=== PATIENT | female | born 1945 | race Caucasian/White ===

== ENCOUNTER 2018-04-07 08:39 | Outpatient (CLI) | payer MEDICARE, BC, SELFPAY ==
[2018-03-27 14:55] VITALS: BMI 29.2
[2018-04-07] VITALS (7 sets, daily range): BP systolic 121–145; BP diastolic 49–72; PULSE 69–74; RESP 16; TEMP 36.9–37.2; O2SAT 95–99
== END 2018-04-07 16:15 | disposition home or self-care (01) ==
LOC: MEDOUTP 08:40 → MS3 08:45
PROVIDERS: Referring Provider Internal Medicine Hematology & Oncology; Visit Provider Internal Medicine Hematology & Oncology
DX: Z51.89 Encounter for other specified aftercare (principal); D64.9 Anemia, unspecified; D70.9 Neutropenia, unspecified
CPT/HCPCS: 36430; 86644; 86850; 86900; 86920; 86922; J7040; P9040

== ENCOUNTER → 2018-04-30 13:54 | Outpatient (CLI) | payer MEDICARE, BC, SELFPAY ==
[2018-03-27 14:55] VITALS: BMI 29.2
[2018-04-30 14:19] LABS: Phosphorus 3.3 mg/dL (2.5-4.9)
== END ==
PROVIDERS: Referring Provider Internal Medicine Hematology & Oncology; Visit Provider Internal Medicine Hematology & Oncology
DX: C92.00 Acute myeloblastic leukemia, not having achieved remission (principal)
CPT/HCPCS: 84100

== ENCOUNTER → 2018-05-01 12:02 | Outpatient (CLI) | payer MEDICARE, BC, SELFPAY ==
[2018-03-27 14:55] VITALS: BMI 29.2
[2018-05-01 12:30] LABS: Phosphorus 3.2 mg/dL (2.5-4.9)
== END ==
PROVIDERS: Referring Provider Internal Medicine Hematology & Oncology; Visit Provider Internal Medicine Hematology & Oncology
DX: C92.00 Acute myeloblastic leukemia, not having achieved remission (principal)
CPT/HCPCS: 84100

== ENCOUNTER → 2018-05-07 08:28 | Outpatient (CLI) | payer MEDICARE, BC, SELFPAY ==
[2018-03-27 14:55] VITALS: BP 118/62; PULSE 74; RESP 17; TEMP 36.7; O2SAT 98; BMI 29.2
--- NOTE | 2018-03-27 15:15 | HP.PCM_ITS ---
History and Physical Date of Admission: 04/11/18 History and Physical Patient Name: Mary Jane White: 1945 From: [facility] DATE OF SURGERY: 04/11/2018 SCHEDULED PROCEDURE: right total hip replacement HISTORY OF PRESENT ILLNESS: This is a 72-year-old female with chief complaint of right hip pain it's been ongoing since August 2017 in getting worse. Pain is increased with stairs walking prolonged sitting and driving. He is described as intermittent dull and aching. The pain is located in the right groin. It does awaken her from sleep at night. Activity modifications including reduced ability to perform normal daily activities. Housework and grocery shopping are becoming increasingly difficult due to the progressive worsening of the right hip pain. Patient does perceive the affected leg is shorter than the other. Previous treatments have included shoe lift in the right shoe rest heat elevation [id number] ibuprofen and skin care specialist without any significant relief of her symptoms. She has not had any previous surgeries on this joint. She feels she failed adequate nonoperative measures and wishes to proceed with a right total hip replacement at this time. REVIEW OF SYSTEMS: ROS: Const: Denies anorexia, change in appetite, fever, difficulty sleeping, weight change. CV: Denies chest pain, heart murmur, irregular heartbeat and peripheral vascular disease. Resp: Denies asthma, cough, pneumonia, sleep apnea, shortness of breath, tuberculosis and wheezing. GI: Denies constipation, diarrhea, heartburn, nausea, rectal itching, bloody stools and vomiting. : . (F Genital Sx) Denies incontinence. Musculo: Denies pain, trouble walking and weakness. Skin: Reports history of shingles, but denies Raynaud's and tattoo. Neuro: Denies ambulatory dysfunction, dizziness, numbness/tingling and tremor. Psych: Denies anxiety, depression, insomnia, mental illness and stress. Tyler/Lymph: Denies anemia, bleeding/bruising tendency and past transfusion. Reviewed, no changes. PAST MEDICAL HISTORY: Advance Care Plan: No Advance Directives Effective Date: 03/16/2018 PMH: Medical Problems: High Blood Pressure - ? History Of Phlebitis, Gout, Arthritis Accidents: RT Shoulder - DISLOCATED & FX Surgical Hx: Hysterectomy - 1990 [facility] Tubal Ligation - [facility] Anesthesia Complications: None Assistive Devices: Glasses Reviewed and updated. 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 Personal Habits: Cigarette Use: Never Smoked Cigarettes.E-Cigarette Use: Never used.Alcohol: Denies use.Drug Use: Denies Use.Enjoy Exercising: Daily. Reviewed and updated. 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 Respiratory: Assessment of respiratory effort: NORMAL Other: Auscultation of lungs: clear to auscultation no wheezes, rhonchi or rales. Cardiovascular: Auscultation of heart: regular rate and rhythm, no murmurs, gallops or rubs. Exam of carotid arteries: NORMAL Other: Gastrointestinal: Exam of abdomen: soft, nontender, nondistended bowel sounds present. Lymphatic: Palpation of nodes in neck: NORMAL Other: Palpation of nodes in Axillae: NORMAL Other: Neurological: see below Psychiatric: Orientation to time, place and person: NORMAL Other: Mood and affect: NORMAL Other: PHYSICAL EXAMINATION: Exam: Const: Appears healthy. No signs of apparent distress present. Alert and oriented x 3. Musculo: Mild antalgic gait Hips: Insp/Palp: Mild trochanteric tenderness bilaterally Left hip: Flexion 95 degrees with obligatory external rotation, 5 degrees internal rotation, 15 degrees external rotation. 5/5 hip flexion Right hip: Flexion 90 degrees, 5 degrees internal rotation with reproduction of pain, 15 degrees external rotation. 5/5 hip flexion strength 3mm shorter on the right Skin: Skin is warm, dry and intact. Neuro: Sensation to light touch is intact in the lower extremities deep peroneal, lower extremities dorsal cutaneous, lower extremities saphenous, lower extremities sural and lower extremities tibial nerve distribution. Neurological and vascular function intact. IMAGING STUDIES: X-rays of right hip from [facility] as well as [facility] dated March 27, 2018 are consistent with joint space narrowing, subchondral sclerosis and osteophyte formation consistent with severe osteoarthritis IMPRESSION: Primary osteoarthritis right hip Hypertension History of phlebitis Gout PLAN: The surgeon did discuss and review all treatment options with the patient including surgical versus nonsurgical. At this time the patient does wish to proceed with the above-stated procedure. Potential risks benefits and complications of the procedure were discussed and reviewed with the patient including but not limited to , infection, nerve and blood vessel damage, persistent pain, numbness, tingling, paresthesias, blood clot, pulmonary embolism, in the requirement for possible further surgery. Patient expressed full understanding. Has no further questions for the doctor. Does agree to proceed with the above-stated procedure, and has signed the appropriate surgery consent form. Their plan is for discharge to home upon leaving the hospital
--- NOTE | 2018-03-27 15:17 | SDCEKG_ITS ---
Test Reason : Blood Pressure : / mmHG Vent. Rate : 068 BPM Atrial Rate : 068 BPM P-R Int : 166 ms QRS Dur : 094 ms QT Int : 394 ms P-R-T Axes : 053 033 058 degrees QTc Int : 418 ms Normal sinus rhythm Normal ECG Confirmed by LIS WALTERS, NANO ([id number]), science editor MIKA LI ([id number] on 03/28/2018 10:03:28 AM Referred By: Jermain Chang Confirmed By:NANO HAYS MD
--- NOTE | 2018-03-27 15:48 | RAD_ITS ---
STUDY: X-RAY CHEST REASON FOR EXAM: Female, 72 years old. Pre-op. TECHNIQUE: PA and lateral views of the chest. COMPARISON: None. FINDINGS: The lungs are clear and expanded. There is no demonstrated pleural abnormality. Normal size heart. Normal mediastinum and harley. Normal visualized pulmonary arteries. Normal visualized aortic arch and descending thoracic aorta. There is demineralization of the osseous structures. There is an anterior compression deformity of a mid thoracic vertebra that is likely chronic. Normal visualized ribs, clavicles, and shoulders. There is no demonstrated abnormality of the visualized soft tissue structures of the upper abdomen. RAD/Chest PA and Lateral IMPRESSION: No acute cardiopulmonary process. Electronically Signed: Maryana Moya MD at 20:01 EST Tel , Service support ,
[2018-03-27 16:18] LABS: Anion Gap 7 (5-15); BUN 21 mg/dL (7-18); BUN/Creat Ratio 19.3 RATIO (10-20); Calcium,Total 8.8 mg/dL (8.5-10.1); Chloride 95 mmol/L (98-107); Creatinine, Serum 1.09 mg/dL (0.55-1.02); EST Glomerular Filtration Rate 52 mL/min (>60); Est Glom Filt Rate - Afr Amer 63 mL/min (>60); Estimated Creatinine Clearance 33.51 ml/min; Glucose 97 mg/dL (74-106); Potassium 3.4 mmol/L (3.5-5.1); Sodium Level 132 mmol/L (136-145)
[2018-03-27 16:56] LABS: Absolute Lymphocyte Count 1.05 X10^3/ul (0.83-4.51); Absolute Neutrophil Count 0.7 X10^3/uL (2.0-7.7); Eosinophil# 0.01 X10^3/uL; Eosinophils% 0.6 % (0-5); Hematocrit 19.4 % (37-47); Hemoglobin 6.5 g/dl (12.0-15.0); Lymphocyte # 1.05 X10^3/ul (4.0); Lymphocyte % 58.3 % (19-41); Mean Corp Hgb Conc 33.5 g/gl (32-36); Mean Corpuscular Hgb 39.9 pg (27.0-32.0); Mean Platelet Vol. 9.1 fl (6.2-12.0); Monocyte# 0.06 X10^3/uL; Monocyte% 3.3 % (0-10); Neutrophil # 0.66 X10^3/uL (2.7-7.7); Neutrophil % 36.7 % (47-70); Platelet Count 191 K/mm3 (150-450); RBC Distribution Width CV 14.5 % (11.6-14.6); RBC Distribution Width SD 62.4 fl (35.1-43.9); Red Blood Count 1.63 M/mm3 (4.2-5.4); White Blood Count 1.8 K/mm3 (4.4-11.0)
[2018-03-27 16:59] LABS: Differential Indicated SCAN CRITERIA MET; POSITIVE COUNT NO; POSITIVE DIFFERENTIAL YES; POSITIVE MORPHOLOGY NO
[2018-03-27 17:01] LABS: Anisocytosis 1+; Microcytosis RARE
== END ==
PROVIDERS: Referring Provider Specialist; Visit Provider Specialist
DX: M16.11 Unilateral primary osteoarthritis, right hip (principal); Z53.9 Procedure and treatment not carried out, unspecified reason; I10 Essential (primary) hypertension; M10.9 Gout, unspecified; Z86.72 Personal history of thrombophlebitis
CPT/HCPCS: 71046; 80048; 85025; 87081; 93005

== ENCOUNTER → 2018-05-08 08:02 | Outpatient (CLI) | payer MEDICARE, BC, SELFPAY ==
[2018-03-27 14:55] VITALS: BMI 29.2
[2018-05-08] VITALS (8 sets, daily range): BP systolic 122–154; BP diastolic 68–77; PULSE 74–89; RESP 16–18; TEMP 35.9–36.8; O2SAT 97–100; BMI 29.9
== END ==
PROVIDERS: Referring Provider Internal Medicine Hematology & Oncology; Visit Provider Internal Medicine Hematology & Oncology
DX: C92.00 Acute myeloblastic leukemia, not having achieved remission (principal)
CPT/HCPCS: 36430; 86850; 86900; 86920; 86922; J7040; P9016; A4216

== ENCOUNTER → 2018-06-04 13:14 | Outpatient (CLI) | payer MEDICARE, BC, SELFPAY ==
[2018-05-08 08:11] VITALS: BMI 29.9
== END ==
PROVIDERS: Referring Provider Internal Medicine Hematology & Oncology; Visit Provider Internal Medicine Hematology & Oncology
DX: C92.00 Acute myeloblastic leukemia, not having achieved remission (principal)
CPT/HCPCS: 86850; 86900; 86920; 86922

== ENCOUNTER → 2018-06-05 08:14 | Outpatient (CLI) | payer MEDICARE, BC, SELFPAY ==
[2018-05-08 08:11] VITALS: BMI 29.9
[2018-06-05] VITALS (7 sets, daily range): BP systolic 114–138; BP diastolic 61–97; PULSE 73–92; RESP 16; TEMP 36.2–36.8; O2SAT 97–100; BMI 29.9
== END ==
PROVIDERS: Referring Provider Internal Medicine Hematology & Oncology; Visit Provider Internal Medicine Hematology & Oncology
DX: C92.00 Acute myeloblastic leukemia, not having achieved remission (principal)
CPT/HCPCS: 36430; 86850; 86900; 86920; 86922; J7040; P9016; A4216

== ENCOUNTER → 2018-06-29 07:55 | Outpatient (CLI) | payer MEDICARE, BC, SELFPAY ==
[2018-06-05 08:23] VITALS: BMI 29.9
[2018-06-29 08:14] VITALS: BP 146/65; PULSE 100; RESP 16; TEMP 36.6; O2SAT 99; BMI 30.2
[2018-06-29 08:57] VITALS: BP 141/78; PULSE 89; RESP 18; TEMP 36.8
[2018-06-29 12:12] VITALS: BP 150/85; PULSE 95; RESP 16; TEMP 36.8; O2SAT 99
[2018-06-29 12:17] VITALS: BP 139/74; PULSE 78; RESP 16; TEMP 36.6; O2SAT 98
[2018-06-29 13:17] VITALS: BP 134/72; PULSE 86; RESP 16; TEMP 36.5
== END ==
PROVIDERS: Referring Provider Internal Medicine Hematology & Oncology; Visit Provider Internal Medicine Hematology & Oncology
DX: C92.00 Acute myeloblastic leukemia, not having achieved remission (principal)
CPT/HCPCS: 36430; 86644; 86850; 86900; 86920; 86922; J7040; P9040; A4216

== ENCOUNTER → 2018-07-13 07:55 | Outpatient (CLI) | payer MEDICARE, BC, SELFPAY ==
[2018-06-29 08:14] VITALS: BMI 30.2
[2018-07-13] VITALS (9 sets, daily range): BP systolic 117–164; BP diastolic 60–87; PULSE 73–93; RESP 15–18; TEMP 36.1–36.7; O2SAT 93–100; BMI 30.2
== END ==
PROVIDERS: Referring Provider Internal Medicine Hematology & Oncology; Visit Provider Internal Medicine Hematology & Oncology
DX: C92.00 Acute myeloblastic leukemia, not having achieved remission (principal)
CPT/HCPCS: 36430; 86644; 86850; 86900; 86920; 86922; 86965; J7040; P9037; P9040; A4216

== ENCOUNTER → 2018-08-03 07:59 | Outpatient (CLI) | payer MEDICARE, BC, SELFPAY ==
[2018-07-13 08:13] VITALS: BMI 30.2
[2018-08-03] VITALS (7 sets, daily range): BP systolic 116–156; BP diastolic 63–80; PULSE 77–99; RESP 16; TEMP 36.2–36.5; O2SAT 96–100; BMI 30.2
== END ==
PROVIDERS: Referring Provider Internal Medicine Hematology & Oncology; Visit Provider Internal Medicine Hematology & Oncology
DX: C92.00 Acute myeloblastic leukemia, not having achieved remission (principal)
CPT/HCPCS: 36430; 86644; 86850; 86900; 86920; 86922; J7040; P9040; A4216

== ENCOUNTER → 2018-08-10 08:03 | Outpatient (CLI) | payer MEDICARE, BC, SELFPAY ==
[2018-08-03 08:08] VITALS: BMI 30.2
[2018-08-10 08:25] VITALS: BP 122/64; PULSE 87; RESP 16; TEMP 36.3; O2SAT 100; BMI 30.2
[2018-08-10 09:20] VITALS: BP 120/65; PULSE 77; RESP 16; TEMP 36.1; O2SAT 100
[2018-08-10 09:59] VITALS: BP 130/64; PULSE 75; RESP 16; TEMP 36.2; O2SAT 100
== END ==
PROVIDERS: Referring Provider Internal Medicine Hematology & Oncology; Visit Provider Internal Medicine Hematology & Oncology
DX: Z51.89 Encounter for other specified aftercare (principal); C92.40 Acute promyelocytic leukemia, not having achieved remission
CPT/HCPCS: 36430; 86900; 86965; J7040; P9037; A4216

== ENCOUNTER → 2018-08-14 07:50 | Outpatient (CLI) | payer MEDICARE, BC, SELFPAY ==
[2018-08-10 08:25] VITALS: BMI 30.2
[2018-08-14] VITALS (9 sets, daily range): BP systolic 106–136; BP diastolic 52–76; PULSE 66–90; RESP 16; TEMP 36.2–37.1; O2SAT 97–100; BMI 30.2
== END ==
PROVIDERS: Referring Provider Internal Medicine Hematology & Oncology; Visit Provider Internal Medicine Hematology & Oncology
DX: Z51.89 Encounter for other specified aftercare (principal); C92.00 Acute myeloblastic leukemia, not having achieved remission
CPT/HCPCS: 36430; 86850; 86900; 86920; 86922; J7040; P9040; A4216

== ENCOUNTER → 2018-08-21 08:54 | Outpatient (CLI) | payer MEDICARE, BC, SELFPAY ==
[2018-08-14 08:21] VITALS: BMI 30.2
[2018-08-21 09:07] VITALS: BP 158/75; PULSE 73; RESP 16; TEMP 35.9; O2SAT 99; BMI 30.2
[2018-08-21 09:56] VITALS: BP 131/65; PULSE 65; RESP 16; TEMP 35.9; O2SAT 99
[2018-08-21 10:27] VITALS: BP 139/69; PULSE 69; RESP 16; TEMP 36.1; O2SAT 99
== END ==
PROVIDERS: Referring Provider Internal Medicine Hematology & Oncology; Visit Provider Internal Medicine Hematology & Oncology
DX: C92.00 Acute myeloblastic leukemia, not having achieved remission (principal)
CPT/HCPCS: 36430; 86644; 86900; 86965; J7040; P9037; A4216

== ENCOUNTER → 2018-08-24 09:30 | Outpatient (CLI) | payer MEDICARE, BC, SELFPAY ==
[2018-08-21 09:07] VITALS: BMI 30.2
[2018-08-24 09:58] VITALS: BP 150/73; PULSE 77; RESP 18; TEMP 36.5; O2SAT 98; BMI 30.2
[2018-08-24 10:30] VITALS: BP 126/64; PULSE 73; TEMP 36.5; O2SAT 96
[2018-08-24 12:30] VITALS: BP 138/82; PULSE 75; RESP 16; TEMP 37.1; O2SAT 96
== END ==
PROVIDERS: Referring Provider Internal Medicine Hematology & Oncology; Visit Provider Internal Medicine Hematology & Oncology
DX: C92.00 Acute myeloblastic leukemia, not having achieved remission (principal)
CPT/HCPCS: 36430; 86850; 86900; 86920; 86922; J7040; P9040; A4216

== ENCOUNTER 2018-08-27 10:29 | Inpatient (IN) | payer MEDICARE, BC, SELFPAY ==
[2018-08-24 09:58] VITALS: BMI 30.2
[2018-08-27] VITALS (7 sets, daily range): BP systolic 149–190; BP diastolic 76–85; PULSE 74–90; RESP 14–18; TEMP 36.6–37.2; O2SAT 94–98; BMI 30.2; BMI 30.6
--- NOTE | 2018-08-27 10:50 | CT_ITS ---
STUDY: CT ABDOMEN AND PELVIS WITHOUT CONTRAST REASON FOR EXAM: Female, 72 years old. Right flank pain x1 week RADIATION DOSAGE (If Supplied By Facility): CTDIvol = ( 11.68 ) mGy, DLP = ( 560.34 ) mGycm TECHNIQUE: Transaxial images were obtained from the dome of the diaphragm to the symphysis pubis without oral contrast, and without intravenous contrast. Sagittal and coronal images were reconstructed. Individualized dose optimization techniques were used for this CT. COMPARISON: None. FINDINGS: Likely chronic elevation of the left hemidiaphragm noted with atelectasis in the left lung base. The visualized portions of the heart are within normal limits. Normal liver. Normal gallbladder and extrahepatic biliary system. Normal spleen. Normal pancreas. Normal bilateral adrenal glands. Normal right kidney. Normal left kidney. Normal visualized stomach. Normal small intestine. Retained stool noted in the colon. The appendix is visualized and appears normal. Next best seen on axial images 120 through 125. Normal abdominal aorta. Normal inferior vena cava. Normal retroperitoneum. Normal urinary bladder. There is absence of the uterus consistent with a prior hysterectomy. Normal abdominal wall. There are diffuse degenerative changes of the visualized lumbar spine, and pelvis. CT/Abdomen/Pelvis without Cont IMPRESSION: No obstructive uropathy. No CT evidence of an acute inflammatory process, normal appendix visualized Retained stool noted in the colon No free intraperitoneal fluid, air, or suspicious adenopathy Electronically Signed: Pineda Hurley MD at 11:58 EDT , Service support ,
[2018-08-27] MEDS: Ondansetron 4 MG/2 ML Vial IV (11:20)
[2018-08-27] MEDS: 0.9% Normal Saline 1,000 ML 125 ML IV ×2 (11:20→15:32)
[2018-08-27] MEDS: Morphine 4 MG/ML Syringe IV (11:20)
[2018-08-27 11:43] LABS: Hematocrit 26.4 % (37-47); Hemoglobin 9.3 g/dL (12.0-15.0); Mean Corp Hgb Conc 35.2 g/dL (32-36); Mean Corpuscular Hgb 29.9 pg (27.0-32.0); Mean Corpuscular Volume 84.9 fL (81-99); Mean Platelet Vol. 10.9 fl (6.2-12.0); NRBC Flagged by Analyzer 0 % (0-5); POSITIVE COUNT YES; POSITIVE DIFFERENTIAL YES; POSITIVE MORPHOLOGY YES; RBC Distribution Width CV 12.9 % (11.6-14.6); RBC Distribution Width SD 39.3 fl (35.1-43.9); Red Blood Count 3.11 M/mm3 (4.2-5.4); White Blood Count 2.3 K/mm3 (4.4-11.0)
[2018-08-27 11:48] LABS: Differential Indicated MANUAL DIFF
[2018-08-27 11:50] LABS: Platelet Count 22 K/mm3 (150-450)
--- NOTE | 2018-08-27 11:50 | ED.RN ---
PLATELET COUNT 22. DR COLEMAN
[2018-08-27 11:56] LABS: ALB/GLOB Ratio 0.6 RATIO (0.9-2.4); AST(SGOT) 8 U/L (15-37); Alanine Aminotransfer ALT/SGPT 17 U/L (13-56); Albumin, Serum 2.7 g/dL (3.2-5.0); Alkaline Phosphatase 76 U/L (45-117); Anion Gap 8 (5-15); BUN 18 mg/dL (7-18); BUN/Creat Ratio 20.4 RATIO (10-20); Calcium,Total 9.4 mg/dL (8.5-10.1); Chloride 88 mmol/L (98-107); Creatinine, Serum 0.88 mg/dL (0.55-1.02); EST Glomerular Filtration Rate 67 mL/min (>60); Est Glom Filt Rate - Afr Amer 81 mL/min (>60); Estimated Creatinine Clearance 62.07 ml/min; Globulin 4.2 g/dL (2.2-4.2); Glucose 122 mg/dL (74-106); Protein, Total 6.9 g/dL (6.4-8.2); Sodium Level 128 mmol/L (136-145)
[2018-08-27 12:06] LABS: Lactic Acid 1.4 mmol/L (0.4-2.0)
[2018-08-27 12:45] LABS: Mucous, Urine 0 SEEN /hpf (<or=2+); White Blood Cells 0 SEEN /hpf (0-5)
[2018-08-27 12:49] LABS: Color, Urine Straw (Yellow); Glucose, Dipstick Normal (Normal); Ketone-Dipstick Negative (Negative); Leukocyte Esterase-Dipstick Negative /ul (Negative); Nitrite-Dipstick Negative (Negative); Occult Blood-Urine 25 /ul (Negative); Protein-Dipstick Negative (Negative); Urine Bilirubin Dipstick Negative (Negative); Urine Clarity Clear (Clear); Urine Urobilinogen Normal (Normal)
[2018-08-27 12:56] LABS: Bacteria RARE /hpf (None Seen); Red Blood Cells-Urine 0-5 SEEN /hpf (0-5); Squamous Epithelial Cells - UA 0-5 SEEN /hpf (5-10)
--- NOTE | 2018-08-27 13:14 | ED.VISSUMM ---
- ER Visit Summary Date of Service: 08/27/18 Chief Complaint: [Right flank pain] History of Present Illness: The patient is a 72 F [presents to the emergency department with pain for over a week in her right back. Patient denies any trauma. She currently rates her pain as a 10 out of 10. Patient states pain is worse by moving. Patient was seen by her oncologist recently and prescribed a muscle relaxer as well as prednisone and tramadol which is not helping her pain. Patient states he has not been able to sleep and is been miserable for the last 3 days. She denies any pain radiating down the back of her leg. She denies weakness in extremities. Patient is currently being treated for acute leukemia. Patient does have a history of hypertension also. Denies any weakness in extremities or saddle anesthesia.] Physical Examination: [HEENT-PERRLA, EOMI. Cranial nerves II through XII grossly intact. TMs clear. Mucous membranes moist. No adenopathy. Cardiovascular-regular rate and rhythm without murmur or ectopy Lungs-clear to auscultation, chest wall stable without crepitus or subcu emphysema Abdomen-normoactive bowel sounds, soft, nontender, no rebound or rigidity, no peritoneal signs. Back exam-patient has tenderness over the right lumbar paraspinal musculature. No erythema or warmth noted. No masses palpated. She has negative straight leg raises. Deep tendon reflexes are plus 2 out of 4 bilaterally at the patella and Achilles. Patient has normal 5 extension. Patient has normal sensation to light touch. Extremities-intact ?4, normal range of motion, normal pulses, atraumatic] Test Results: [CBC with differential 2.3, hemoglobin 9.3, hematocrit 26, placed on 2. Chemistries sodium 128, potassium 4.0, chloride 88, CO2 32, glucose 122, BUN 18, creatinine 0.88. LFTs were normal. Urinalysis was unremarkable. Lactate was 1.4. CT flank showed nothing acute.] Emergency Department Course and Treatment: [He was medicated with 4 mg of morphine 4 mg of Zofran. Continues to complain of severe pain especially with movement. Case was discussed with patient's oncologist.] Treatment Plan: [Admit for further work-up and evaluation of her back pain and pain control.] Disposition: [Admit] Impression: [Intractable back pain] This note was generated with needmade dictation software. It may contain incorrect words, spelling, and punctuation that were not noted in review of the chart prior to signing ED Disposition - Plan for ED Patient: Referrals: Anjali Tyler MD [Primary Care Provider] -
--- NOTE | 2018-08-27 13:20 | NURSING ---
DR JANES MCCOLLUM
[2018-08-27 13:31] LABS: Lymphocyte 14 % (19-41); Monocyte 15 % (0-10); Neutrophil-Segmented 71 % (47-70); Total Cells Counted 100 (MANUAL DIFF)
[2018-08-27 13:32] LABS: Platelet Estimate MKD DEC (ADEQ); Red Cell Morphology NORM C+C NORMAL (NORM C&C)
[2018-08-27 13:33] LABS: Absolute Neutrophil Count 1.6 X10^3/uL (2.0-7.7)
--- NOTE | 2018-08-27 13:33 | NURSING ---
304 JANES ACUTE BACK PAIN, ON CHEMO FOR LEUKOEMIA
[2018-08-27 13:34] LABS: Absolute Lymphocyte Count 0.32 X10^3/uL (0.83-4.51); Lymphocyte # 0.32 X10^3/ul (4.0)
--- NOTE | 2018-08-27 13:48 | HP.PCM_ITS ---
Problem List (1) Acute back pain Status: Acute (2) Lower urinary tract symptoms (LUTS) Status: Acute (3) Acute myeloid leukemia Status: Chronic (4) Pancytopenia Status: Chronic History of Present Illness Date of Admission: 08/27/18 Chief Complaint: Lower back pain for 2 weeks The patient is a 72 year old F with history of acute leukemia on chemotherapy last one about 2 and half weeks ago, follows Dr. Solomon came to ED with right- sided lower back pain for 2 weeks. She has chronic stiffness of back for 3 to 4 years but it got worse and with pain after chemotherapy. Right lower back pain radiates along the gluteal region to the front of thigh and terminates before knee. She is having difficulty in doing activities of daily living including changing posture bending or walking. She was put on muscle relaxant, prednisone and tramadol Dr. Quiles but it is not helping. She denies fever, chills, recent sick contact, URI symptoms including cough, nasal congestion. She said she recently has difficulty in emptying bladder and worsening of urine incontinence after she was put on muscle relaxant. She denies dysuria, increased frequency or urgency. Denies any perineal saddle anesthesia, or other neurological symptoms of paresthesia, numbness or tingling in pain. [] Past Medical History Past Medical History (Chronic Problems): Chronic Problems Acute myeloid leukemia (Chronic) Pancytopenia (Chronic) Allergies No Known Allergies Allergy (Verified 08/27/18 10:30) Home Medications: Ambulatory Orders Medication Instructions Recorded Triamterene/Hydrochlorothiazid 1 cap PO DAILY 03/27/18 [Dyazide 37.5-25 Capsule] Acyclovir 400 mg PO BID 06/05/18 Azacitidine [Vidaza] 100 mg SC UD 06/05/18 Potassium Chloride [K-Dur] 20 meq PO BID 06/05/18 Ondansetron [Zofran] 8 mg PO Q8H PRN PRN 06/29/18 Carisoprodol [Soma] 350 mg PO 4X/DAY PRN PRN 08/24/18 traMADol [Ultram] 50 - 100 mg PO Q6H PRN PRN 08/24/18 Allopurinol [Zyloprim] 300 mg PO DAILY 08/27/18 Venetoclax [Venclexta] 400 mg PO DAILY 08/27/18 levoFLOXacin tablet [Levaquin 500 mg PO DAILY 08/27/18 tablet] predniSONE tablet See Taper PO DAILY 08/27/18 Smoking Status: Never smoker - *Family History Paternal History Items: No pertinent history Review of Systems Constitutional: Denies: Chills, Fever, Weight Change HEENT: Denies: Head Aches, Sinus Congestion, Sinus Drainage Cardiovascular: Denies: Chest Pain, Palpitations Respiratory: Denies: Cough, Shortness of breath at rest, Sputum production Gastrointestinal: Denies: Abdominal Pain, Nausea, Vomiting Genitourinary: Reports: Incontinence, Retention. Denies: Dysuria, Frequency, Urgency Musculoskeletal: Reports: Back Pain, Joint Pain, Joint stiffness. Denies: Joint Tenderness Skin: Denies: Rash, Wounds Neurological: Denies: Numbness, Tingling, Focal weakness Psychiatric: Denies: Anxiety, Depression, Homicidal Ideations, Suicidal Ideations Hematologic/ Lymphatic: Denies: Easy Bruising, Easy Bleeding VTE Information - Inpt Only VTE Present on Admission: No VTE Mechan Device Prophylaxis: SCD's VTE Pharm Prophylaxis ordered?: No Reason prophylaxis not ordered:: Medical Contraindication Patient Problems: Active and Suspected Problems Acute back pain (Acute) Lower urinary tract symptoms (LUTS) (Acute) - Physical Exam General: Alert, Oriented x3, Cooperative HEENT: Atraumatic, PERRLA, EOMI, Normocephalic Neck: Supple, No JVD, Negative Carotid Bruits Lungs: Clear to auscultation, Normal air movement, No rhonchi, No wheeze, No rales Cardiovascular: Regular rate, Regular Rhythm, Normal S1, Normal S2, No murmurs Abdomen: Bowel Sounds Present, Soft, Non Tender, Non-Distended Extremities: No edema, Capillary Refill Less than 3 Seconds Skin: No rashes, No breakdown Musculoskeletal: Arthritic Changes, Tenderness - Tenderness present in right lumbar paravertebral muscle. Lumbar spine movement is stiff. Neurological: Cranial nerves II-XII grossly intact, Deep Tendon Reflexes 2+/4 and Symmetrical, Neuro grossly intact, - - Gross sensation to touch is decreased on right lower extremity. Babinski sign negative. Muscle strength of lower extremity could not be examined because of pain and spasm Psych/Mental Status: Normal Affect, Appropriate Vital Signs Temp Pulse Resp BP Pulse Ox 99.0 F 82 14 149/76 H 97 08/27/18 10:30 08/27/18 12:48 08/27/18 12:48 08/27/18 12:48 08/27/18 10:30 Oxygen Delivery Method Room Air Weight: 150 lb Body Mass Index (BMI) 30.2 Laboratory Tests Past 24 Hrs 08/27/18 08/27/18 08/27/18 11:30 11:30 11:30 WBC 2.3 L RBC 3.11 L Hgb 9.3 L Hct 26.4 L MCV 84.9 MCH 29.9 MCHC 35.2 RDW Std Deviation 39.3 RDW Coeff of Delma 12.9 Plt Count 22 L* MPV 10.9 Neut % (Auto) Not Reportable Absolute Neuts (auto) 1.6 L Absolute Lymphs (auto) 0.32 L Absolute Nucleated RBC 0.00 Total Counted 100 Neutrophils % (Manual) 71 H Lymphocytes % (Manual) 14 L Monocytes % (Manual) 15 H Nucleated RBC % 0 Diff Path Review May foll Platelet Estimate MKD DEC RBC Morphology NORM C+C Sodium 128 L Potassium 4.0 Chloride 88 L Carbon Dioxide 32.0 Anion Gap 8 BUN 18 Creatinine 0.88 Estim Creat Clear Calc 62.07 Est GFR (MDRD) Af Amer 81 Est GFR (MDRD) Non-Af 67 BUN/Creatinine Ratio 20.4 H Glucose 122 H Lactic Acid 1.4 Calcium 9.4 Total Bilirubin 0.30 AST 8 L ALT 17 Alkaline Phosphatase 76 Total Protein 6.9 Albumin 2.7 L Globulin 4.2 Albumin/Globulin Ratio 0.6 L Urine Color Urine Clarity Urine pH Ur Specific [place] Urine Protein Urine Glucose (UA) Urine Ketones Urine Occult Blood Urine Nitrite Urine Bilirubin Urine Urobilinogen Ur Leukocyte Esterase Urine RBC Urine WBC Ur Squamous Epith Cells Urine Bacteria Urine Mucus 08/27/18 12:35 WBC RBC Hgb Hct MCV MCH MCHC RDW Std Deviation RDW Coeff of Delma Plt Count MPV Neut % (Auto) Absolute Neuts (auto) Absolute Lymphs (auto) Absolute Nucleated RBC Total Counted Neutrophils % (Manual) Lymphocytes % (Manual) Monocytes % (Manual) Nucleated RBC % Diff Path Review Platelet Estimate RBC Morphology Sodium Potassium Chloride Carbon Dioxide Anion Gap BUN Creatinine Estim Creat Clear Calc Est GFR (MDRD) Af Amer Est GFR (MDRD) Non-Af BUN/Creatinine Ratio Glucose Lactic Acid Calcium Total Bilirubin AST ALT Alkaline Phosphatase Total Protein Albumin Globulin Albumin/Globulin Ratio Urine Color Straw Urine Clarity Clear Urine pH 8.0 Ur Specific [place] 1.010 Urine Protein Negative Urine Glucose (UA) Normal Urine Ketones Negative Urine Occult Blood 25 H Urine Nitrite Negative Urine Bilirubin Negative Urine Urobilinogen Normal Ur Leukocyte Esterase Negative Urine RBC 0-5 SEEN Urine WBC 0 SEEN Ur Squamous Epith Cells 0-5 SEEN Urine Bacteria RARE Urine Mucus 0 SEEN Assessment/Plan All Active Problems Acute back pain (Acute) Lower urinary tract symptoms (LUTS) (Acute) The patient is a 72 year old F with history of acute leukemia on chemotherapy last one about 2 and half weeks ago, follows Dr. Solomon came to ED with right- sided lower back pain for 2 weeks. She has chronic stiffness of back for 3 to 4 years but it got worse and with pain after chemotherapy. Right lower back pain radiates along the gluteal region to the front of thigh and terminates before knee. 1. Acute lumbar back pain with decreased sensation in right lower extremity: Patient is being admitted on [facility] floor. MRI lumbar and thoracic spine ordered. PT and OT ordered. On pain control oxycodone and morphine as needed along with muscle relaxant. Patient was on prednisone, tramadol which is discontinued and is started on Decadron and oxycodone. 2. Acute myeloid leukemia: Being managed by Dr. Quiles. AML medications continued. Patient is on acyclovir, Venclexta, acyclovir and allopurinol which are being continued. Serum magnesium, phosphorus and CPK ordered. 3. Pancytopenia: She has pancytopenia with WBC count 2.3 thousand, H&H 9.3/26.4, platelet count 22,000. Last platelet count was 191,000 in March 2018. On AZACITIDINE for thrombocytopenia. Patient has history of severe anemia and has been getting PRBC transfusion from Dr. Quiles Advanced directive/goal of life: CODE STATUS: Out of all options given including full code, DNR CC arrest and DNR CC, patient opted for full code. She wants all resuscitation measures including CPR, intubation, ventilation, tube feed therapy and central line for vasopressor if needed. Total time spent in [id number] encounter in discussion of advanced directive 18 minutes. Laboratory Results 08/27/18 11:30: WBC 2.3 L, RBC 3.11 L, Hgb 9.3 L, Hct 26.4 L, MCV 84.9, MCH 29.9, MCHC 35.2, RDW Std Deviation 39.3, RDW Coeff of Delma 12.9, Plt Count 22 L*, MPV 10.9, Neut % (Auto) Not Reportable, Absolute Neuts (auto) 1.6 L, Absolute Lymphs (auto) 0.32 L, Absolute Nucleated RBC 0.00, Total Counted 100, Neutrophils % (Manual) 71 H, Lymphocytes % (Manual) 14 L, Monocytes % (Manual) 15 H, Nucleated RBC % 0, Diff Path Review June, Platelet Estimate MKD DEC, RBC Morphology NORM C+C 08/27/18 11:30: Sodium 128 L, Potassium 4.0, Chloride 88 L, Carbon Dioxide 32.0, Anion Gap 8, BUN 18, Creatinine 0.88, Estim Creat Clear Calc 62.07, Est GFR (MDRD) Af Amer 81, Est GFR (MDRD) Non-Af 67, BUN/Creatinine Ratio 20.4 H, Glucose 122 H, Calcium 9.4, Total Bilirubin 0.30, AST 8 L, ALT 17, Alkaline Phosphatase 76, Total Protein 6.9, Albumin 2.7 L, Globulin 4.2, Albumin/Globulin Ratio 0.6 L 08/27/18 11:30: Lactic Acid 1.4 08/27/18 11:30: Magnesium Pending, Total Creatine Kinase Pending 08/27/18 12:35: Urine Color Straw, Urine Clarity Clear, Urine pH 8.0, Ur Specific [place] 1.010, Urine Protein Negative, Urine Glucose (UA) Normal, Urine Ketones Negative, Urine Occult Blood 25 H, Urine Nitrite Negative, Urine Bilirubin Negative, Urine Urobilinogen Normal, Ur Leukocyte Esterase Negative, Urine RBC 0-5 SEEN, Urine WBC 0 SEEN, Ur Squamous Epith Cells 0-5 SEEN, Urine Bacteria RARE, Urine Mucus 0 SEEN Code Visit Inpatient E&M: 88022 Init Hosp L3 Procedures: 06852 Advncd Care Plan 30 Min
--- NOTE | 2018-08-27 14:26 | MRI_ITS ---
We are attempting to reach an attending provider to discuss findings. An addendum with communication details will be sent when the communication is complete. HISTORY: t. back pain, leukemia, chemobone marrow bx 08/15/18, bilat teg weakness EXAM/TECHNIQUE: MR Spine Lumbar W/O Contrast: 1.5 Kasandra. Multiplanar, multisequence. COMPARISON: CT abdomen and pelvis earlier same date. FINDINGS: # of images incl. paperwork: 126 Irregularity of the left greater than right L4-5 and bilateral L5-S1 facet joints with small effusions. Mild edema in the immediately adjacent fat and posterior paraspinal muscles. No abscess. At T12-L1, there are prominent degenerative signal changes in the endplates and moderate loss of disc space. No significant spinal canal or foraminal narrowing. Conus terminates at the level of the L1 inferior endplate with normal signal. L1-2 is unremarkable. At L2-3, diffuse disc bulge and mild bilateral facet degeneration causes only mild narrowing. At L3-4, there are prominent Schmorl's nodes within the right aspect of the endplates, with disc space loss and degenerative signal changes in the endplates. Incidental hemangioma in the L3 vertebral body. Osteophytes cause mild spinal canal and moderate bilateral foraminal narrowing with no evidence of nerve root impingement. At L4-5, mild degenerative endplate irregularity and moderate degenerative signal changes in the endplates with disc space loss. Disc osteophyte complex and prominent epidural fat cause mild spinal canal narrowing. Facet and vertebral body osteophytes extend into and moderately narrow the left foramen. Please see above regarding the facet joints. At L5-S1, mild grade 1-2 mm degenerative anterolisthesis with unroofing of the disc and prominent epidural fat cause mild spinal canal narrowing. Moderate right and moderate to severe left foraminal narrowing due to osteophytes and unroofing of the disc. Please see above regarding the facet joints. No acute prevertebral pathology. The partially visible liver has diffuse low T1-2 signal. No compression of the cauda equina. MRI/Spine Lumbar (Routine) IMPRESSION: Irregularity of the left greater than right L4-5 and bilateral L5-S1 facet joints with small effusions. Mild edema in the immediately adjacent fat and posterior paraspinal muscles. Concerning for septic arthritis of these facet joints. No apparent abscess. Small abscesses might not be detected without IV contrast. Noninfectious acute on chronic facet arthropathy possible but less likely given the adjacent edema. No cauda equina compression. No other acute finding. Prominent degenerative changes described above. at 2050 Reported and signed by: Abiodun Thrasher MD Electronically Signed: Abiodun Thrasher, at 20:48 EDT Tel , Service support ,
--- NOTE | 2018-08-27 14:26 | MRI_ITS ---
HISTORY: rt. back pain, leukemia, chemobone marrow bx 08/15/18, bilat teg weakness EXAM/TECHNIQUE: MR Spine Thoracic W/O Contrast: Multiplanar, multisequence per 1.5 Kasandra. COMPARISON: No prior thoracic spine imaging for comparison. FINDINGS: # of images incl. paperwork: 168 No acute signal changes in the vertebrae. No concerning osseous lesions. Incidental hemangioma T10 vertebral body. Mild T6 and T8 loss of vertebral body height, with chronic signal changes. Multilevel Schmorl's nodes. Endplate degenerative signal changes and irregularity most prominent at T11-12 and T12-L1. Sagittal alignment anatomic. Mild right scoliosis thoracic spine and more prominent left scoliosis lumbar spine partially visible. Degenerative changes causing multilevel only mild spinal canal and mild foraminal narrowing. Normal signal and contour of the thoracic spinal cord and conus. The conus terminates at the level of the L1 inferior endplate. No acute findings in the paraspinal soft tissues. MRI/Spine Thoracic (Routine) IMPRESSION: No acute findings. No compression or signal abnormality in the thoracic spinal cord. Chronic findings as above. at 2025 Reported and signed by: Abiodun Thrasher MD Electronically Signed: Abiodun Thrasher, at 20:23 EDT Tel , Service support ,
[2018-08-27 14:45] LABS: CPK Total, Creatine Kinase 27 U/L (26-192); Magnesium 1.8 mg/dL (1.6-2.6)
[2018-08-27] MEDS: cycloBENZAPRine HCl 10 MG Tablet PO ×2 (15:22→21:49)
[2018-08-27] MEDS: dexAMETHasone 4 MG/ML Vial IV ×2 (15:22→21:48)
[2018-08-27] MEDS: 0.9% NaCl Peripheral Flush Adult/Peds IV ×2 (15:28→20:29)
[2018-08-27] MEDS: Famotidine 20 MG Tablet PO (15:32)
[2018-08-27] MEDS: Acyclovir 200 MG Capsule 400 MG PO (15:33)
[2018-08-27] MEDS: Morphine 2 MG/ML Syringe IV ×2 (15:33→20:26)
--- NOTE | 2018-08-27 19:46 | NURSING ---
1830-pt off unit via for mri
[2018-08-27] MEDS: oxyCODONE 5 MG Tablet PO (21:48)
[2018-08-28] MEDS: Morphine 2 MG/ML Syringe IV ×5 (01:45→23:53)
[2018-08-28] MEDS: 0.9% NaCl Peripheral Flush Adult/Peds IV ×5 (01:46→16:49)
[2018-08-28 02:00] VITALS: BP 151/75; PULSE 77; RESP 18; TEMP 36.6; O2SAT 97
--- NOTE | 2018-08-28 03:09 | PCM.RX.CS ---
Consult Pharmacy has been consulted to manage selected antiobiotic: Vancomycin Type of Consult: New start Labs: Sodium 128 mmol/L (136-145) L 08/27/18 11:30 Potassium 4.0 mmol/L (3.5-5.1) 08/27/18 11:30 Chloride 88 mmol/L (98-107) L 08/27/18 11:30 Carbon Dioxide 32.0 mmol/L (21.0-32.0) 08/27/18 11:30 8 (5-15) 08/27/18 11:30 BUN 18 mg/dL (7-18) 08/27/18 11:30 0.88 mg/dL (0.55-1.02) 08/27/18 11:30 Est GFR (MDRD) Af Amer 81 mL/min (>60) 08/27/18 11:30 Est GFR (MDRD) Non-Af 67 mL/min (>60) 08/27/18 11:30 20.4 RATIO (10-20) H 08/27/18 11:30 Glucose 122 mg/dL (74-106) H 08/27/18 11:30 Weight used for dosin.8 kg Estimated Creatinine Clearance: 50.01 Goal Trough: 15-20 mcg/mL Pharmacy Plan for Drug Dosing: Pharmacy Service will continue to monitor and adjust dosing as required. Medications Vancomycin HCl 1,750 mg/ (Sodium Chloride) 535 mls @ 250 mls/hr IV X1 ONE Stop: 08/28/18 05:38 Vancomycin HCl 750 mg/ Sodium (Chloride) 265 mls @ 250 mls/hr IV Q12H JORDI Follow-Up Labs: Trough Vancomycin Labs to be done on [date and time ordered]: 08/29 @ 1500
[2018-08-28 05:35] LABS: Absolute Lymphocyte Count 0.38 X10^3/uL (0.83-4.51); Hematocrit 23.6 % (37-47); Lymphocyte # 0.38 X10^3/ul (4.0); Lymphocyte % 31.9 % (19-41); Mean Corp Hgb Conc 33.9 g/dL (32-36); Mean Corpuscular Hgb 28.8 pg (27.0-32.0); Mean Corpuscular Volume 84.9 fL (81-99); Mean Platelet Vol. 10.9 fl (6.2-12.0); Monocyte# 0.12 X10^3/uL; Monocyte% 10.1 % (0-10); NRBC Flagged by Analyzer 0 % (0-5); Neutrophil # 0.65 X10^3/uL (2.7-7.7); Neutrophil % 54.6 % (47-70); POSITIVE COUNT YES; POSITIVE DIFFERENTIAL YES; POSITIVE MORPHOLOGY YES; RBC Distribution Width CV 12.8 % (11.6-14.6); RBC Distribution Width SD 39.1 fl (35.1-43.9); Red Blood Count 2.78 M/mm3 (4.2-5.4)
[2018-08-28] MEDS: cycloBENZAPRine HCl 10 MG Tablet PO ×3 (06:09→22:03)
[2018-08-28] MEDS: oxyCODONE 5 MG Tablet PO ×4 (06:12→22:03)
[2018-08-28 06:13] LABS: Anion Gap 8 (5-15); BUN 18 mg/dL (7-18); BUN/Creat Ratio 26.1 RATIO (10-20); Calcium,Total 8.6 mg/dL (8.5-10.1); Chloride 100 mmol/L (98-107); Creatinine, Serum 0.69 mg/dL (0.55-1.02); EST Glomerular Filtration Rate 89 mL/min (>60); Est Glom Filt Rate - Afr Amer 107 mL/min (>60); Estimated Creatinine Clearance 55.23 ml/min; Glucose 126 mg/dL (74-106); Phosphorus 3.7 mg/dL (2.5-4.9); Potassium 4.2 mmol/L (3.5-5.1); Sodium Level 137 mmol/L (136-145); Thyroid Stim Hormone (TSH) 0.41 uIU/mL (0.358-3.74)
[2018-08-28 06:22] LABS: Differential Indicated SCAN CRITERIA MET
[2018-08-28 06:23] LABS: Platelet Count 20 K/mm3 (150-450); White Blood Count 1.2 K/mm3 (4.4-11.0)
[2018-08-28 06:24] LABS: Differential Comment SCANNED; Platelet Estimate MKD DEC (ADEQ)
[2018-08-28 07:41] VITALS: BP 145/71; PULSE 71; RESP 14; TEMP 36.4; O2SAT 96
--- NOTE | 2018-08-28 08:36 | CON.PCM_ITS ---
- Problem List (1) Acute myeloid leukemia Status: Chronic (2) Septic joint Status: Acute Subjective Chief Complaint: Back Pain History of Present Illness: HPI: The patient is a 72-year-old female with a past medical history significant only for hypertension. She developed left hip pain last summer. She had undergone evaluation for this and was in need of left hip replacement surgery. ? Preoperative testing she was unexpectedly found to have significant anemia. She was referred back to Dr. Tyler who ordered repeat lab work. A CBC without differential on 03/29/2018 revealed a white count of 2300. The hemoglobin was 6.8 g/dL with a hematocrit of 19.5%. MCV was 119 in the MCH was 42 pg. ? Patient underwent repeat lab work the next day including a CBC with a differential. At study demonstrated a white count of 2500. Hemoglobin was 6.5 g/dL. Platelet count 229,000. Differential showed an absolute lymphocyte count of 800 and an absolute neutrophil count 1400. ? Chemistries from the same day showed a serum creatinine 1.09 mg/dL. LFTs were normal. Serum calcium was normal at 8.6 kg/dL. Folic acid level of the serum was elevated at 91.2 ng per mL. Vitamin B-12 level was 1590 pg per mL. TSH was normal. Serum iron was 98 and the TIBC was 356. ? Current therapy: 1) Vidaza. 2) Venetoclax 400 mg daily. patient has been receiving periodic red blood cell and platelet transfusions. About a week and a half ago on 08/15 she woke up with lumbar back pain. The pain worsened over the next several days. It was severe enough that she was having trouble bearing weight on her right leg, i.e. the side of the degenerative hip. She has not been running a fever nor has she had shaking chills. she had been taking levofloxacin 500 mg once a day as a prophylaxis for severe neutropenia since her diagnosis several months ago. In the office last week plain films of the lumbar spine revealed degenerative changes. Patient was given a prescription for prednisone taper and muscle relaxer. This did not help her pain. She presented to the ER yesterday. CT scan of abdomen and pelvis was unremarkable for etiology of pain. Particularly there was no hematoma in the previous site of her bone marrow biopsy. Subsequent MRI of the lumbar spine raise concern for facet joint infection. She was started on broad-spectrum antibiotics earlier today. Morphine helps the pain. Otherwise she has severe pain with trying to move, i.e. turning her trunk or trying to go to a standing position from sitting. He remains afebrile. Past Medical History: Chronic Problems Acute myeloid leukemia (Chronic) Pancytopenia (Chronic) Past Medical/Surgical History: Past Medical History - Most Recent Inpatient Visit Past Medical History Start: 08/27/18 14:20 Text: Status: Complete Freq: ONCE Protocol: [place] 08/27/18 14:34 [facility] [place] 08/27/18 14:39 [facility] [place] [id number][place] BMI Required to complete PMH What is Patient's BMI 30.6 Past Medical History Unable History Recalled No Query Text:Pt Unable/Family Not Present Neurologic Medical History Hx Stroke/TIA No Hx Dementia/Alzheimer's No Hx Parkinson's Disease No Hx Seizures No Hx Multiple Sclerosis No Hx Migraines No Cardiac Medical History VTE Present on Admission No Hx of Deep Vein Thrombosis/VTE/PE Yes: dvt years ago Hx Hypertension Yes: STATES CONTROLLED WITH MED Hx Chest Pain/Angina No Hx Heart Attack No Hx Cardiac Surgery/Stents/Etc. No Hx Heart Failure No Hx Pacemaker/AICD No Hx Irregular Heartbeat and/or Afib No Hx Anticoagulant Therapy No Query Text:(Coumadin, Aspirin, Plavix, Xarelto, etc.) Hx Pain in Legs when Walking/Leg Cramps No Respiratory Medical History Hx COPD No Hx Emphysema No Hx Smoking No Smoking Status Never smoker Hx Tobacco Use in last 12 months No Hx of Pipe Smoking No Hx of Cigar Smoking No Hx Sleep Apnea No Do you snore loudly (louder than talking No or can be heard through closed doors)? Do you often feel tired/ fatigued/ Yes sleepy during daytime? Has anyone observed you stop breathing No during sleep? STOP Results Positive GI Medical History Hx Ulcer No Hx Hepatitis No Hx Cirrhosis No Hx GI Bleed No Hx Unplanned Weight Loss No Genitourinary Medical History Indwelling Catheter in Place on Arrival/ No Admission Hx Renal Disease No Hx Dialysis No Musculoskeletal History Hx Arthritis Yes Hx Rheumatoid Arthritis No Endocrine Medical History Hx Diabetes No Hx Thyroid Disease No Hematologic Medical History Hx of Blood Transfusion Yes Hx of Transfusion in last 3 Months Yes Date of Last Transfusion (if within last August 24, 2018 3 months) Ever experience any problems with No transfusion(s)? Hx of Preganancy in last 3 Months No Nurse Filling Out Transfusion & SGESSEL Questions: Date: 08/27/18 Time: 14:38 Psycho/Social Medical History Hx Depression No Hx Anxiety No Hx Behavior Disorder No Hx Alcohol Use No Hx Substance Use No Other Medical History Hx Blood Disorders No Hx Anemia Yes: RESOLVED Hx Cancer Yes: AML-last chemo 08-03-18- sees Dr Patterson (diagnosed April 2018) Hx Drug Resistant Organism No Wound/Pressure Injury Present on Arrival No: to be assessed per primary /Admission rn Query Text:If yes, chart assessment in Shift/Clinical Findings Central Line/PICC/VAD Present on Arrival No /Admission Antibiotics within last 7 days? Yes Name of Antibiotic (Include dose/# days levaquin taken if known) Last day ATB taken 08/26/18 Risk for Readmission Number of Risk Factors 4 At Risk for Readmission Patient is At Risk For Readmission Patient is eligible for Call Back Y Paternal Family History: No pertinent history - Social History Smoking Status: Never smoker Allergies/Adverse Reactions: Allergy/AdvReac Type Severity Reaction Status Date / Time No Known Allergies Allergy Verified 08/27/18 10:30 Vital Signs Height 1.5 m Weight: 68.8 kg Weight in Pounds 151.7 lbs Pulse Ox 96 Temperature 97.6 F Pulse Rate 71 Respiratory Rate 14 Blood Pressure 145/71 Blood Pressure Position Semi-Fowlers - Physical Exam General: Alert, Oriented x3 Cardiac:: Regular rhythm Lungs: Clear to auscultation Abdomen:: Non-tender Laboratory Data: Laboratory Tests 08/28/18 08/28/18 08/27/18 Range/Units 04:58 04:58 12:35 WBC 1.2 L* (4.4-11.0) K/mm3 RBC 2.78 L (4.2-5.4) M/mm3 Hgb 8.0 L (12.0-15.0) g/dL Hct 23.6 L (37-47) % MCV 84.9 (81-99) fL MCH 28.8 (27.0-32.0) pg MCHC 33.9 (32-36) g/dL RDW Std Deviation 39.1 (35.1-43.9) fl RDW Coeff of Delma 12.8 (11.6-14.6) % Plt Count 20 L* (150-450) K/mm3 MPV 10.9 (6.2-12.0) fl Immature Gran % (Auto) 3.400 H (0.0-0.9) % Neut % (Auto) 54.6 Lymph % (Auto) 31.9 (19-41) % [place] % (Auto) 10.1 H (0-10) % Eos % (Auto) 0.0 (0-5) % Baso % (Auto) 0.0 (0-1) % Absolute Neuts (auto) Not Reportable (2.0-7.7) X10^3/uL Absolute Lymphs (auto) 0.38 L (0.83-4.51) X10^3/uL Absolute Nucleated RBC 0.00 (0-5) 10^3/uL Total Counted (MANUAL DIFF) Neutrophils % (Manual) (47-70) % Lymphocytes % (Manual) (19-41) % Monocytes % (Manual) (0-10) % Nucleated RBC % 0 (0-5) % Differential Comment SCANNED Diff Path Review May foll Platelet Estimate MKD DEC (ADEQ) RBC Morphology (NORM C&C) NORMAL Sodium 137 (136-145) mmol/L Potassium 4.2 (3.5-5.1) mmol/L Chloride 100 (98-107) mmol/L Carbon Dioxide 29.0 (21.0-32.0) mmol/L Anion Gap 8 (5-15) BUN 18 (7-18) mg/dL Creatinine 0.69 (0.55-1.02) mg/dL Estim Creat Clear Calc 55.23 ml/min Est GFR (MDRD) Af Amer 107 (>60) mL/min Est GFR (MDRD) Non-Af 89 (>60) mL/min BUN/Creatinine Ratio 26.1 H (10-20) RATIO Glucose 126 H (74-106) mg/dL Lactic Acid (0.4-2.0) mmol/L Calcium 8.6 (8.5-10.1) mg/dL Phosphorus 3.7 (2.5-4.9) mg/dL Magnesium (1.6-2.6) mg/dL Total Bilirubin (0.20-1.00) mg/dL AST (15-37) U/L ALT (13-56) U/L Alkaline Phosphatase (45-117) U/L Total Creatine Kinase (26-192) U/L Total Protein (6.4-8.2) g/dL Albumin (3.2-5.0) g/dL Globulin (2.2-4.2) g/dL Albumin/Globulin Ratio (0.9-2.4) RATIO TSH 0.41 (0.358-3.74) uIU/mL Urine Color Straw (Yellow) Urine Clarity Clear (Clear) Urine pH 8.0 (5.0 - 8.0) Ur Specific [place] 1.010 (1.002-1.030) Urine Protein Negative (Negative) mg/dl Urine Glucose (UA) Normal (Normal) mg/dl Urine Ketones Negative (Negative) mg/dl Urine Occult Blood 25 H (Negative) /ul Urine Nitrite Negative (Negative) Urine Bilirubin Negative (Negative) mg/dL Urine Urobilinogen Normal (Normal) mg/dl Ur Leukocyte Esterase Negative (Negative) /ul Urine RBC 0-5 SEEN (0-5) /hpf Urine WBC 0 SEEN (0-5) /hpf Ur Squamous Epith Cells 0-5 SEEN (5-10) /hpf Urine Bacteria RARE (None Seen) /hpf Urine Mucus 0 SEEN (<or=2+) /hpf 08/27/18 08/27/18 08/27/18 Range/Units 11:30 11:30 11:30 WBC (4.4-11.0) K/mm3 RBC (4.2-5.4) M/mm3 Hgb (12.0-15.0) g/dL Hct (37-47) % MCV (81-99) fL MCH (27.0-32.0) pg MCHC (32-36) g/dL RDW Std Deviation (35.1-43.9) fl RDW Coeff of Delma (11.6-14.6) % Plt Count (150-450) K/mm3 MPV (6.2-12.0) fl Immature Gran % (Auto) (0.0-0.9) % Neut % (Auto) Lymph % (Auto) (19-41) % [place] % (Auto) (0-10) % Eos % (Auto) (0-5) % Baso % (Auto) (0-1) % Absolute Neuts (auto) (2.0-7.7) X10^3/uL Absolute Lymphs (auto) (0.83-4.51) X10^3/uL Absolute Nucleated RBC (0-5) 10^3/uL Total Counted (MANUAL DIFF) Neutrophils % (Manual) (47-70) % Lymphocytes % (Manual) (19-41) % Monocytes % (Manual) (0-10) % Nucleated RBC % (0-5) % Differential Comment Diff Path Review Platelet Estimate (ADEQ) RBC Morphology (NORM C&C) NORMAL Sodium 128 L (136-145) mmol/L Potassium 4.0 (3.5-5.1) mmol/L Chloride 88 L (98-107) mmol/L Carbon Dioxide 32.0 (21.0-32.0) mmol/L Anion Gap 8 (5-15) BUN 18 (7-18) mg/dL Creatinine 0.88 (0.55-1.02) mg/dL Estim Creat Clear Calc 62.07 ml/min Est GFR (MDRD) Af Amer 81 (>60) mL/min Est GFR (MDRD) Non-Af 67 (>60) mL/min BUN/Creatinine Ratio 20.4 H (10-20) RATIO Glucose 122 H (74-106) mg/dL Lactic Acid 1.4 (0.4-2.0) mmol/L Calcium 9.4 (8.5-10.1) mg/dL Phosphorus (2.5-4.9) mg/dL Magnesium 1.8 (1.6-2.6) mg/dL Total Bilirubin 0.30 (0.20-1.00) mg/dL AST 8 L (15-37) U/L ALT 17 (13-56) U/L Alkaline Phosphatase 76 (45-117) U/L Total Creatine Kinase 27 (26-192) U/L Total Protein 6.9 (6.4-8.2) g/dL Albumin 2.7 L (3.2-5.0) g/dL Globulin 4.2 (2.2-4.2) g/dL Albumin/Globulin Ratio 0.6 L (0.9-2.4) RATIO TSH (0.358-3.74) uIU/mL Urine Color (Yellow) Urine Clarity (Clear) Urine pH (5.0 - 8.0) Ur Specific [place] (1.002-1.030) Urine Protein (Negative) mg/dl Urine Glucose (UA) (Normal) mg/dl Urine Ketones (Negative) mg/dl Urine Occult Blood (Negative) /ul Urine Nitrite (Negative) Urine Bilirubin (Negative) mg/dL Urine Urobilinogen (Normal) mg/dl Ur Leukocyte Esterase (Negative) /ul Urine RBC (0-5) /hpf Urine WBC (0-5) /hpf Ur Squamous Epith Cells (5-10) /hpf Urine Bacteria (None Seen) /hpf Urine Mucus (<or=2+) /hpf 08/27/18 Range/Units 11:30 WBC 2.3 L (4.4-11.0) K/mm3 RBC 3.11 L (4.2-5.4) M/mm3 Hgb 9.3 L (12.0-15.0) g/dL Hct 26.4 L (37-47) % MCV 84.9 (81-99) fL MCH 29.9 (27.0-32.0) pg MCHC 35.2 (32-36) g/dL RDW Std Deviation 39.3 (35.1-43.9) fl RDW Coeff of Delma 12.9 (11.6-14.6) % Plt Count 22 L* (150-450) K/mm3 MPV 10.9 (6.2-12.0) fl Immature Gran % (Auto) (0.0-0.9) % Neut % (Auto) Not Reportable Lymph % (Auto) (19-41) % [place] % (Auto) (0-10) % Eos % (Auto) (0-5) % Baso % (Auto) (0-1) % Absolute Neuts (auto) 1.6 L (2.0-7.7) X10^3/uL Absolute Lymphs (auto) 0.32 L (0.83-4.51) X10^3/uL Absolute Nucleated RBC 0.00 (0-5) 10^3/uL Total Counted 100 (MANUAL DIFF) Neutrophils % (Manual) 71 H (47-70) % Lymphocytes % (Manual) 14 L (19-41) % Monocytes % (Manual) 15 H (0-10) % Nucleated RBC % 0 (0-5) % Differential Comment Diff Path Review May foll Platelet Estimate MKD DEC (ADEQ) RBC Morphology NORM C+C (NORM C&C) NORMAL Sodium (136-145) mmol/L Potassium (3.5-5.1) mmol/L Chloride (98-107) mmol/L Carbon Dioxide (21.0-32.0) mmol/L Anion Gap (5-15) BUN (7-18) mg/dL Creatinine (0.55-1.02) mg/dL Estim Creat Clear Calc ml/min Est GFR (MDRD) Af Amer (>60) mL/min Est GFR (MDRD) Non-Af (>60) mL/min BUN/Creatinine Ratio (10-20) RATIO Glucose (74-106) mg/dL Lactic Acid (0.4-2.0) mmol/L Calcium (8.5-10.1) mg/dL Phosphorus (2.5-4.9) mg/dL Magnesium (1.6-2.6) mg/dL Total Bilirubin (0.20-1.00) mg/dL AST (15-37) U/L ALT (13-56) U/L Alkaline Phosphatase (45-117) U/L Total Creatine Kinase (26-192) U/L Total Protein (6.4-8.2) g/dL Albumin (3.2-5.0) g/dL Globulin (2.2-4.2) g/dL Albumin/Globulin Ratio (0.9-2.4) RATIO TSH (0.358-3.74) uIU/mL Urine Color (Yellow) Urine Clarity (Clear) Urine pH (5.0 - 8.0) Ur Specific [place] (1.002-1.030) Urine Protein (Negative) mg/dl Urine Glucose (UA) (Normal) mg/dl Urine Ketones (Negative) mg/dl Urine Occult Blood (Negative) /ul Urine Nitrite (Negative) Urine Bilirubin (Negative) mg/dL Urine Urobilinogen (Normal) mg/dl Ur Leukocyte Esterase (Negative) /ul Urine RBC (0-5) /hpf Urine WBC (0-5) /hpf Ur Squamous Epith Cells (5-10) /hpf Urine Bacteria (None Seen) /hpf Urine Mucus (<or=2+) /hpf Diagnostic Data: Diagnostic Data Abdomen/Pelvis CT 08/27/18 10:50 IMPRESSION: No obstructive uropathy. No CT evidence of an acute inflammatory process, normal appendix visualized Retained stool noted in the colon No free intraperitoneal fluid, air, or suspicious adenopathy Electronically Signed: Pineda Hurley MD at 11:58 EDT , Service support , Lumbar Spine MRI 08/27/18 14:26 IMPRESSION: Irregularity of the left greater than right L4-5 and bilateral L5-S1 facet joints with small effusions. Mild edema in the immediately adjacent fat and posterior paraspinal muscles. Concerning for septic arthritis of these facet joints. No apparent abscess. Small abscesses might not be detected without IV contrast. Noninfectious acute on chronic facet arthropathy possible but less likely given the adjacent edema. No cauda equina compression. No other acute finding. Prominent degenerative changes described above. at 2049 Reported and signed by: Abiodun Thrasher MD Electronically Signed: Abiodun Thrasher, at 20:48 EDT Tel , Service support , ADDENDUM: 08/27/182116 IMPRESSION: Irregularity of the left greater than right L4-5 and bilateral L5-S1 facet joints with small effusions. Mild edema in the immediately adjacent fat and posterior paraspinal muscles. Concerning for septic arthritis of these facet joints. No apparent abscess. Small abscesses might not be detected without IV contrast. Noninfectious acute on chronic facet arthropathy possible but less likely given the adjacent edema. No cauda equina compression. No other acute finding. Prominent degenerative changes described above. at 2049 Reported and signed by: Abiodun Thrasher MD N.B. : The above information has been verbally conveyed by Abiodun Thrasher to Roseline Navarro, charge nurse, [employer], on 08/27/2018 21:10:57 (ET). Electronically Signed: Abiodun Thrasher, at 20:48 EDT Tel , Service support , Thoracic Spine MRI 08/27/18 14:26 IMPRESSION: No acute findings. No compression or signal abnormality in the thoracic spinal cord. Chronic findings as above. at 2025 Reported and signed by: Abiodun Thrasher MD Electronically Signed: Abiodun Thrasher, at 20:23 EDT Tel , Service support , Assessment and Plan 1) Lumbar facet joint infection. Assessment: -MRI and clinical course concerning for septic arthritis of lumbar facets joints. -Blood cultures not obtained. Plan: -Continue broad spectrum antibiotics. -ID consult. 2) AML. Assessment: -Most recent bone marrow biopsy showed ~50% reduction in myeloblasts. -Plan for allogeneic BMT with sister as donor. Plan: -Continue Venetoclax 400 mg PO daily. -All blood products should be irradiated. -Would transfuse RBCs for Hgb < 7.5 g/dL and plts if < 10-15,000. Medications: Prescriptions This Visit Medication Instructions Recorded Allopurinol [Zyloprim] 300 mg PO DAILY 08/27/18 Venetoclax [Venclexta] 400 mg PO DAILY 08/27/18 levoFLOXacin tablet [Levaquin 500 mg PO DAILY 08/27/18 tablet] predniSONE tablet See Taper PO DAILY 08/27/18 Medications Added to Medication List This Visit Category Date Time Status Allopurinol [Zyloprim] Med 08/28/18 10:00 Active 300 mg PO DAILY Piperacil/Tazobactam [Zosyn] 3.375 gm Med 08/28/18 06:00 Active 0.9% Normal Saline 50 ml IV Q8 Vancomycin IV 750 mg Med 08/28/18 15:30 Active 0.9% Normal Saline 250 ml IV Q12H Primary Care Provider: Anjali Tyler MD Referring Provider:
--- NOTE | 2018-08-28 09:48 | PN_ITS ---
Patient Problems: Active and Suspected Problems Acute back pain (Acute) Septic joint (Suspected) Subjective: Chief complaint: Follow-up after admission for suspected septic arthritis of the bilateral L4-L5, L5-S1 face joints, leukopenia, neutropenia and thrombocytopenia. Patient seen and examined. No acute events overnight. Patient complained of low back pain, 4 out of 10 in severity, goes up to 10 x 10 upon ambulation. Denies fever or chills. Denies chest pain or shortness of breath. Her vital signs are stable. - Physical Exam General: Alert, Oriented x3, Cooperative, No apparent distress HEENT: Atraumatic, PERRLA, EOMI, Normocephalic Oral: Moist Mucosa, No Gingival or Mucosal Lesions/ Ulcerations Neck: Supple, No JVD, Negative Carotid Bruits, Trachea Midline, Thyroid Normal Size and Texture Lungs: Clear to auscultation, Normal air movement, No rhonchi, No wheeze, No rales Cardiovascular: Regular rate, Regular Rhythm, Normal S1, Normal S2, PMI Normal Abdomen: Bowel Sounds Present, Soft, Non Tender, Non-Distended, No Hepato- splenomegaly Extremities: No clubbing, No cyanosis, No edema Skin: No rashes, No breakdown Lymphatic: No Cervical, Supraclavicular, or Inguinal Adenopathy Neurological: Cranial nerves II-XII grossly intact, Motor Exam 5/5 strength throughout Psych/Mental Status: Normal Affect, Appropriate, Alert and oriented to time, place, person, mood and affect Vital Signs Temp Pulse Resp BP Pulse Ox 97.6 F L 71 14 145/71 H 96 08/28/18 07:41 08/28/18 07:41 08/28/18 07:41 08/28/18 07:41 08/28/18 07:41 Oxygen Delivery Method Room Air Weight: 151 lb 10.848 oz Body Mass Index (BMI) 30.6 Intake and Output for Last 24 Hours 08/26/18 08/27/18 08/28/18 23:59 23:59 23:59 Intake Total 1446 / 1446 Balance 1446 / 1446 Laboratory Tests Past 24 Hrs 08/27/18 08/27/18 08/27/18 11:30 11:30 11:30 WBC 2.3 L RBC 3.11 L Hgb 9.3 L Hct 26.4 L MCV 84.9 MCH 29.9 MCHC 35.2 RDW Std Deviation 39.3 RDW Coeff of [place] 12.9 Plt Count 22 L* MPV 10.9 Immature Gran % (Auto) Neut % (Auto) Not Reportable Lymph % (Auto) [place] % (Auto) Eos % (Auto) Baso % (Auto) Absolute Neuts (auto) 1.6 L Absolute Lymphs (auto) 0.32 L Absolute Nucleated RBC 0.00 Total Counted 100 Neutrophils % (Manual) 71 H Lymphocytes % (Manual) 14 L Monocytes % (Manual) 15 H Nucleated RBC % 0 Differential Comment Diff Path Review May foll Platelet Estimate MKD DEC RBC Morphology NORM C+C Sodium 128 L Potassium 4.0 Chloride 88 L Carbon Dioxide 32.0 Anion Gap 8 BUN 18 Creatinine 0.88 Estim Creat Clear Calc 62.07 Est GFR (MDRD) Af Amer 81 Est GFR (MDRD) Non-Af 67 BUN/Creatinine Ratio 20.4 H Glucose 122 H Lactic Acid 1.4 Calcium 9.4 Phosphorus Magnesium Total Bilirubin 0.30 AST 8 L ALT 17 Alkaline Phosphatase 76 Total Creatine Kinase Total Protein 6.9 Albumin 2.7 L Globulin 4.2 Albumin/Globulin Ratio 0.6 L TSH Urine Color Urine Clarity Urine pH Ur Specific [place] Urine Protein Urine Glucose (UA) Urine Ketones Urine Occult Blood Urine Nitrite Urine Bilirubin Urine Urobilinogen Ur Leukocyte Esterase Urine RBC Urine WBC Ur Squamous Epith Cells Urine Bacteria Urine Mucus 08/27/18 08/27/18 08/28/18 11:30 12:35 04:58 WBC RBC Hgb Hct MCV MCH MCHC RDW Std Deviation RDW Coeff of [place] Plt Count MPV Immature Gran % (Auto) Neut % (Auto) Lymph % (Auto) [place] % (Auto) Eos % (Auto) Baso % (Auto) Absolute Neuts (auto) Absolute Lymphs (auto) Absolute Nucleated RBC Total Counted Neutrophils % (Manual) Lymphocytes % (Manual) Monocytes % (Manual) Nucleated RBC % Differential Comment Diff Path Review Platelet Estimate RBC Morphology Sodium 137 Potassium 4.2 Chloride 100 Carbon Dioxide 29.0 Anion Gap 8 BUN 18 Creatinine 0.69 Estim Creat Clear Calc 55.23 Est GFR (MDRD) Af Amer 107 Est GFR (MDRD) Non-Af 89 BUN/Creatinine Ratio 26.1 H Glucose 126 H Lactic Acid Calcium 8.6 Phosphorus 3.7 Magnesium 1.8 Total Bilirubin AST ALT Alkaline Phosphatase Total Creatine Kinase 27 Total Protein Albumin Globulin Albumin/Globulin Ratio TSH 0.41 Urine Color Straw Urine Clarity Clear Urine pH 8.0 Ur Specific [place] 1.010 Urine Protein Negative Urine Glucose (UA) Normal Urine Ketones Negative Urine Occult Blood 25 H Urine Nitrite Negative Urine Bilirubin Negative Urine Urobilinogen Normal Ur Leukocyte Esterase Negative Urine RBC 0-5 SEEN Urine WBC 0 SEEN Ur Squamous Epith Cells 0-5 SEEN Urine Bacteria RARE Urine Mucus 0 SEEN 08/28/18 04:58 WBC 1.2 L* RBC 2.78 L Hgb 8.0 L Hct 23.6 L MCV 84.9 MCH 28.8 MCHC 33.9 RDW Std Deviation 39.1 RDW Coeff of [place] 12.8 Plt Count 20 L* MPV 10.9 Immature Gran % (Auto) 3.400 H Neut % (Auto) 54.6 Lymph % (Auto) 31.9 [place] % (Auto) 10.1 H Eos % (Auto) 0.0 Baso % (Auto) 0.0 Absolute Neuts (auto) Not Reportable Absolute Lymphs (auto) 0.38 L Absolute Nucleated RBC 0.00 Total Counted Neutrophils % (Manual) Lymphocytes % (Manual) Monocytes % (Manual) Nucleated RBC % 0 Differential Comment SCANNED Diff Path Review May foll Platelet Estimate MKD DEC RBC Morphology Sodium Potassium Chloride Carbon Dioxide Anion Gap BUN Creatinine Estim Creat Clear Calc Est GFR (MDRD) Af Amer Est GFR (MDRD) Non-Af BUN/Creatinine Ratio Glucose Lactic Acid Calcium Phosphorus Magnesium Total Bilirubin AST ALT Alkaline Phosphatase Total Creatine Kinase Total Protein Albumin Globulin Albumin/Globulin Ratio TSH Urine Color Urine Clarity Urine pH Ur Specific [place] Urine Protein Urine Glucose (UA) Urine Ketones Urine Occult Blood Urine Nitrite Urine Bilirubin Urine Urobilinogen Ur Leukocyte Esterase Urine RBC Urine WBC Ur Squamous Epith Cells Urine Bacteria Urine Mucus Clinical Impression(s) from Imaging Studies Abdomen/Pelvis CT 08/27/18 10:50 IMPRESSION: No obstructive uropathy. No CT evidence of an acute inflammatory process, normal appendix visualized Retained stool noted in the colon No free intraperitoneal fluid, air, or suspicious adenopathy Electronically Signed: Pineda Hurley MD at 11:58 EDT , Service support , Lumbar Spine MRI 08/27/18 14:26 IMPRESSION: Irregularity of the left greater than right L4-5 and bilateral L5-S1 facet joints with small effusions. Mild edema in the immediately adjacent fat and posterior paraspinal muscles. Concerning for septic arthritis of these facet joints. No apparent abscess. Small abscesses might not be detected without IV contrast. Noninfectious acute on chronic facet arthropathy possible but less likely given the adjacent edema. No cauda equina compression. No other acute finding. Prominent degenerative changes described above. at 2050 Reported and signed by: Abiodun Thrasher MD Electronically Signed: Abiodun Thrasher, at 20:48 EDT Tel , Service support , ADDENDUM: 08/27/182116 IMPRESSION: Irregularity of the left greater than right L4-5 and bilateral L5-S1 facet joints with small effusions. Mild edema in the immediately adjacent fat and posterior paraspinal muscles. Concerning for septic arthritis of these facet joints. No apparent abscess. Small abscesses might not be detected without IV contrast. Noninfectious acute on chronic facet arthropathy possible but less likely given the adjacent edema. No cauda equina compression. No other acute finding. Prominent degenerative changes described above. at 2049 Reported and signed by: Abiodun Thrasher MD N.B. : The above information has been verbally conveyed by Abiodun Thrasher to Roseline Navarro, charge nurse, MACHINE [employer]OL [employer], on 08/27/2018 21:10:57 (ET). Electronically Signed: Abiodun Thrasher, at 20:48 EDT Tel , Service support , Thoracic Spine MRI 08/27/18 14:26 IMPRESSION: No acute findings. No compression or signal abnormality in the thoracic spinal cord. Chronic findings as above. at 2024 Reported and signed by: Abiodun Thrasher MD Electronically Signed: Abiodun Thrasher, at 20:23 EDT Tel , Service support , Medical Necessity - Tobacco Use Smoking Status: Never smoker Assessment/Plan All Active Problems Acute back pain (Acute) This is a 72 years old female patient presented to the emergency room because of low back pain, found to have findings suspicious for septic arthritis of the bi lateral L4-L5, L5-S1 facet joints and also found to have leukopenia, neutropenia and thrombocytopenia. #1 low back pain/suspected septic arthritis of the bilateral L4-L5, L5-S1 facet joints: MRI lumbar spine reviewed. She is on IV vancomycin and Zosyn empirically. She has been afebrile. Blood culture sent today. Her vital signs are stable. Infectious disease consulted, appreciate recommendations. Infectious disease recommended to consult orthopedic surgery which was done, awaiting recommendation. Plan to continue empiric IV vancomycin and Zosyn. 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 Today, her total WBC is 1200, absolute neutrophil count is very low, not reportable but it was 6 cm yesterday. Plan for neutropenic precautions, re peat CBC with differential tomorrow morning. Oncology on the case. #3 thrombocytopenia: Again, due to chemotherapy. Her platelet count today is 20,000, it was 22,000 yesterday. No active bleeding at this time. No indication for transfusion unless patient develops bleeding or platelet count less than 10,000. Plan to repeat CBC tomorrow morning. 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 Oncology consulted, plan as above. #5 hypertension: Blood pressure stable, continue Dyazide. #6 DVT prophylaxis: SCDs, no chemical prophylaxis because of severe thrombocytopenia. This note was generated with [employer] software. It may contain incorrect words, spelling, and punctuation that were not noted in checking the note before signing. Code Visit Inpatient E&M: 11619 Subs Hosp L2
[2018-08-28] MEDS: Acyclovir 200 MG Capsule 400 MG PO ×2 (09:52→22:05)
[2018-08-28] MEDS: Famotidine 20 MG Tablet PO ×2 (09:52→22:06)
[2018-08-28] MEDS: Allopurinol 300 MG Tablet PO (09:53)
--- NOTE | 2018-08-28 10:09 | CON.PCM_ITS ---
Problem List (1) Acute back pain Status: Acute Reason for Consult: septic arthritis Consulted by: Dr. Velarde History of Present Illness: The patient is a 72 year old F with AML, dx several months ago, follows with Dr. Quiles, who presented with 1-2 weeks of progressive lower back pain. Pain is aching with intermittent sharp stabbing pain with movements. Occasionally pain will shoot down RLE to her knee. No fever, no night sweats, no trauma/hardware to her back. Had xrays done as an outpt and given some steroids. Pain worsened, came to ED. MRI showed possible septic arthritis, so she was started on vanc/zosyn. Feeling about the same today, family at bedside. Full ROS Performed and neg except as noted above. - Medical History Past Medical History (Chronic Problems): Chronic Problems Acute myeloid leukemia (Chronic) Pancytopenia (Chronic) Allergies/Adverse Reactions: Allergies No Known Allergies Allergy (Verified 08/27/18 10:30) Home Medications: Ambulatory Orders Medication Instructions Recorded Triamterene/Hydrochlorothiazid 1 cap PO DAILY 03/27/18 [Dyazide 37.5-25 Capsule] Acyclovir 400 mg PO BID 06/05/18 Azacitidine [Vidaza] 100 mg SC UD 06/05/18 Potassium Chloride [K-Dur] 20 meq PO BID 06/05/18 Ondansetron [Zofran] 8 mg PO Q8H PRN PRN 06/29/18 Carisoprodol [Soma] 350 mg PO 4X/DAY PRN PRN 08/24/18 traMADol [Ultram] 50 - 100 mg PO Q6H PRN PRN 08/24/18 Allopurinol [Zyloprim] 300 mg PO DAILY 08/27/18 Venetoclax [Venclexta] 400 mg PO DAILY 08/27/18 levoFLOXacin tablet [Levaquin 500 mg PO DAILY 08/27/18 tablet] predniSONE tablet See Taper PO DAILY 08/27/18 - Social History SMOKING STATUS:: Never smoker Vital Signs Temp Pulse Resp BP Pulse Ox 97.6 F L 71 14 145/71 H 96 08/28/18 07:41 08/28/18 07:41 08/28/18 07:41 08/28/18 07:41 08/28/18 07:41 Oxygen Delivery Method Room Air Weight: 68.8 kg Body Mass Index (BMI) 30.6 Laboratory Tests Past 24 Hrs 08/27/18 08/27/18 08/27/18 11:30 11:30 11:30 WBC 2.3 L RBC 3.11 L Hgb 9.3 L Hct 26.4 L MCV 84.9 MCH 29.9 MCHC 35.2 RDW Std Deviation 39.3 RDW Coeff of [place] 12.9 Plt Count 22 L* MPV 10.9 Immature Gran % (Auto) Neut % (Auto) Not Reportable Lymph % (Auto) [place] % (Auto) Eos % (Auto) Baso % (Auto) Absolute Neuts (auto) 1.6 L Absolute Lymphs (auto) 0.32 L Absolute Nucleated RBC 0.00 Total Counted 100 Neutrophils % (Manual) 71 H Lymphocytes % (Manual) 14 L Monocytes % (Manual) 15 H Nucleated RBC % 0 Differential Comment Diff Path Review May foll Platelet Estimate MKD DEC RBC Morphology NORM C+C Sodium 128 L Potassium 4.0 Chloride 88 L Carbon Dioxide 32.0 Anion Gap 8 BUN 18 Creatinine 0.88 Estim Creat Clear Calc 62.07 Est GFR (MDRD) Af Amer 81 Est GFR (MDRD) Non-Af 67 BUN/Creatinine Ratio 20.4 H Glucose 122 H Lactic Acid 1.4 Calcium 9.4 Phosphorus Magnesium Total Bilirubin 0.30 AST 8 L ALT 17 Alkaline Phosphatase 76 Total Creatine Kinase Total Protein 6.9 Albumin 2.7 L Globulin 4.2 Albumin/Globulin Ratio 0.6 L TSH Urine Color Urine Clarity Urine pH Ur Specific [place] Urine Protein Urine Glucose (UA) Urine Ketones Urine Occult Blood Urine Nitrite Urine Bilirubin Urine Urobilinogen Ur Leukocyte Esterase Urine RBC Urine WBC Ur Squamous Epith Cells Urine Bacteria Urine Mucus 08/27/18 08/27/18 08/28/18 11:30 12:35 04:58 WBC RBC Hgb Hct MCV MCH MCHC RDW Std Deviation RDW Coeff of [place] Plt Count MPV Immature Gran % (Auto) Neut % (Auto) Lymph % (Auto) [place] % (Auto) Eos % (Auto) Baso % (Auto) Absolute Neuts (auto) Absolute Lymphs (auto) Absolute Nucleated RBC Total Counted Neutrophils % (Manual) Lymphocytes % (Manual) Monocytes % (Manual) Nucleated RBC % Differential Comment Diff Path Review Platelet Estimate RBC Morphology Sodium 137 Potassium 4.2 Chloride 100 Carbon Dioxide 29.0 Anion Gap 8 BUN 18 Creatinine 0.69 Estim Creat Clear Calc 55.23 Est GFR (MDRD) Af Amer 107 Est GFR (MDRD) Non-Af 89 BUN/Creatinine Ratio 26.1 H Glucose 126 H Lactic Acid Calcium 8.6 Phosphorus 3.7 Magnesium 1.8 Total Bilirubin AST ALT Alkaline Phosphatase Total Creatine Kinase 27 Total Protein Albumin Globulin Albumin/Globulin Ratio TSH 0.41 Urine Color Straw Urine Clarity Clear Urine pH 8.0 Ur Specific [place] 1.010 Urine Protein Negative Urine Glucose (UA) Normal Urine Ketones Negative Urine Occult Blood 25 H Urine Nitrite Negative Urine Bilirubin Negative Urine Urobilinogen Normal Ur Leukocyte Esterase Negative Urine RBC 0-5 SEEN Urine WBC 0 SEEN Ur Squamous Epith Cells 0-5 SEEN Urine Bacteria RARE Urine Mucus 0 SEEN 08/28/18 04:58 WBC 1.2 L* RBC 2.78 L Hgb 8.0 L Hct 23.6 L MCV 84.9 MCH 28.8 MCHC 33.9 RDW Std Deviation 39.1 RDW Coeff of [place] 12.8 Plt Count 20 L* MPV 10.9 Immature Gran % (Auto) 3.400 H Neut % (Auto) 54.6 Lymph % (Auto) 31.9 [place] % (Auto) 10.1 H Eos % (Auto) 0.0 Baso % (Auto) 0.0 Absolute Neuts (auto) Not Reportable Absolute Lymphs (auto) 0.38 L Absolute Nucleated RBC 0.00 Total Counted Neutrophils % (Manual) Lymphocytes % (Manual) Monocytes % (Manual) Nucleated RBC % 0 Differential Comment SCANNED Diff Path Review May foll Platelet Estimate MKD DEC RBC Morphology Sodium Potassium Chloride Carbon Dioxide Anion Gap BUN Creatinine Estim Creat Clear Calc Est GFR (MDRD) Af Amer Est GFR (MDRD) Non-Af BUN/Creatinine Ratio Glucose Lactic Acid Calcium Phosphorus Magnesium Total Bilirubin AST ALT Alkaline Phosphatase Total Creatine Kinase Total Protein Albumin Globulin Albumin/Globulin Ratio TSH Urine Color Urine Clarity Urine pH Ur Specific [place] Urine Protein Urine Glucose (UA) Urine Ketones Urine Occult Blood Urine Nitrite Urine Bilirubin Urine Urobilinogen Ur Leukocyte Esterase Urine RBC Urine WBC Ur Squamous Epith Cells Urine Bacteria Urine Mucus - Other Studies Radiology: [] reviewed Other Studies: [] Route of nutrition/ use of supplements: [] Nutritional Intake: [] IV Site: [] Newman Catheter: [] - Physical Exam General: Alert, Oriented x3, Cooperative, No apparent distress HEENT: Atraumatic, PERRLA, EOMI Neck: Supple, No Nodes Lungs: Clear to auscultation, Normal air movement Cardiovascular: Regular rate, Regular Rhythm Abdomen: Soft, Non Tender, Non-Distended Extremities: No edema Skin: No rashes IV Site: Peripheral, without redness Musculoskeletal: No Tenderness to Palpation of Joints or Extremities, - - minimal pain over lumbar spine Neurological: Cranial nerves II-XII grossly intact - Assessment/Plan Antibiotics: [] Assessment/Plan: [] Active and Suspected Problems Acute back pain (Acute) Lower urinary tract symptoms (LUTS) (Acute) Septic joint (Acute) Neutropenic pt with AML, presenting with back pain. Given lack of fever and minimal pain on exam, I have relatively low suspicion for septic arthritis; though she may not be able to mount much of an inflammatory response given her low ANC. Oncology is following. She is on broad empiric coverage with vanc/zosyn. Will order bcx x2. Will consult Dr. Chang to review spine MRI and see what could be causing this pain. She had been evaluated previously for R hip replacement which could be contributing. Will follow, thank you, d/w nursing.
--- NOTE | 2018-08-28 10:27 | NURSING ---
Addendum entered by Shital Ventura 08/28/18 12:46: Dr. English called this RN and requested that Dr. Ordoñez be consulted. This RN called office and spoke with ANDRIA Garcia. Notified her of consult. She states that doctor Smita does not come to hospital and will see pt outpt- IF pt had MRI and has completed therapy. This RN notified Dr English- who states pt could be transferred or could stay depending on hospitalists thoughts. Dr. Velarde notified and states that he would transfer if Dr. English thought this was necessary, but otherwise will keep pt and monitor as she is on atb's. Dr. English called and message left requesting his input. Addendum entered by Shital Ventura 08/28/18 10:52: Dr. English states that pt had pre-op appt with [facility] when cancer was found. He states that the pain she is experiencing might be coming from her hip. Dr English states he will let Dr. Chang know of consult himself. Addendum entered by Shital Ventura 08/28/18 10:42: This RN spoke with Dr. Rangel and was notified that he does not work on backs. This RN paged Dr. English (ordering doctor) to notify him of findings. Addendum entered by Shital Ventura 08/28/18 10:38: This RN spoke with Dr. Angulo- notified that does not do anything with the back and is not leather production artisan. Notified to call Dr. Rangel. This RN called pleating machine operator and paged Dr. Rangel. Original Note: Called Dr. Chang's office and notified that this RN needed to call his cell phone for consult. This RN given same. Dr. Chang advised that he is not leather production artisan. This RN apologized and called pleating machine operator to page leather production artisan jay jay ballesteros- Dr. Angulo.
[2018-08-28 11:48] LABS: Pathologist Review Reviewed
[2018-08-28 11:51] LABS: Pathologist Review Reviewed
--- NOTE | 2018-08-28 12:34 | CASEMGMT ---
RN CM SHIPPING CLERK PACKING CM to room to meet with patient for initial transition planning/care coordination assessment. RN SUSHILA introduced self and role at [facility]. Pt voices understanding and consents to assessment at this time. Pt resting in bed in no distress at this time. Daughter and friend in room visiting and pt agreeable to assessment with both of them present. Pt is A/O at this time and answers all questions appropriately. Care providers, pharmacy, and demographics verified/updated at this time. PCP: Anjali Tyler Specialists: Dr Quiles-oncology/hematology, Dr Rico in [place] [employer]--specializes in leukemia. Preferred Pharmacy: [facility] in [place] Insurance: [facility], [place] Prescription Benefit: [employer]. Living Will/HPOA: has a LW but does not have HCPOA. is interested in talking with SW to complete paperwork. PALLAVI Jackson, notified. LNOK: 2 daughters and 2 sons. Living Arrangements: Lives alone in one-story home w/a basement. was independent w/ADL's up until a few days ago when started having pain. has 2 sisters that live close that can help if needed. Transportation: Pt states drives self and states no transportation concerns at this time. States one of her family members will drive her home @ discharge. DME: has the following DME: cane, grab bars, hand held shower. Is interested in getting a shower chair and a walker. She was made aware shower chair is not covered by insurance but that this can be purchased at most drug stores. Pt states her sister has a walker that she doesn't use and she wants to talk to her about borrowing it from her instead of having it processed through insurance. Denies need for other DME at this time. Pt made aware to ask for CM if she decides she does want a walker through her insurance. Pt voices understanding. HHC/SNF: No history of either. PT/OT notes have been reviewed and pt made aware therapy is recommending additional therapy. Discussed options of HHC vs Out-pt therapy. Pt made aware [facility] guidelines are for pt to be homebound and pt states she is not homebound, stating that sometimes she likes to get out every day. Pt states is interested in Out-pt therapy but is not sure where she would want to go yet or when she'll want to start going d/t she is going to start getting daily injections @ oncology office. Pt states she would like a script for OP therapy so she can take it where/when she chooses. Pt wishes to return home and states has no concerns with going home at time of discharge, other than that she just wants her pain managed before going home. CM to follow for any further discharge planning/needs. Pt voices no further concerns/needs at this time. Advised pt to ask for CM if any further questions/concerns/needs arise. Voices understanding. Pt's goals @ discharge: Home w/Out-pt therapy and family support. Plan: Home w/Out-pt Therapy, family support, and discharge plans in place. Lizzie JAUREGUI RN CM
[2018-08-28] MEDS: VENETOCLAX 100 MG 400 MG PO (13:22)
[2018-08-28] MEDS: Triamterene 37.5MG/Hctz 25MG Capsule 1 CAP PO (13:25)
[2018-08-28] MEDS: Senna/Docusate Sodium 1 Tablet 2 TABLET PO (13:30)
[2018-08-28 13:40] VITALS: BP 155/90; PULSE 82; RESP 16; TEMP 37.1; O2SAT 100
--- NOTE | 2018-08-28 16:32 | CASEMGMT ---
Social Work Note SW received referral that pt would like information regarding HCPOA. SW will follow up with pt tomorrow regarding HCPOA. Blanche Lei COLLATOR, MATERIALS CLERK
[2018-08-28 19:51] VITALS: BP 146/73; PULSE 104; RESP 16; TEMP 37.6; O2SAT 100
[2018-08-29 02:42] VITALS: BP 130/56; PULSE 98; RESP 16; TEMP 37.3; O2SAT 97
[2018-08-29] MEDS: oxyCODONE 5 MG Tablet PO ×3 (02:50→15:28)
[2018-08-29 05:45] LABS: Hemoglobin 8.1 g/dL (12.0-15.0); Lymphocyte # 0.66 X10^3/ul (4.0); Lymphocyte % 29.5 % (19-41); Mean Corp Hgb Conc 33.8 g/dL (32-36); Mean Corpuscular Hgb 28.7 pg (27.0-32.0); Mean Corpuscular Volume 85.1 fL (81-99); Mean Platelet Vol. 10.2 fl (6.2-12.0); Monocyte# 0.57 X10^3/uL; Monocyte% 25.4 % (0-10); NRBC Flagged by Analyzer 0 % (0-5); Neutrophil % 44.7 % (47-70); POSITIVE COUNT YES; POSITIVE MORPHOLOGY YES; RBC Distribution Width CV 12.8 % (11.6-14.6); Red Blood Count 2.82 M/mm3 (4.2-5.4); White Blood Count 2.2 K/mm3 (4.4-11.0)
[2018-08-29] MEDS: cycloBENZAPRine HCl 10 MG Tablet PO ×2 (05:56→14:00)
[2018-08-29] MEDS: Morphine 2 MG/ML Syringe IV ×2 (05:56→17:30)
[2018-08-29 06:26] LABS: Differential Indicated SCAN CRITERIA MET
[2018-08-29 06:27] LABS: Platelet Count 17 K/mm3 (150-450)
[2018-08-29 06:46] LABS: Differential Comment SCANNED
[2018-08-29 06:47] LABS: Platelet Estimate MKD DEC (ADEQ)
[2018-08-29 08:02] VITALS: O2SAT 95
--- NOTE | 2018-08-29 08:08 | NURSING ---
per dr charles, discussion in room w/ dr adkins, family requesting pt be transferred to [facility] main campus
--- NOTE | 2018-08-29 08:49 | PCM.PROGNOTE ---
Patient Problems: Active and Suspected Problems Acute back pain (Acute) Septic joint (Suspected) Subjective: Chief complaint: Follow-up after admission for suspected septic arthritis of the bilateral L4-L5, L5-S1 face joints, leukopenia, neutropenia and thrombocytopenia. Patient seen and examined. No acute events overnight. She is still complaining of low back pain upon standing or ambulation. Pain is manageable at rest. Denies fever or chills. Her vital signs are stable. - Physical Exam General: Alert, Oriented x3, Cooperative, No apparent distress HEENT: Atraumatic, PERRLA, EOMI, Normocephalic Oral: Moist Mucosa, No Gingival or Mucosal Lesions/ Ulcerations Neck: Supple, No JVD, Negative Carotid Bruits, Trachea Midline, Thyroid Normal Size and Texture Lungs: Clear to auscultation, Normal air movement, No rhonchi, No wheeze, No rales, Diminished Cardiovascular: Regular rate, Regular Rhythm, Normal S1, Normal S2, PMI Normal Abdomen: Bowel Sounds Present, Soft, Non Tender, Non-Distended, No Hepato-splenomegaly Extremities: No clubbing, No cyanosis, No edema Skin: No rashes, No breakdown Lymphatic: No Cervical, Supraclavicular, or Inguinal Adenopathy Neurological: Cranial nerves II-XII grossly intact, Neuro grossly intact Psych/Mental Status: Normal Affect, Appropriate, Alert and oriented to time, place, person, mood and affect Vital Signs Temp Pulse Resp BP Pulse Ox 99.1 F 98 16 130/56 H 95 08/29/18 02:42 08/29/18 02:42 08/29/18 02:42 08/29/18 02:42 08/29/18 08:02 Oxygen Delivery Method Room Air Weight: 151 lb 10.848 oz Body Mass Index (BMI) 30.6 Intake and Output for Last 24 Hours 08/27/18 08/28/18 08/29/18 23:59 23:59 23:59 Intake Total 2317 / 2317 418 / 418 Balance 2317 / 2317 418 / 418 Laboratory Tests Past 24 Hrs 08/27/18 08/28/18 08/29/18 11:30 04:58 05:12 WBC 2.2 L RBC 2.82 L Hgb 8.1 L Hct 24.0 L MCV 85.1 MCH 28.7 MCHC 33.8 RDW Std Deviation 40.0 RDW Coeff of Delma 12.8 Plt Count 17 L* MPV 10.2 Immature Gran % (Auto) 0.400 Neut % (Auto) 44.7 L Lymph % (Auto) 29.5 [place] % (Auto) 25.4 H Eos % (Auto) 0.0 Baso % (Auto) 0.0 Absolute Neuts (auto) Not Reportable Absolute Nucleated RBC 0.00 Nucleated RBC % 0 Differential Comment SCANNED Diff Path Review Reviewed Reviewed June foll Platelet Estimate MKD DEC Medical Necessity - Tobacco Use Smoking Status: Never smoker Assessment/Plan All Active Problems Acute back pain (Acute) This is a 72 years old female patient presented to the emergency room because of low back pain, found to have findings suspicious for septic arthritis of the bilateral L4-L5, L5-S1 facet joints and also found to have leukopenia, neutropenia and thrombocytopenia. #1 low back pain/suspected septic arthritis of the bilateral L4-L5, L5-S1 facet joints: MRI lumbar spine reviewed. Remained on IV vancomycin and Zosyn empirically. She has been afebrile. Blood culture is pending. Her vital signs are stable. Infectious disease and oncology are on the case. According to Dr. barba, patient had a complaint of right hip pain several months ago and she is supposed to go for hip replacement but then she was diagnosed with this AML and this right hip pain was never followed. Plan: Continue same treatment, will do x-ray of the right hip. After discussion with infectious disease and oncology, decision was made to transfer patient to [facility] to be evaluated by spine surgery and also because her oncologist is also at the [facility]. 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 Today, her total WBC is 2200, absolute neutrophil count is very low, not reportable. Her total white blood cell count is getting better. #3 thrombocytopenia: Again, due to chemotherapy. Her platelet count today is 17,000, it was 29,000 yesterday. No active bleeding at this time. No indication for transfusion unless patient develops bleeding or platelet count less than 15,000. Plan to repeat CBC tomorrow morning. 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 Oncology consulted, plan as above. #5 hypertension: Blood pressure stable, continue Dyazide. #6 DVT prophylaxis: SCDs, no chemical prophylaxis because of severe thrombocytopenia. This note was generated with [employer] dictation software. It may contain incorrect words, spelling, and punctuation that were not noted in checking the note before signing. Code Visit Inpatient E&M: 17596 Subs Hosp L2
[2018-08-29 09:00] VITALS: BP 125/74; PULSE 109; RESP 18; TEMP 37.3; O2SAT 97
--- NOTE | 2018-08-29 09:03 | PCM.PROGNOTE ---
Patient Problems: Active and Suspected Problems Acute back pain (Acute) Septic joint (Suspected) Subjective: No improvement in pain--no pain while lying still, but movement causes severe pain. - Physical Exam Vital Signs Temp Pulse Resp BP Pulse Ox 99.1 F 98 16 130/56 H 95 08/29/18 02:42 08/29/18 02:42 08/29/18 02:42 08/29/18 02:42 08/29/18 08:02 Oxygen Delivery Method Room Air Weight: 68.8 kg Body Mass Index (BMI) 30.6 Intake and Output for Last 24 Hours 08/27/18 08/28/18 08/29/18 23:59 23:59 23:59 Intake Total 2316 / 2316 418 / 418 Balance 2316 418 / 418 Laboratory Tests Past 24 Hrs 08/27/18 08/28/18 08/29/18 11:30 04:58 05:12 WBC 2.2 L RBC 2.82 L Hgb 8.1 L Hct 24.0 L MCV 85.1 MCH 28.7 MCHC 33.8 RDW Std Deviation 40.0 RDW Coeff of Delma 12.8 Plt Count 17 L* MPV 10.2 Immature Gran % (Auto) 0.400 Neut % (Auto) 44.7 L Lymph % (Auto) 29.5 [place] % (Auto) 25.4 H Eos % (Auto) 0.0 Baso % (Auto) 0.0 Absolute Neuts (auto) Not Reportable Absolute Nucleated RBC 0.00 Nucleated RBC % 0 Differential Comment SCANNED Diff Path Review Reviewed Reviewed May foll Platelet Estimate MKD DEC Medical Necessity - Tobacco Use Smoking Status: Never smoker Assessment/Plan All Active Problems Acute back pain (Acute) 1) Lumbar facet joint infection. Assessment: -Working diagnosis. -Appreciated Dr. English's expert opinion. -Orthopedic consultation for this problem not available here. -Discussed transfer to [facility] with patient and daughter. Plan: -Continue broad spectrum antibiotics. -Plain films right hip. -Transfer when bed available. 2) AML. Assessment: -Most recent bone marrow biopsy showed ~50% reduction in myeloblasts. -Plan for allogeneic BMT with sister as donor. Plan: -Continue Venetoclax 400 mg PO daily. -All blood products should be irradiated. -Would transfuse RBCs for Hgb < 7.5 g/dL and plts if < 10-15,000.
[2018-08-29] MEDS: Acetaminophen 325 MG Tablet 650 MG PO (09:18)
[2018-08-29] MEDS: VENETOCLAX 100 MG 400 MG PO (09:21)
[2018-08-29] MEDS: Famotidine 20 MG Tablet PO (09:21)
[2018-08-29] MEDS: Acyclovir 200 MG Capsule 400 MG PO (09:21)
[2018-08-29] MEDS: Allopurinol 300 MG Tablet PO (09:22)
[2018-08-29] MEDS: Triamterene 37.5MG/Hctz 25MG Capsule 1 CAP PO (09:22)
[2018-08-29 09:45] LABS: Pathologist Review Reviewed
--- NOTE | 2018-08-29 11:57 | PCM.PN.ID ---
Patient Problems: Active and Suspected Problems Acute back pain (Acute) Septic joint (Suspected) Subjective: Back pain slightly improved today, no fever, no n/v/d, no mouth sores. - Physical Exam General: Alert, Cooperative, No apparent distress Lungs: Clear to auscultation, Normal air movement Cardiovascular: Regular rate, Regular Rhythm Abdomen: Soft, Non Tender, Non-Distended Skin: No rashes Vital Signs Temp Pulse Resp BP Pulse Ox 99.1 F 109 H 18 125/74 H 97 08/29/18 09:00 08/29/18 09:00 08/29/18 09:00 08/29/18 09:00 08/29/18 09:00 Oxygen Delivery Method Room Air Weight: 68.8 kg Body Mass Index (BMI) 30.6 Intake and Output for Last 24 Hours 08/27/18 08/28/18 08/29/18 23:59 23:59 23:59 Intake Total 2317 / 2317 418 / 418 Balance 2317 / 2317 418 / 418 Laboratory Tests Past 24 Hrs 08/29/18 05:12 WBC 2.2 L RBC 2.82 L Hgb 8.1 L Hct 24.0 L MCV 85.1 MCH 28.7 MCHC 33.8 RDW Std Deviation 40.0 RDW Coeff of Delma 12.8 Plt Count 17 L* MPV 10.2 Immature Gran % (Auto) 0.400 Neut % (Auto) 44.7 L Lymph % (Auto) 29.5 [place] % (Auto) 25.4 H Eos % (Auto) 0.0 Baso % (Auto) 0.0 Absolute Neuts (auto) Not Reportable Absolute Nucleated RBC 0.00 Nucleated RBC % 0 Differential Comment SCANNED Diff Path Review Reviewed Platelet Estimate MKD DEC Medical Necessity - Tobacco Use Smoking Status: Never smoker Route of nutrition/ use of supplements: [] Nutritional Intake: [] IV Site: [] Newman Catheter: [] - Assessment/Plan Antibiotics: [] Assessment/Plan: [] Active and Suspected Problems Acute back pain (Acute) Lower urinary tract symptoms (LUTS) (Acute) Septic joint (Acute) Neutropenic pt with AML, presenting with back pain. Given lack of fever and minimal pain on exam, I have relatively low suspicion for septic arthritis; though she may not be able to mount much of an inflammatory response given her low ANC. Oncology is following. She is on broad empiric coverage with vanc/zosyn. Bcx x2 drawn 08/28 but abx were started 08/27. Pain slightly improved. No spine surgery available here, plan is for transfer to [facility]. Will follow, d/w Dr. Velarde
--- NOTE | 2018-08-29 13:55 | RAD_ITS ---
STUDY: X-RAY - PELVIS AND RIGHT HIP REASON FOR EXAM: Female, 72 years old. Pain, decreased range of motion TECHNIQUE: 3 views of the pelvis and hip. COMPARISON: None. FINDINGS: There is a non-specific bowel gas pattern. Normal visualized soft tissue structures. There is narrowing with cortical sclerosis and osteophyte formation of the sacroiliac joint consistent with degenerative osteoarthritic changes. Normal bilateral superior and inferior pubic rami. Normal pubic symphysis. Normal bilateral ischial tuberosities. There are osteoarthritic changes of the femoral head with marginal osteophyte formation. Normal acetabulum. There is severe articular joint space narrowing of the hip. Subchondral sclerotic changes noted on the superior-lateral acetabulum and femoral head suggesting changes of AVN. Age consistent mild to moderate arthritic changes noted in the left hip. 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 Age consistent left hip and SI joint arthrosis No demonstrated fracture Electronically Signed: Pineda Hurley MD at 14:18 EDT , Service support ,
[2018-08-29 14:00] VITALS: BP 120/62; PULSE 97; RESP 18; TEMP 36.9; O2SAT 100
[2018-08-29 15:48] VITALS: PULSE 90
--- NOTE | 2018-08-29 15:55 | NURSING ---
report called to sonali juan @ [facility] [id number] bed 20
[2018-08-29] MEDS: Psyllium 1 PACKET PO (15:56)
[2018-08-29 16:25] LABS: Vancomycin, Trough Level 13.1 ug/mL (5.0-15.0)
--- NOTE | 2018-08-29 16:36 | DS.PCM_ITS ---
Discharge Date and Diagnosis Date of Admission: 08/27/18 Date of Discharge: 08/29/18 - Primary Discharge Diagnosis Active and Suspected Problems #1 suspected septic arthritis of the bilateral L4-L5, L5-S1 facet joints. #2 leukopenia/neutropenia. #3 severe thrombocytopenia. #4 acute myeloid leukemia. - Secondary Discharge Diagnosis Chronic Problems Hypertension (Chronic) Acute myeloid leukemia (Chronic) Pancytopenia (Chronic) Hospital Course and Treatment Imaging Results: 08/29/18 13:55 HIP, UNI W/ Pelvis 2-3 Views [RAD] Urgent Clinical Impression(s) from Imaging Studies Abdomen/Pelvis CT 08/27/18 10:50 IMPRESSION: No obstructive uropathy. No CT evidence of an acute inflammatory process, normal appendix visualized Retained stool noted in the colon No free intraperitoneal fluid, air, or suspicious adenopathy Electronically Signed: Pineda Hurley MD at 11:58 EDT , Service support , Lumbar Spine MRI 08/27/18 14:26 IMPRESSION: Irregularity of the left greater than right L4-5 and bilateral L5-S1 facet joints with small effusions. Mild edema in the immediately adjacent fat and posterior paraspinal muscles. Concerning for septic arthritis of these facet joints. No apparent abscess. Small abscesses might not be detected without IV contrast. Noninfectious acute on chronic facet arthropathy possible but less likely given the adjacent edema. No cauda equina compression. No other acute finding. Prominent degenerative changes described above. at 2050 Reported and signed by: Abiodun Thrasher MD Electronically Signed: Abiodun Thrasher, at 20:48 EDT Tel , Service support , ADDENDUM: 08/27/182116 IMPRESSION: Irregularity of the left greater than right L4-5 and bilateral L5-S1 facet joints with small effusions. Mild edema in the immediately adjacent fat and posterior paraspinal muscles. Concerning for septic arthritis of these facet joints. No apparent abscess. Small abscesses might not be detected without IV contrast. Noninfectious acute on chronic facet arthropathy possible but less likely given the adjacent edema. No cauda equina compression. No other acute finding. Prominent degenerative changes described above. at 0 Reported and signed by: Abiodun Thrasher MD N.B. : The above information has been verbally conveyed by Abiodun Thrasher to Roseline Navarro, charge nurse, [employer], on 08/27/2018 21:10:57 (ET). Electronically Signed: Abiodun Thrasher, at 20:48 EDT Tel , Service support , Thoracic Spine MRI 08/27/18 14:26 IMPRESSION: No acute findings. No compression or signal abnormality in the thoracic spinal cord. Chronic findings as above. 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 Age consistent left hip and SI joint arthrosis No demonstrated fracture Electronically Signed: Pineda Hurley MD at 14:18 EDT , Service support , Dr. Quiles, oncology. Dr. English, infectious disease. Operations: None Procedures: None Summary of Care Provided: The patient is a 72 year old F admitted because of low back pain and she was found to have findings suspicious for septic arthritis of the bilateral L4-L5, 5 S1 facet joints on MRI lumbar spine and also found to have leukopenia, neutropenia and severe thrombocytopenia. The patient was recently diagnosed with AML few months ago after she had bone marrow biopsy from the iliac crest and she was started on Vidaza and venetoclax and she has been following with Dr. Quiles as outpatient. She came to the emergency room because of back pain that has been progressive over the last several weeks. MRI lumbar spine done and revealed irregularity of the left greater than the right L4-L5 and bilateral L5- S1 facet jointS with small effusions and mild edema concerning for septic arthritis. There was no abscess identified. Also, she had a thoracic spine MRI that showed no acute findings. Patient was started on IV vancomycin and Zosyn. She was found to have leukopenia, neutropenia and severe thrombocytopenia which was attributed to her chemotherapy agents. Patient remained afebrile throughout admission. She has been afebrile throughout admission. Her vital signs are stable. Blood culture showed no growth in 48 hours. Infectious disease consulted and stated that suspicious of septic arthritis of the lumbar spine is low at this time. Infectious disease recommended evaluation by orthopedic surgery. Multiple orthopedic surgeons were contacted and they mentioned that the are not specialized and back problems. After discussion with oncology and infectious disease, we decided to transfer the patient to [facility] to be evaluated by spine surgery and also because her main oncologist is at the [facility]. Patient transferred to [facility] for evaluation by spine surgery. - Physical Exam General: Alert, Oriented x3, Cooperative, No apparent distress HEENT: Atraumatic, PERRLA, EOMI, Normocephalic Oral: Moist Mucosa, No Gingival or Mucosal Lesions/ Ulcerations Neck: Supple, No JVD, Negative Carotid Bruits, Trachea Midline, Thyroid Normal Size and Texture Lungs: Clear to auscultation, Normal air movement, No rhonchi, No wheeze, No rales, Diminished Cardiovascular: Regular rate, Regular Rhythm, Normal S1, Normal S2 Abdomen: Bowel Sounds Present, Soft, Non Tender, Non-Distended, No Hepato- splenomegaly Extremities: No clubbing, No cyanosis, No edema Skin: No rashes, No breakdown Lymphatic: No Cervical, Supraclavicular, or Inguinal Adenopathy Neurological: Cranial nerves II-XII grossly intact, Neuro grossly intact Psych/Mental Status: Normal Affect, Appropriate Vital Signs Temp Pulse Resp BP Pulse Ox 98.4 F 90 18 120/62 100 08/29/18 14:00 08/29/18 15:48 08/29/18 14:00 08/29/18 14:00 08/29/18 14:00 Oxygen Delivery Method Room Air Weight: 151 lb 10.848 oz Body Mass Index (BMI) 30.6 Intake and Output for Last 24 Hours 08/27/18 08/28/18 08/29/18 23:59 23:59 23:59 Intake Total 7 / 2316 1232 / 1232 Output Total 600 / 600 Balance 2316 632 / 632 Laboratory Tests Past 24 Hrs 08/29/18 08/29/18 05:12 15:05 WBC 2.2 L RBC 2.82 L Hgb 8.1 L Hct 24.0 L MCV 85.1 MCH 28.7 MCHC 33.8 RDW Std Deviation 40.0 RDW Coeff of Delma 12.8 Plt Count 17 L* MPV 10.2 Immature Gran % (Auto) 0.400 Neut % (Auto) 44.7 L Lymph % (Auto) 29.5 [place] % (Auto) 25.4 H Eos % (Auto) 0.0 Baso % (Auto) 0.0 Absolute Neuts (auto) Not Reportable Absolute Nucleated RBC 0.00 Nucleated RBC % 0 Differential Comment SCANNED Diff Path Review Reviewed Platelet Estimate MKD DEC Vancomycin Trough 13.1 Home Medications: Medications to take at Discharge Triamterene/Hydrochlorothiazid [Dyazide 37.5-25 Capsule] 1 cap PO DAILY 03/27/18 Acyclovir 400 mg PO BID 06/05/18 Azacitidine [Vidaza] 100 mg SC UD 06/05/18 Potassium Chloride [K-Dur] 20 meq PO BID 06/05/18 Ondansetron [Zofran] 8 mg PO Q8H PRN PRN 06/29/18 Carisoprodol [Soma] 350 mg PO 4X/DAY PRN PRN 08/24/18 traMADol [Ultram] 50 - 100 mg PO Q6H PRN PRN 08/24/18 Allopurinol [Zyloprim] 300 mg PO DAILY 08/27/18 Venetoclax [Venclexta] 400 mg PO DAILY 08/27/18 levoFLOXacin tablet [Levaquin tablet] 500 mg PO DAILY 08/27/18 predniSONE tablet See Taper PO DAILY 08/27/18 Primary Care Physician: Anjali Tyler MD [Primary Care Provider] - Disposition: Acute care Hospital Minutes spent on discharge:: 33 Patient Condition:: Stable Medical Necessity - Tobacco Use Smoking Status: Never smoker Meaningful Use Info Meaningful Use Diagnoses (Choose all that apply): None applicable Code Visit Inpatient E&M: 28246 Disch Hosp
[2018-08-29] MEDS: 0.9% NaCl Peripheral Flush Adult/Peds IV ×2 (17:01→17:30)
--- NOTE | 2018-08-30 16:01 | CASEMGMT ---
MARKO CONTI DC PHONE CALL DC DATE: 08/29/18 DC Disposition: Home Diagnosis on Discharge: HTN, back pain LACE/STRATA: 10/09 Attempted call. Message left on home phone, had name identifier. Call back information given if questions re: prescriptions, instructions or f/u. A.Pau BSN RN ACM
== END 2018-08-29 18:30 | disposition short-term general hospital (02) | DRG 552 ==
LOC: ED 11:07 → MS3 13:29
PROVIDERS: Family Medicine; Admitting Provider Internal Medicine; Emergency Provider Emergency Medicine; Visit Provider Hospitalist
DX: M46.56 Other infective spondylopathies, lumbar region (principal); C92.00 Acute myeloblastic leukemia, not having achieved remission; M46.57 Other infective spondylopathies, lumbosacral region; D69.59 Other secondary thrombocytopenia; T45.1X5A Adverse effect of antineoplastic and immunosuppressive drugs, initial encounter; D70.1 Agranulocytosis secondary to cancer chemotherapy; I10 Essential (primary) hypertension
CPT/HCPCS: 36415; 72146; 72148; 73502; 74176; 80048; 80053; 80202; 81001; 82550; 83605; 83735; 84100; 84443; 85025; 87040; 97116; 97162; 97530; 97802; 99285; J7030; J7040; J7050; A4216; J2405

== ENCOUNTER → 2018-09-19 08:02 | Outpatient (CLI) | payer MEDICARE, BC, SELFPAY ==
[2018-08-27 14:30] VITALS: BMI 30.6
[2018-09-19 08:27] VITALS: BP 119/66; PULSE 105; RESP 16; TEMP 36.6; O2SAT 96; BMI 31.1
[2018-09-19 08:57] VITALS: BP 108/59; PULSE 97; RESP 16; TEMP 36.6; O2SAT 96
[2018-09-19 10:06] VITALS: BP 118/67; PULSE 89; RESP 16; TEMP 36.4; O2SAT 95
== END ==
PROVIDERS: Referring Provider Internal Medicine Hematology & Oncology; Visit Provider Internal Medicine Hematology & Oncology
DX: Z51.89 Encounter for other specified aftercare (principal); C92.00 Acute myeloblastic leukemia, not having achieved remission; D69.6 Thrombocytopenia, unspecified
CPT/HCPCS: 36430; 86644; 86900; 86901; 86965; J7040; P9037; A4216

== ENCOUNTER 2018-09-22 08:40 | Outpatient (CLI) | payer MEDICARE, BC, SELFPAY ==
[2018-09-19 08:27] VITALS: BMI 31.1
[2018-09-22] VITALS (8 sets, daily range): BP systolic 127–148; BP diastolic 63–78; PULSE 102–111; RESP 16–18; TEMP 37–37.7; O2SAT 96–99; BMI 30.1
--- NOTE | 2018-09-22 09:48 | NURSING ---
Addendum entered by Damir Lugo 09/22/18 14:10: Patient's daughter at bedside and is aware of same. Coban dressing applied to IV site right arm per daughter's request. Original Note: Patient voiced complaints of non-radiating, centralized chest pain that became more epigastric discomfort after receiving 2ml of blood transfusion. Patient denied shortness of breath or pain in her arms/jaw. No distress noted. Vitals stable. Physician for Dr. Etta chan.
[2018-09-22] MEDS: 0.9% NaCl Peripheral Flush Adult/Peds IV (10:01)
--- NOTE | 2018-09-22 20:55 | NURSING ---
PATIENT LUNGS CLEAR, EDUCATED ABOUT SIGNS OF REACTION. DENIES ANY SOB OR PAIN. PATIENT BEING DISCHARGED AT THIS TIME.
== END 2018-09-22 20:50 | disposition home or self-care (01) ==
LOC: MEDOUTP 08:41 → PCU 08:42
PROVIDERS: Referring Provider Internal Medicine Hematology & Oncology; Visit Provider Internal Medicine Hematology & Oncology
DX: Z51.89 Encounter for other specified aftercare (principal); C92.00 Acute myeloblastic leukemia, not having achieved remission
CPT/HCPCS: 36430; 86850; 86900; 86901; 86920; 86922; J7040; P9016; P9040; A4216

== ENCOUNTER 2018-09-22 10:29 | Emergency (ER) | payer MEDICARE, BC, SELFPAY ==
[2018-09-19 08:27] VITALS: BMI 31.1
[2018-09-22 10:31] VITALS: BP 161/88; PULSE 108; RESP 20; TEMP 37.3; O2SAT 97; BMI 30.1
[2018-09-22 10:38] VITALS: TEMP 37.3
--- NOTE | 2018-09-22 10:57 | ED.VIS.GEN ---
History of Present Illness Chief Complaint: Chest Pain Informant: Patient Onset: Today Context: Sudden Onset Narrative: Patient presents to the ED with sudden onset of chest pain prior to arrival. She has a history of AML and was receiving a blood transfusion in the PCU. After receiving approximately 2 mL's of blood, she began to experience chest heaviness. She states it lasted for 15 minutes. Blood was discontinued after receiving the 2 mL of blood and she states that her chest pain did resolve spontaneously. She denies any associated fever, chills, shortness of breath, nausea, or vomiting. She has received numerous blood transfusions in the past and is never had an incident similar to this. Past Medical History - Allergies and Home Meds Allergies/Adverse Reactions: Allergies vancomycin Allergy (Verified 09/22/18 10:31) Rash Primary Care Physician: Anjali Tyler MD [Primary Care Provider] - Jean Paul Quiles DO [STAFF PHYSICIAN] - Smoking Status: Never smoker - Family History Paternal Family History: Reports: No pertinent history Review of Systems General: Denies: Chills, Fever, Sweats Eyes: Denies: Visual changes - bilaterally, Diplopia ENT: Denies: Rhinorrhea, Sore throat Cardiovascular: Reports: Chest pain. Denies: Palpitations Respiratory: Denies: Dyspnea, Cough, Dyspnea on exertion Gastrointestinal: Denies: Abdominal pain, Nausea, Vomiting, Diarrhea, Melena, Hematochezia Genitourinary: Denies: Dysuria, Hematuria, Frequency Musculoskeletal: Denies: Back pain, Extremity Pain Skin: Denies: Rash, Wounds Neurological: Denies: Headache, Weakness, Numbness Physical Exam Vital Signs/Narrative: Vital Signs Temp Pulse Resp BP Pulse Ox 09/22/18 10:38 99.1 F 09/22/18 10:31 99.1 F 108 H 20 H 161/88 H 97 Inital Vital Signs reviewed: Yes General: Well nourished, Well developed, No Acute Distress Head: Normocephalic, Atraumatic Eyes: Perrl, EOMI ENT: Moist mucous membranes, No rhinorrhea Neck: Supple, Nontender Cardiovascular: Regular rhythm, No murmurs, Tachycardia Respiratory: No distress, CTA bilaterally, Chest nontender Abdomen: Soft, Nontender, Nondistended, Normal bowel sounds Back: Nontender, Normal Inspection Extremities: Nontender, No edema Skin: Normal color, No rash Neurological: Alert, Oriented x3, Cranial nerves II-XII grossly intact, Normal Strength, Normal Sensation Psychological: Normal affect, Normal Mood Diagnostic/Tx/Re-eval - EKG Initial EKG Interpretation: Sinus Tachycardia, - - Medical Decision Making Presents to the ED with chest pain after receiving 2 mL of packed red blood cell infusion. Pain lasted for 15 minutes and resolved prior to presentation in the ER. She is mildly tachycardic which is seen on EKG. CBC indicates low white blood cell count and platelets which is not new for the patient. Her hemoglobin is 8. BMP and troponin are unremarkable. Chest x-ray shows no acute abnormality. Given patient's tachycardia and history of AML, CT of the chest was obtained which shows no evidence of pulmonary embolism. It did note a 5 mm right lower lung nodule, which the patient is aware of. I did discuss the patient's case with on-call oncologist, Dr. Shea, who agrees that it is very unlikely that patient's symptoms were due to transfusion reaction. He does feel patient is able to receive her transfusion as scheduled today given that her work-up here is negative. Patient and her daughter were agreeable to this plan. Patient was discharged in stable condition and will receive her scheduled infusion of packed red blood cells in the PCU. Impression: Chest pain of unclear etiology. History of AML. Pulmonary nodule. Condition: Stable to PCU for scheduled transfusion ED Disposition - Plan for ED Patient: Disposition: Home or Assisted Living Diagnosis: Chest pain Instructions: CHEST PAIN, Uncertain Cause Referrals: Anjali Tyler MD [Primary Care Provider] - Jean Paul Quiles DO [STAFF PHYSICIAN] -
--- NOTE | 2018-09-22 11:00 | RAD_ITS ---
STUDY: X-RAY CHEST REASON FOR EXAM: Female, 72 years old. Chest pain TECHNIQUE: AP COMPARISON: 03/27/2018 FINDINGS: Mild bibasilar atelectasis but no airspace consolidation. The lungs are underexpanded. EKG leads project over the chest. There is no demonstrated pleural abnormality. Normal size heart. Normal mediastinum and harley. Normal visualized pulmonary arteries. Normal visualized aortic arch and descending thoracic aorta. Normal visualized thoracic spine. Normal visualized ribs, clavicles, and shoulders. There is no demonstrated abnormality of the visualized soft tissue structures of the upper abdomen. RAD/Chest 1 View (Portable) IMPRESSION: Mild bibasilar atelectasis. No airspace consolidation. Electronically Signed: Maxx Arevalo MD (Brooks) at 11:24 EDT , Service support ,
[2018-09-22 11:08] VITALS: O2SAT 100
[2018-09-22 11:10] LABS: Absolute Lymphocyte Count 0.44 X10^3/uL (0.83-4.51); Hematocrit 23.3 % (37-47); Lymphocyte # 0.44 X10^3/ul (4.0); Lymphocyte % 60.3 % (19-41); Mean Corp Hgb Conc 34.3 g/dL (32-36); Mean Corpuscular Hgb 30.8 pg (27.0-32.0); Mean Corpuscular Volume 89.6 fL (81-99); Mean Platelet Vol. 10.5 fl (6.2-12.0); Monocyte# 0.28 X10^3/uL; Monocyte% 38.4 % (0-10); NRBC Flagged by Analyzer 0 % (0-5); Neutrophil # 0.01 X10^3/uL (2.7-7.7); Neutrophil % 1.3 % (47-70); POSITIVE COUNT YES; POSITIVE DIFFERENTIAL YES; POSITIVE MORPHOLOGY YES; Platelet Count 18 K/mm3 (150-450); RBC Distribution Width SD 42.9 fl (35.1-43.9)
[2018-09-22 11:15] LABS: Differential Indicated SCAN CRITERIA MET; White Blood Count 0.7 K/mm3 (4.4-11.0)
--- NOTE | 2018-09-22 11:15 | ED.RN ---
LAB CALLS WITH CRITICAL RESULT, WBC 0.7, PLATELET COUNT 18.0, SHON ARSHAD MADE AWARE.
[2018-09-22 11:34] LABS: Anion Gap 7 (5-15); BUN 21 mg/dL (7-18); BUN/Creat Ratio 24.4 RATIO (10-20); Calcium,Total 8.8 mg/dL (8.5-10.1); Chloride 94 mmol/L (98-107); Creatinine, Serum 0.86 mg/dL (0.55-1.02); EST Glomerular Filtration Rate 69 mL/min (>60); Est Glom Filt Rate - Afr Amer 83 mL/min (>60); Estimated Creatinine Clearance 63.09 ml/min; Glucose 126 mg/dL (74-106); Potassium 3.9 mmol/L (3.5-5.1); Sodium Level 131 mmol/L (136-145)
[2018-09-22 11:48] LABS: Differential Comment SCANNED; Platelet Estimate MKD DEC (ADEQ)
--- NOTE | 2018-09-22 11:53 | CT_ITS ---
STUDY: CTA CHEST REASON FOR EXAM: Female, 72 years old. Chest pain while getting blood transfusion today RADIATION DOSAGE (If Supplied By Facility): CTDIvol = ( 8.35 ) mGy, DLP = ( 293.75 ) mGycm TECHNIQUE: The examination was performed with the intravenous administration of 75mL IV Isovue 370. Post-processing of the angiographic images was performed, with multiplanar reformation and 3D reconstruction. Individualized dose optimization techniques were used for this CT. COMPARISON: None. FINDINGS: Normal enhancement of the main pulmonary artery and right and left pulmonary arteries. Normal enhancement of the bilateral peripheral pulmonary arteries. There is no demonstrated pulmonary embolism. Normal thoracic aorta and visualized great vessels. There is no demonstrated aortic dissection. Normal heart and pericardium. Normal mediastinum. Normal hilar regions. Normal visualized trachea and bronchi. The lungs are well expanded. There are bandlike parenchymal changes most consistent with atelectasis of the bilateral lungs. There is a well-defined 5 mm nodule which is not calcified in the right lower lobe on image 72. Normal pleura. Normal chest wall structures. There are degenerative changes of thoracic spine. Normal visualized upper abdomen. CT/CTA Chest W/WO Contrast IMPRESSION: No central or segmental pulmonary embolus. 5 mm right lower lobe pulmonary nodule. Follow-up per Fleischner Society recommendations. Electronically Signed: Maxx Arevalo MD (Brooks) at 13:04 EDT , Service support ,
[2018-09-22 11:58] VITALS: BP 143/77; PULSE 106; RESP 20; TEMP 37.2; O2SAT 97
[2018-09-22 12:34] VITALS: BP 139/72; PULSE 104; RESP 18; O2SAT 98
[2018-09-22 14:14] VITALS: BP 137/77; PULSE 106; RESP 18; O2SAT 99
[2018-09-24 12:25] LABS: Pathologist Review Reviewed
== END 2018-09-22 14:25 | disposition home or self-care (01) ==
PROVIDERS: Emergency Provider Physician Assistant; Referring Provider Internal Medicine Hematology & Oncology
DX: R07.9 Chest pain, unspecified (principal); Z51.81 Encounter for therapeutic drug level monitoring; C92.00 Acute myeloblastic leukemia, not having achieved remission; R00.0 Tachycardia, unspecified; R91.1 Solitary pulmonary nodule; Z79.899 Other long term (current) drug therapy
CPT/HCPCS: 36430; 71045; 71275; 80048; 84484; 85025; 86850; 86900; 86901; 86920; 86922; 93005; 99285; J7040; P9016; P9040; Q9967; A4216

== ENCOUNTER → 2018-09-25 08:25 | Outpatient (CLI) | payer MEDICARE, BC, SELFPAY ==
[2018-09-22 10:31] VITALS: BMI 30.1
[2018-09-25 09:15] VITALS: BP 123/75; PULSE 106; RESP 16; TEMP 36.6; BMI 30.1
[2018-09-25 09:46] VITALS: BP 126/65; PULSE 100; RESP 16; TEMP 36.7; O2SAT 98
[2018-09-25 10:19] VITALS: BP 130/66; PULSE 99; TEMP 36.3
== END ==
PROVIDERS: Referring Provider Internal Medicine Hematology & Oncology; Visit Provider Internal Medicine Hematology & Oncology
DX: C92.00 Acute myeloblastic leukemia, not having achieved remission (principal)
CPT/HCPCS: 36430; 86900; 86901; 86965; J7040; P9037

== ENCOUNTER → 2018-10-02 08:54 | Outpatient (CLI) | payer MEDICARE, BC, SELFPAY ==
[2018-09-25 09:15] VITALS: BMI 30.1
[2018-10-02 09:17] VITALS: BP 146/74; PULSE 116; RESP 16; TEMP 36.6; O2SAT 100; BMI 29.7
[2018-10-02 09:54] VITALS: BP 113/63; PULSE 102; RESP 16; TEMP 36.5; O2SAT 99
[2018-10-02 10:21] VITALS: BP 114/57; PULSE 98; RESP 16; TEMP 36.6
== END ==
PROVIDERS: Referring Provider Internal Medicine Hematology & Oncology; Visit Provider Internal Medicine Hematology & Oncology
DX: C92.00 Acute myeloblastic leukemia, not having achieved remission (principal)
CPT/HCPCS: 36430; 86900; 86901; 86965; J7040; P9037; A4216

== ENCOUNTER 2018-10-04 08:43 | Outpatient (RCR) | payer MEDICARE, BC, SELFPAY ==
[2018-10-02 09:17] VITALS: BMI 29.7
[2018-10-04 08:57] VITALS: BP 134/70; PULSE 110; RESP 20; TEMP 36.6; BMI 30.2
--- NOTE | 2018-10-04 16:50 | PCM.WC.HP ---
(1) Swelling of right upper extremity Status: Chronic Current Visit: Yes Code(s): M79.89 - Other specified soft tissue disorders History of Present Illness Date of Service: 10/05/18 Chief Complaint: Right upper extremity swelling and bruising History of Wound: Ms. Hodge is a 72-year-old who presented here due to right upper extremity swelling and bruising/blisters. Said to have been after venipuncture/reaction to vancomycin. She has received care by her daughter who is an RN and who has applied Bactroban. Blistering did improve. Still has a lot of bruising noted and swelling. Denies any significant pain. Also denies chills, fever otherwise feeling of unwell. Past Medical History Past Medical History: Chronic Problems Swelling of right upper extremity (Chronic) Hypertension (Chronic) Acute myeloid leukemia (Chronic) Pancytopenia (Chronic) Allergies/Adverse Reactions: Allergies vancomycin Allergy (Verified 10/04/18 09:12) Rash Home Medications: Ambulatory Orders Medication Instructions Recorded Triamterene/Hydrochlorothiazid 1 cap PO DAILY 03/27/18 [Dyazide 37.5-25 Capsule] Acyclovir 400 mg PO BID 06/05/18 Potassium Chloride [K-Dur] 20 meq PO BID 06/05/18 Ondansetron [Zofran] 8 mg PO Q8H PRN PRN 06/29/18 traMADol [Ultram] 50 - 100 mg PO Q6H PRN PRN 08/24/18 Allopurinol [Zyloprim] 300 mg PO DAILY 08/27/18 Venetoclax [Venclexta] 400 mg PO DAILY 08/27/18 levoFLOXacin tablet [Levaquin 500 mg PO DAILY 08/27/18 tablet] proMETHazine tablet [Phenergan 25 mg PO Q6H PRN PRN 09/22/18 tablet] - Family History Paternal No pertinent history Smoking Status: Never smoker Review of Systems Constitutional: Denies: Anorexia, Chills, Fever Eyes: Denies: Blurred vision, Redness HEENT: Denies: Difficulty Swallowing Cardiovascular: Denies: Chest Pain, Chest Pressure Respiratory: Denies: Cough, Hemoptysis Gastrointestinal: Denies: Abdominal Pain, Hematemesis Skin: Denies: Jaundice - Physical Exam Vital Signs Temp Pulse Resp BP 98 F 110 H 20 H 134/70 H 10/04/18 08:57 08/29/19 08:57 10/04/18 08:57 10/04/18 08:57 General: Alert, Oriented x3, Cooperative, No apparent distress HEENT: Atraumatic, Normocephalic Oral: Moist Mucosa Neck: Supple Lungs: Normal air movement Cardiovascular: Regular rate, Regular Rhythm, Normal S1, Normal S2 Abdomen: Soft, Non Tender Extremities: No cyanosis, Edema Wound Measurements and Assessment WC - Nurse 1 - General Ulcer Measurement Start: 10/04/18 08:56 Freq: Status: Active Protocol: Activity Type Activity Date Activity User E-Sign Co-Sign Detail Recorded Client Recorded Date Recorded By Document 10/04/18 09:11 DL [id number] 10/04/18 09:12 DL 10/04/18 09:11 Wound Center Nurse 1 [Ulcer Assessment] R Arm -Current Size (cm) - Length 0 -Current Size (cm) - Width 0 -Current Size (cm) - Depth 0 -Total Square Cm 0 -Photo Taken No -Exudate Amt None Present -Granulation Amt None Present (0 %) -Granulation Quality N/A -Color (Adelina-wound Skin Appearance) Ecchymosis -Temperature (Adelina-wound Skin No Abnormality Appearance) (Pt Warm) -Tenderness on Palpation (Adelina-wound No Skin Appearance) WC - Nurse 2 - General Ulcer CM Notes Start: 10/04/18 08:56 Freq: Status: Active Protocol: Activity Type Activity Date Activity User E-Sign Co-Sign Detail Recorded Client Recorded Date Recorded By Document 10/04/18 09:31 MW [id number] 10/04/18 09:38 MW 10/04/18 09:31 Wound Center Nurse 2 [Procedure/Treatment] -Time 09:32 -Correct Patient Yes -Correct Side, Site, Position Yes -Correct Procedure Yes -Procedure Performed No -Post Debridement Size (cm) - Length 0 -Post Debridement Size (cm) - Width 0 -Post Debridement Size (cm) - Depth 0 -Total Square Cm 0 -Wound/Ulcer Outcome Healed- Epithelialized [See Physician Procedure note for Specifics] Pain Scale: 0-10 Numeric [Pain] -Is Patient Pain Free? Yes Musculoskeletal: No Muscle Wasting Neurological: Cranial nerves II-XII grossly intact Psych/Mental Status: Normal Affect Debridement Note Post-Debridement Measurements/Treatment WC - Nurse 2 - General Ulcer CM Notes Start: 10/04/18 08:56 Freq: Status: Active Protocol: Activity Type Activity Date Activity User E-Sign Co-Sign Detail Recorded Client Recorded Date Recorded By Document 10/04/18 09:31 MW [id number] 10/04/18 09:38 MW 10/04/18 09:31 Wound Center Nurse 2 R Arm -Time 09:32 -Correct Patient Yes -Correct Side, Site, Position Yes -Correct Procedure Yes -Procedure Performed No -Post Debridement Size (cm) - Length 0 -Post Debridement Size (cm) - Width 0 -Post Debridement Size (cm) - Depth 0 -Total Square Cm 0 -Wound/Ulcer Outcome Healed- Epithelialized Pain Scale: 0-10 Numeric Is Patient Pain Free? Yes No debridement was completed today Assessment/Plan Active Problems Swelling of right upper extremity (Chronic) Assessment: Swelling and bruising of right upper extremity status post thrombophlebitis/vancomycin reaction. Plan: She appears to have made significant improvement. Pictures reviewed. Did have blistering and ulcers. These have all resolved. Bruising/erythema still present. Also has right upper extremity swelling. Apply Aquaphor daily to twice daily to bruised areas. Has been using Tubigrip for edema management however, this is said to cause some discomfort. Harinder wraps recommended. Elevate upper extremity. No indication for return to the wound center as there is no open wound/ulcer. May continue follow-up with primary care physician/oncology. All the questions were answered and they were advised to call with any further questions or concerns. Discharge from the wound center. This note was generated with [employer] dictation software. It may contain incorrect words, spelling, and punctuation that were not noted in checking the note before signing.
== END 2018-10-06 23:59 ==
LOC: WC 08:43
PROVIDERS: Visit Provider Internal Medicine
DX: S40.021A Contusion of right upper arm, initial encounter (principal); X58.XXXA Exposure to other specified factors, initial encounter; I10 Essential (primary) hypertension; C92.00 Acute myeloblastic leukemia, not having achieved remission; Z79.899 Other long term (current) drug therapy; M79.89 Other specified soft tissue disorders
CPT/HCPCS: 99213; G0463

== ENCOUNTER → 2018-10-05 07:57 | Outpatient (CLI) | payer MEDICARE, BC, SELFPAY ==
[2018-10-04 08:57] VITALS: BMI 30.2
[2018-10-05] VITALS (9 sets, daily range): BP systolic 85–132; BP diastolic 51–63; PULSE 76–111; RESP 16–18; TEMP 36.4–37.1; O2SAT 94–98; BMI 30.1
== END ==
PROVIDERS: Referring Provider Internal Medicine Hematology & Oncology; Visit Provider Internal Medicine Hematology & Oncology
DX: C92.00 Acute myeloblastic leukemia, not having achieved remission (principal); S40.021A Contusion of right upper arm, initial encounter; X58.XXXA Exposure to other specified factors, initial encounter; M79.89 Other specified soft tissue disorders; I10 Essential (primary) hypertension; Z79.899 Other long term (current) drug therapy
CPT/HCPCS: 36430; 86644; 86850; 86900; 86901; 86920; 86922; 86965; 99213; J7040; P9037; P9040; A4216; G0463

== ENCOUNTER → 2018-10-30 07:47 | Outpatient (CLI) | payer MEDICARE, BC, SELFPAY ==
[2018-10-05 08:36] VITALS: BMI 30.1
[2018-10-30] VITALS (7 sets, daily range): BP systolic 107–131; BP diastolic 51–74; PULSE 81–94; RESP 16; TEMP 36.3–36.7; O2SAT 100; BMI 30.1
== END ==
PROVIDERS: Referring Provider Internal Medicine Hematology & Oncology; Visit Provider Internal Medicine Hematology & Oncology
DX: C92.00 Acute myeloblastic leukemia, not having achieved remission (principal)
CPT/HCPCS: 36430; 86850; 86900; 86901; 86920; 86922; J7040; P9040; A4216

== ENCOUNTER → 2018-12-11 07:54 | Outpatient (CLI) | payer MEDICARE, BC, SELFPAY ==
[2018-10-30 08:16] VITALS: BMI 30.1
[2018-12-11] VITALS (7 sets, daily range): BP systolic 124–149; BP diastolic 59–78; PULSE 73–98; RESP 16–18; TEMP 36–36.3; O2SAT 98–100; BMI 30.2
== END ==
PROVIDERS: Referring Provider Internal Medicine Hematology & Oncology; Visit Provider Internal Medicine Hematology & Oncology
DX: C92.00 Acute myeloblastic leukemia, not having achieved remission (principal)
CPT/HCPCS: 36430; 86850; 86900; 86901; 86920; 86922; J7040; P9040; A4216

== ENCOUNTER → 2019-01-23 08:54 | Outpatient (CLI) | payer MEDICARE, BC, SELFPAY ==
[2018-12-11 08:03] VITALS: BMI 30.2
[2019-01-23 09:13] VITALS: BP 135/65; PULSE 87; RESP 16; TEMP 36.1; O2SAT 100; BMI 30.2
[2019-01-23 09:59] VITALS: BP 118/64; PULSE 86; RESP 16; TEMP 36.2; O2SAT 98
[2019-01-23 10:59] VITALS: BP 122/67; PULSE 77; RESP 18; TEMP 35.9; O2SAT 99
[2019-01-23 11:42] VITALS: BP 136/71; PULSE 77; RESP 16; TEMP 36.2
[2019-01-23 12:16] VITALS: BP 136/71; PULSE 78; RESP 16; TEMP 36.2
[2019-01-23 13:41] VITALS: BP 139/64; PULSE 86; RESP 16; TEMP 36.4; O2SAT 100
== END ==
PROVIDERS: Referring Provider Internal Medicine Hematology & Oncology; Visit Provider Internal Medicine Hematology & Oncology
DX: C92.00 Acute myeloblastic leukemia, not having achieved remission (principal)
CPT/HCPCS: 36430; 86850; 86900; 86901; 86920; 86922; J7040; P9016; A4216

== ENCOUNTER → 2019-03-05 07:56 | Outpatient (CLI) | payer MEDICARE, BC, SELFPAY ==
[2019-01-23 09:13] VITALS: BMI 30.2
[2019-03-05] VITALS (7 sets, daily range): BP systolic 115–156; BP diastolic 60–77; PULSE 69–92; RESP 14–18; TEMP 36.7–37.1; O2SAT 98–100; BMI 31.1
== END ==
LOC: MEDOUTP 07:56
PROVIDERS: Referring Provider Internal Medicine Hematology & Oncology; Visit Provider Internal Medicine Hematology & Oncology
DX: C92.00 Acute myeloblastic leukemia, not having achieved remission (principal)
CPT/HCPCS: 36430; 86850; 86900; 86901; 86920; 86922; J7040; P9016; A4216

== ENCOUNTER → 2019-04-30 07:52 | Outpatient (CLI) | payer MEDICARE, BC, SELFPAY ==
[2019-03-05 08:05] VITALS: BMI 31.1
[2019-04-30] VITALS (7 sets, daily range): BP systolic 118–149; BP diastolic 62–68; PULSE 79–111; RESP 16–18; TEMP 35.8–36.9; O2SAT 96–99; BMI 31.1
[2019-04-30] MEDS: 0.9% NaCl Peripheral Flush Adult/Peds IV ×4 (08:03→13:18)
[2019-04-30] MEDS: Hydrocortisone Sod Succinate 100 MG/2 ML Vial IV (08:33)
== END ==
PROVIDERS: Referring Provider Internal Medicine Hematology & Oncology; Visit Provider Internal Medicine Hematology & Oncology
DX: C92.00 Acute myeloblastic leukemia, not having achieved remission (principal)
CPT/HCPCS: 36430; 86850; 86900; 86901; 86920; 86922; J7040; P9040; A4216

== ENCOUNTER → 2019-11-26 13:31 | Outpatient (CLI) | payer MEDICARE, BC, SELFPAY ==
[2019-04-30 08:17] VITALS: BMI 31.1
--- NOTE | 2019-11-26 13:40 | CT_ITS ---
STUDY: CT RIGHTLOWER EXTREMITY WITHOUT CONTRAST REASON FOR EXAM: Female, 74 years old. right hip replacement dec 17 RADIATION DOSAGE (If Supplied By Facility): CTDIvol = ( 13.96 ) mGy, DLP = ( 848.46 ) mGycm TECHNIQUE: Thin section transaxial imaging of the pelvis and knees was obtained, with sagittal and coronal reconstructed images. Individualized dose optimization techniques were used for this CT. COMPARISON: None. Hip findings: The visualized intra-abdominal and intrapelvic structures are grossly unremarkable. The uterus is absent. There is severe narrowing and osteophytic changes of the right hip joint. Minimal lateral subluxation of the right femoral head in relation to the acetabulum. Normal left hip joint. No no fractures are present. No aggressive process. Patchy demineralization is seen throughout the osseous structures. Moderate to severe degenerative changes are seen in the lower lumbar spine. Normal superior and inferior pubic rami. There is narrowing of the pubic symphysis with spurring. Normal ischial tuberosity. Normal visualized iliac wing, sacroiliac joint, and sacral ala. No visualized soft tissue mass or fluid collection. Benign buttock granulomas noted. Grossly unremarkable muscles. Knee findings: There is mild narrowing in the medial compartments of both knees. No visualized fracture or osteonecrosis of the knees. Normal tibiofibular articulations bilaterally. Normal alignment bilaterally. No large joint effusion is seen. Normal proximal tibiofibular articulation. Grossly intact artery sets and patellar tendons bilaterally. The soft tissues are unremarkable. CT/Extremity Lower without Contra IMPRESSION: Severe DJD of the right hip Electronically Signed: Anuj Sood MD at 22:13 EDT , Service support ,
== END ==
PROVIDERS: PCP Nurse Practitioner Family; Referring Provider Specialist; Visit Provider Specialist
DX: M16.11 Unilateral primary osteoarthritis, right hip (principal)
CPT/HCPCS: 73700

== ENCOUNTER 2019-12-18 10:02 | Inpatient (IN) | payer MEDICARE, BC, SELFPAY ==
[2019-04-30 08:17] VITALS: BMI 31.1
--- NOTE | 2019-11-30 19:34 | PCM.HP.BLA ---
History and Physical History and Physical Patient Name: Mary Jane Hodge : 1945 From: KRYSTIN HARDY NP DATE OF SURGERY: 12/18/2019 SCHEDULED PROCEDURE: Robotic-assisted anterior right total hip arthroplasty HISTORY OF PRESENT ILLNESS: Preoperative history and physical exam was performed on November 26, 2019. This is a 74-year-old female who has been having ongoing right hip pain for over 2 years. She describes the pain as intermittent, aching and stabbing. The pain is made worse with sitting and walking. The patient reports inability to perform activities of daily living including housework and shopping. She reports an inability to get in and out of the car easily and walk for any distance. The patient feels unsafe going up and down stairs as a result of the right hip pain. The patient does ambulate with the use of a walker. The patient has a medical history pertinent for gout, osteoarthritis, leukemia and hypertension. She has a history of phlebitis and a DVT. The patient was placed on Eliquis and Lovenox due to the DVT and experienced GI bleeding with both medications. She was then placed on aspirin for the DVT. 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 The patient underwent a bone marrow transplant for the leukemia in May 2019. She was initially on immunosuppressive medications which she discontinued 2 weeks ago. The patient does have a history of pneumonia. She currently denies chest pain, fevers, chills, shortness of breath, difficulty breathing or recent infections. Surgical clearance will be obtained from her primary care provider. Previous conservative measures attempted consist of rest, heat, elevation and physical therapy with mild relief. The patient has been taking oxycodone and tramadol for pain control. After failing conservative measures and discussing treatment options with Dr. Jermain Chang the patient does wish to proceed with a robotic-assisted anterior right total hip arthroplasty. REVIEW OF SYSTEMS: ROS: Const: Denies anorexia, change in appetite, fever, difficulty sleeping, weight change. CV: Denies chest pain, heart murmur, irregular heartbeat and peripheral vascular disease. Resp: Denies asthma, cough, pneumonia, sleep apnea, shortness of breath, tuberculosis and wheezing. GI: Denies constipation, diarrhea, heartburn, nausea, rectal itching, bloody stools and vomiting. : Denies incontinence. Musculo: Denies pain, trouble walking and weakness. Skin: Reports history of shingles, but denies Raynaud's and tattoo. Neuro: Denies ambulatory dysfunction, dizziness, numbness/tingling and tremor. Psych: Denies anxiety, depression, insomnia, mental illness and stress. Tyler/Lymph: Denies anemia, bleeding/bruising tendency and past transfusion. Reviewed and updated. PAST MEDICAL HISTORY: Advance Care Plan: Other Directive, POA Effective Date: 10/17/2019 Other Directive, LIVING WILL Effective Date: 10/17/2019 PMH: Medical Problems: History Of Phlebitis, Gout, Arthritis, Leukemia High Blood Pressure - CONTROLLED DVT - IN THE PAST YEAR GI Bleeding - WHILE SHE WAS ON A BLOOD THINNER Pneumonia - THE PAST YEAR Graft vs. Host Disease - As a result of the bone marrow transplant. Accidents: RT Shoulder - DISLOCATED & FX Surgical Hx: Hysterectomy - 1990 [facility] Tubal Ligation - 1975 [facility] Bone Marrow Transplant - (05/2019) [facility] Toe - @[facility], Anesthesia Complications: None Assistive Devices: Glasses, Walker Reviewed and updated. SOCIAL HISTORY: SH: Marital: .Occupation: Retired.Work Status: Retired.Hand Dominance: Right-handed. Personal Habits: Cigarette Use: Never Smoked Cigarettes.E-Cigarette Use: Never used.Alcohol: Denies use.Drug Use: Denies Use.Enjoy Exercising: Daily. Reviewed and updated. VITALS: Ht: 60 Wt: 149lb 0oz Wt k.586 BMI: 29.1 BP: 137/63 Pulse: 94 T: 97.1 T: 36.2C Pain Level: 4 ALLERGIES: Zosyn Cefepime Benadryl Adhesives Vancomycin MEDICATIONS: Cipro 500 mg 1 by mouth twice a day, Voriconazole 200 mg 1po q 12 hrs, Acyclovir 400 mg 2po qday, Magnesium Lactate 84 MG (7Meq) 1po bid, Aspir-81 81 mg 1po qday, Januvia 100 mg 1po qday, Olanzapine 5 mg 1po qhs, Tramadol HCL 50 mg 1-2 by mouth every 6 hours as needed pain, Oxycodone HCL 5 mg 1-2 by mouth every 6 hours, Centrum Silver 50+Women 50+Women 1po qday, Probiotic 250 mg 2po qday, Clotrimazole 1po tid after meals, Vitamin D3 50 mcg (1999 Ut) once A day PRE-OP EXAM: General appearance:NORMAL Other: Eyes: Conjunctivae and lids: NORMAL Pupils: ERR Ears, Nose, Mouth, and Throat: NORMAL Other: Inspection of lips, teeth and gums: NORMAL Other: Respiratory: Assessment of respiratory effort: NORMAL Other: Auscultation of lungs: clear to auscultation no wheezes, rhonchi or rales. Cardiovascular: Auscultation of heart: regular rate and rhythm, no murmurs, gallops or rubs. Gastrointestinal: Exam of abdomen: soft, nontender, nondistended bowel sounds present. Neurological: see below Psychiatric: Orientation to time, place and person: NORMAL Other: Mood and affect: NORMAL Other: PHYSICAL EXAMINATION: The patient ambulates with a mild antalgic gait. She does ambulate with a walker secondary to pain and weakness. Crepitus with motion of the right hip. Flexion to 70. Internal rotation to neutral with reproduction of pain. 10 of external rotation. 4/5 hip flexion strength. Sensation intact to saphenous, sural, deep and superficial peroneal and tibial nerve distributions. IMAGING STUDIES: 3 views of right hip including weightbearing AP pelvis and AP hip and crossfire lateral obtained on October 17, 2019 reviewed reveals joint space narrowing, subchondral sclerosis and osteophyte formation consistent with severe osteoarthritis and avascular necrosis. She does have flattening of the femoral head. There is erosion of the acetabular weightbearing surface creating a dysplastic acetabular shape. IMPRESSION: 1. Osteoarthritis, right hip 2. Hypertension 3. History of gout 4. History of phlebitis and DVT 5. Leukemia 6. 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 History of GI bleeding with the use of Eliquis and Lovenox PLAN: Dr. Jermain Chang did discuss and review with the patient all treatment options including surgical versus nonsurgical. The patient does wish to proceed with the above-stated procedure. Potential risk, benefits and complications of the procedure were discussed in detail including but not limited to , infection, nerve and blood vessel damage, persistent pain, numbness, tingling, paresthesia, blood clot, pulmonary embolism and requirement for possible further surgery. The patient expressed full understanding and has no further questions for the doctor. The patient does agree to proceed with the above-stated procedure and has signed the surgery consent form. Discussed with the patient the risks associated with the COVID-19 virus including the risk of exposure while at the hospital. The patient was reassured local hospitals have low infection rates and taken all necessary precautions to limit patient exposure to COVID-19. Limiting the patient's time in the hospital may decrease their exposure to COVID-19. The patient was notified that we will need to comply with any screening or testing the hospital wishes to perform and that surgery may be delayed for any positive test results. This dictation was created using voice recognition software. Phonetic and/or grammatical errors may exist. ___ I have re-examined the patient. There are no clinical changes since date of exam. ___ See progress notes for changes. ___ Dictated on admission Date: Time: Signature:
--- NOTE | 2019-12-11 12:39 | EKG12_ITS ---
Test Reason : PRE OP Blood Pressure : / mmHG Vent. 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
[2019-12-18] VITALS (12 sets, daily range): BP systolic 111–137; BP diastolic 47–76; PULSE 80–105; RESP 14–17; TEMP 35.8–36.7; O2SAT 95–100; BMI 30.9
[2019-12-18] MEDS: Lactated Ringers 1,000 ML 125 ML IV ×2 (07:00→16:40)
[2019-12-18] MEDS: Acetaminophen 500 MG Tablet 1000 MG PO ×2 (09:36→22:21)
[2019-12-18] MEDS: Gabapentin 600 MG Tablet PO (09:36)
[2019-12-18] MEDS: Lactated Ringers 1,000 ML 100 ML IV (09:38)
--- NOTE | 2019-12-18 10:45 | CASEMGMT ---
Social Work Note PALLAVI spoke with Charge Nurse. Pt is having surgery today, pt's daughter is requesting either RU or TCU for pt at discharge. Pt is able to discharge to TCU. PALLAVI placed a call to [facility] in TCU, TCU will have a bed available for pt tomorrow. PALLAVI will follow up with pt once pt is done with surgery. Plan: Likely TCU. PALLAVI will discuss with pt. Blanche Lei PROJECT MANAGEMENT, CHEF
--- NOTE | 2019-12-18 11:00 | HIP_PTH ---
PATIENT: ADRIANA KUMAR LOC: [facility] U#:[id number] AGE/SX: 74/F ROOM: MS319 RE12/19/[address]: Dr. Levy Pang MD : 1945 BED: 1 DIS: 12/20/2019 SPEC #: [id number] RECD: 12/18/19 14:28 STATUS: UYE CAROLIN #: [id number] EMA: 12/18/19 11:[address]: Jermain Chang DEPT: SURGICAL PATHOLOGY RECD BY: Zuly Amos ENTERED: 12/19/19 08:43 SP TYPE: TOTAL HIP OTHR DR: DO Dr. Levy Emerson MD Whitney Hofstetter, DIRECTOR EXTERNAL COMMUNICATIONS-Valeria Tissues: A - Hip, NOS B - Synovial tissue of joint, NOS Procedures: Decalcification bone/plaque Special Stain Group I Surgery Specimen Level IV AFB Stain (control) GMS Stain (control) HEADER OPERATION: ERAS, robotic assisted anterior total hip arthroplasty PRE-OP DIAGNOSIS: Osteoarthritis right hip TISSUE SUBMITTED: A - Right femoral head, B - Right hip intra-articular synovium MICROSCOPIC DIAGNOSIS A. Bone and soft tissue right hip, resection: Severe degenerative joint disease. B. Right hip intra-articular synovium. Benign synovial hyperplasia, histiocytic reaction to bone fragments and granulation. Bone with rare microgranulomas. Negative for microorganisms. See comment. AM:jaiden 12/23/19 COMMENT B. AFB and GMS stains with matched controls are negative for microorganisms. MICROSCOPIC DESCRIPTION Slides are reviewed. GROSS DESCRIPTION A - Received is one container labeled with the patient's name and designated femoral head right. The specimen consists of a deformed femoral head measuring 4.5 x 5 x 2.5 cm. The articular surface displays prominent osteophyte formation, eburnation and bone erosion. Lifts And Cranes Inspector sections are submitted in one cassette after decalcification. B - Received in fixative is one container labeled with the patient's name and designated right hip intra-articular synovium. The specimen consists of two pieces of soft tissue that in aggregate measure 6 x 4 x 2 cm. Sections do not reveal any mass lesion. A focal area of bone is also noted. Lifts And Cranes Inspector sections are submitted in two cassettes. Cassette 2 also contains the area of bone after decalcification. SJ:jaiden 12/19/19 TC:5 CPT: 31961 x2, 24393 x2, 90108 x2
[2019-12-18] MEDS: dexAMETHasone 10 MG/ML Vial IV (11:51)
[2019-12-18 12:00] LABS: Bedside Glucose 100 mg/dL (70-110)
--- NOTE | 2019-12-18 12:40 | RAD_ITS ---
STUDY: X-RAY - PELVIS AND RIGHT HIP REASON FOR EXAM: Female, 74 years old. Anterior hip in OR TECHNIQUE: 1 views of the pelvis and hip. COMPARISON: None. FINDINGS: Intraoperative imaging provided for right hip replacement. RAD/Hip 1 view with Pelvis IMPRESSION: Intraoperative imaging provided for right hip replacement. Electronically Signed: Andrea Michaels, at 15:26 EST , Service support ,
[2019-12-18] MEDS: Lactated Ringers 1,000 ML 999 ML IV (13:01)
--- NOTE | 2019-12-18 13:02 | PCM.OPRPT ---
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 We did lengthen the leg by roughly 1 cm. Soft tissues were excessively tight. Based on the current stability of the hip we did leave her a couple millimeter short based on radiograph and Amrik guidance. We felt based on her age this would be less detrimental than extensive soft tissue releases. high reach operator: Cristopher Brito Type of Anesthesia:: Spinal Anesthesiologist: Apolinar Aguirre Special Medications: 600 mg clindamycin, 1 g TXA at incision, 1 g TXA closure, 10 mg Decadron, joint cocktail (5 mg Duramorph, 30 mL of 0.5% Ropivicaine, 1000 units of epinephrine, 30 mg of Toradol) Specimen's removed: Bony cuts. Femoral head and robust synovial lining were sent for pathology. Estimated Blood Loss (mL): 200 Fluids Replaced: 1000 mL crystalloid Description of Procedure: Components used: 1. Accolade 2 Aba femoral stem size 3 132? 2. [place] trident 2 acetabular shell size 52 mm with 2 screws placed orthogonally 3. Aba X3 polyethylene alpha code E 4. Aba Biolox delta 36 mm, +7.5 mm femoral head Brief history operative indications: 74 yo f who failed conservative measures for their hip osteoarthritis. X-rays were consistent with osteoarthritis including joint space narrowing, osteophyte formation, dysplastic acetabulum and shortened femoral head with leg length discrepancy and subchondral cysts. Total hip replacement was discussed with the patient with risks and benefits including but not limited to blood loss, DVTs, PEs, neurovascular damage, dislocation, general risks of anesthesia including loss of life. Patient demonstrated an understanding medical clearance is obtained the patient was consented for surgery. Procedure: On the date of procedure the patient's r hip was marked in the preoperative area. Patient was then taken back to the operating room where anesthesia assumed control of the C-spine and airway and administered anesthetic. Patient was transferred to the operating table and placed in the supine position. The hips were placed at the break of the bed and a sacral bump was placed. A checkpoint was placed on the tibial tubercle. The r lower extremity was then prepped out in a sterile fashion using chlorhexidine while the surgeon scrubbed. The PA was vital in the positioning of the patient. Upon reentering the room the r lower extremity was draped in the standard orthopedic fashion and the incision was marked. A timeout was called and everyone agreed upon the side, the site, the procedure be performed, antibody given, and patient's identity. 3 pins were placed in the right iliac crest with a small skin incision and blunt dissection down to the bone. After the skins were placed in a ray was placed for targeting. At this time left hip operative incision was made through skin, subcutaneous tissue, and fat down to fascia. The fascia was then incised and the TFL was retracted laterally. A retractor was placed on the lateral border of the femoral neck. Attention was directed to the inferior portion of the approach and all crossing vessels were identified and appropriately coagulated. A retractor was then placed on the medial portion of the femoral neck. The anterior capsule was then cleared of all soft tissue and then H shaped capsulotomy was made. The retractors were then placed inside the capsule. The checkpoint was placed. The checkpoints were registered. The femoral neck was identified and a cleanup cut was made. At this time a power corkscrew was used to remove the femoral head. Attention was then turned toward the acetabulum where the soft tissues were appropriately retracted and debrided. The acetabulum was registered. The robot was brought into the field sterilely and the acetabulum was reamed to 52 mm. A 52 mm cup was then selected and impacted into place. Acetabular liner was impacted into place and locking mechanism was verified. The position of the acetabular cup was then verified under live fluoroscopy. Attention was then turned to the femur. Soft tissue releases on the medial and lateral femoral neck were appropriately done, the leg was externally rotated and lateralized. A [place] retractor was placed medially and proximally to the greater trochanter this allowed appropriate visualization and exposure of the femoral canal. Rongeour was then used to remove excess lateral bone. A canal finder and entry broach were used to open the proximal canal. Once we verified we were down the femoral canal we subsequently broached up to a size 3 femur. The appropriate neck was placed in the previously selected head was trialed with a 7.5 mm neck. Traction was pulled and the hip was reduced with internal rotation. Once it was appropriately reduced and stability was checked. There was minimal shuck, equal leg lengths and appropriate stability with hyperextension and external rotation as well as with 90? flexion and internal rotation. With the longer femoral neck we were able to lengthen the patient roughly 11 mm based on preoperative CT scan and Amrik findings. This did leave her a couple millimeters short. However based on the tension of the soft tissues we felt excessive soft tissue releases will be more morbid than placing the patient with a slightly shorter limb. Fluoroscopy was then also used to verify the position of the components and leg lengths using the contralateral side for comparison. The trial components were then dislocated the proximal femur was again exposed and the components were removed from the wound. The final components were verified and opened. The wound was copiously irrigated out with normal saline. The acetabulum was checked for any residual debris. The final components were placed and impacted. Traction and internal rotation were again used to reduce the hip. After adequate reduction the hip remained stable with appropriate leg lengths. The final components were once again checked with live fluoroscopy and were found to be satisfactory. The wound was then copiously irrigated with normal saline once more, and hemostasis was obtained. Closure was then done using #1 Vicryl runner to close the fascia. A 2-0 vicryl interuppted sutures were used to close the subcutaneous skin. A 3-0 Monocryl and Steri-Strips were used for final skin closure. the pins were removed and pin sites closed. A sterile dressing was placed. Patient was awakened by anesthesia and transferred to the [facility]. Patient was then transferred to the PACU for recovery. Postoperative plan: Patient will get 24 hours postop antibiotics. Patient will get in-house physical therapy and will be weight-bear as tolerated. Patient will follow up in office in 2 weeks for a wound check and x-rays. During the course of the procedure the physician wood handler (PE) played a vital role. Their intimate knowledge of my steps in the procedure aided in safe and expedient completion of the procedure. The PE played a vital rolls in positioning particularly in obtaining the appropriate positioning of the sacral bump. The PE was also vital in the retraction of soft tissues during the exposure and especially the femoral work as this is a vital part of the procedure to prevent complications and fractures. The PE was also vital and protecting soft tissues during times of bony cuts and reaming. He also played a vital role in closure with my direct supervision. The PE was also important during reduction and dislocation of the joint and trials intraoperatively. - Complications No intraoperative complications - Admit VTE Documentation VTE Present on Admission: No VTE Mechan Device Prophylaxis: SCD's, Thigh High SOHAIL Hose VTE Pharm Prophylaxis ordered?: Yes
--- NOTE | 2019-12-18 14:10 | RAD_ITS ---
STUDY: X-RAY - PELVIS AND RIGHT HIP REASON FOR EXAM: Female, 74 years old. POST OP RIGHT KHANG TECHNIQUE: 2 views of the pelvis and hip. COMPARISON: Comparison is made with prior study dated 08/29/2018. FINDINGS: The patient is status post right total hip replacement. There is good alignment. Postoperative soft tissue changes. RAD/Hip Min 2 Views (Portable) IMPRESSION: Status post right total hip replacement. There is good alignment. Postoperative soft tissue changes. Electronically Signed: Andrea Michaels, at 15:27 EST , Service support ,
[2019-12-18 14:11] LABS: Bedside Glucose 221 mg/dL (70-110)
[2019-12-18] MEDS: Insulin Lispro 100 UNIT/ML INSULN.PEN SC (14:23)
[2019-12-18] MEDS: Ketorolac 15 MG/ML Vial IV (16:24)
[2019-12-18] MEDS: 0.9% NaCl Peripheral Flush Adult/Peds IV (16:24)
--- NOTE | 2019-12-18 16:58 | PCM.PN.HOSP ---
Subjective: Feeling well post op right total hip replacement. Vitals/I&O's: Vital Signs Temp Pulse Resp BP Pulse Ox 36.0 C L 84 14 127/66 H 100 12/18/19 16:05 12/18/19 16:05 12/18/19 16:05 12/18/19 16:05 12/18/19 16:05 Oxygen Flow Rate (L/min) 6 Oxygen Delivery Method Room Air Weight: 69.6 kg Body Mass Index (BMI) 30.9 Finger Stick Blood Glucose 221 Intake and Output for Last 24 Hours 12/16/19 12/17/19 12/18/19 23:59 23:59 23:59 Intake Total 3430 / 3430 Balance 3430 / 3430 General: Alert, No apparent distress, - - slightly groggy. afebrile. Neck: No Nodes, Thyroid Normal Size and Texture Lungs: Clear to auscultation, Normal air movement, No rhonchi, No wheeze Cardiovascular: Regular rate, Regular Rhythm, Normal S1, Normal S2 Abdomen: Bowel Sounds Present, Soft, Non Tender, Non-Distended, No Hepato-splenomegaly Extremities: No edema, No Calf Tenderness Psych/Mental Status: Normal Affect, Agitated Laboratory Results 12/18/19 09:21: POC Glucose 100 12/18/19 14:00: POC Glucose 221 H Current Medications Acetaminophen (Acetaminophen 500 Mg Tablet) 1,000 mg PO Q8 [facility] Acyclovir (Acyclovir 200 Mg Capsule) 400 mg PO BID [facility] Aspirin (Aspirin 81 Mg Tab.Chew) 81 mg PO BIDCM [facility] Cholecalciferol (Cholecalciferol (Vit D3) 1,000 Unit (25mcg)) 2,000 unit PO DAILY [facility] Enteral Nutritional Formula (Ensure Surgery 237 Ml Liquid) 237 ml PO TIDCM [facility] Last Admin: 12/18/19 16:26 Dose: Not Given Documented by: Famotidine (Famotidine 20 Mg Tablet) 20 mg PO DAILY [facility] Last Admin: 12/18/19 16:27 Dose: Not Given Documented by: Lactated Ringer's () 1,000 mls @ 125 mls/hr IV .Q8H [facility] Last Admin: 12/18/19 16:40 Dose: 125 mls/hr Documented by: Clindamycin Phosphate 600 mg/ (Dextrose) 54 mls @ 100 mls/hr IV Q6H [facility] Stop: 12/19/19 05:33 Sodium Chloride () 250 mls @ 15 mls/hr IV .[id number] PRN PRN Reason: Additional IVPB Infusion Insulin Human Lispro (Insulin Lispro 100 Unit/Ml Insuln.Pen) 1 - 6 unit SC Q4H PRN PRN; Protocol PRN Reason: BG>/= 180, SEE PROTOCOL Stop: 12/18/19 18:00 Last Admin: 12/18/19 14:23 Dose: 2 u Documented by: Ketorolac Tromethamine (Ketorolac 15 Mg/Ml Vial) 15 mg IV Q6H PRN PRN PRN Reason: Pain Score 1-5 Stop: 12/20/19 07:32 Last Admin: 12/18/19 16:24 Dose: 15 mg Documented by: Linagliptin (Linagliptin 5 Mg Tablet) 5 mg PO DAILY [facility] Meloxicam (Meloxicam 7.5 Mg Tablet) 7.5 mg PO BID [facility] Morphine Sulfate (Morphine 2 Mg/Ml Syringe) 2 - 4 mg IV Q2H PRN PRN PRN Reason: Pain Score 4-10 Ondansetron HCl (Ondansetron 8 Mg Tablet) 8 mg PO Q8H PRN PRN PRN Reason: NAUSEA Ondansetron HCl (Ondansetron 4 Mg/2 Ml Vial) 4 mg IV Q8H PRN PRN PRN Reason: NAUSEA Oxycodone HCl (Oxycodone 5 Mg Tablet) 5 - 10 mg PO Q4H PRN PRN PRN Reason: Pain Score 4-10 Promethazine HCl (Promethazine 25 Mg Tablet) 25 mg PO Q6H PRN PRN PRN Reason: NAUSEA Promethazine HCl (Promethazine 25 Mg/Ml Syringe) 12.5 mg IM Q6H PRN PRN; Protocol PRN Reason: NAUSEA/VOMITING Senna/Docusate Sodium (Senna/Docusate Sodium 1 Tablet) 2 tablet PO BID [facility] Last Admin: 12/18/19 16:27 Dose: Not Given Documented by: Sodium Chloride (0.9% Nacl Peripheral Flush Adult/Peds) 5 - 15 ml IV UD PRN PRN Reason: SALINE FLUSH Last Admin: 12/18/19 16:24 Dose: 10 ml Documented by: STROKE Vital Signs/Narrative: Vital Signs Temp Pulse Resp BP Pulse Ox 12/18/19 16:05 36.0 C L 84 14 127/66 H 100 12/18/19 15:27 36.4 C L 83 17 112/52 L 100 12/18/19 15:00 84 16 117/55 L 100 12/18/19 14:45 82 16 117/47 L 100 12/18/19 14:30 85 17 131/51 H 100 12/18/19 14:15 84 16 117/50 L 100 12/18/19 14:00 87 16 111/48 L 100 12/18/19 13:47 36.3 C L 86 16 121/53 H 100 Medical Necessity - Tobacco Use Smoking Status: Never smoker Tobacco Use: Non-smoker Assessment/Plan All Active Problems Acute back pain (Acute) 1. status post right total hip replacement: mgmt per ortho 2. DM2: uncontrolled post op. on Linagliptin and SSI here. Anticipate return to sitagliptin (Januvia) on discharge without other agents. 3. HTN: controlled. ok to continue to hold triamterene/HCTZ for now. Anticipate resumption upon discharge. 4. VTE prophylaxis: per primary service: ASA 81 BID. Thank you for the consult. The hospitalist service will continue to follow along during admission. Inpatient E&M: 91798 Subs Hosp L2
[2019-12-18] MEDS: Aspirin 81 MG TAB.CHEW PO (17:28)
[2019-12-18] MEDS: Ensure Surgery 237 ML LIQUID PO (17:28)
[2019-12-18] MEDS: Senna/Docusate Sodium 1 Tablet 2 TABLET PO (22:21)
[2019-12-18] MEDS: Acyclovir 200 MG Capsule 400 MG PO (22:21)
[2019-12-19] VITALS (13 sets, daily range): BP systolic 97–127; BP diastolic 50–78; PULSE 79–105; RESP 16–18; TEMP 36.6–37.2; O2SAT 94–100
[2019-12-19] MEDS: Lactated Ringers 1,000 ML 125 ML IV (01:48)
[2019-12-19] MEDS: Ketorolac 15 MG/ML Vial IV (03:23)
[2019-12-19] MEDS: 0.9% NaCl Peripheral Flush Adult/Peds IV ×2 (04:58→21:20)
[2019-12-19] MEDS: Acetaminophen 500 MG Tablet 1000 MG PO ×3 (05:00→21:20)
[2019-12-19 06:01] LABS: Hematocrit 20.5 % (37-47); Hemoglobin 6.9 g/dL (12.0-15.0); Mean Corp Hgb Conc 33.7 g/dL (32-36); Mean Corpuscular Hgb 35.9 pg (27.0-32.0); Mean Corpuscular Volume 106.8 fL (81-99); Mean Platelet Vol. 8.9 fl (6.2-12.0); Platelet Count 159 K/mm3 (150-450); RBC Distribution Width CV 12.9 % (11.6-14.6); RBC Distribution Width SD 49.3 fl (35.1-43.9); Red Blood Count 1.92 M/mm3 (4.2-5.4); White Blood Count 8.7 K/mm3 (4.4-11.0)
[2019-12-19 06:36] LABS: Anion Gap 5 (5-15); BUN 28 mg/dL (7-18); BUN/Creat Ratio 26.2 RATIO (10-20); Calcium,Total 8.4 mg/dL (8.5-10.1); Chloride 94 mmol/L (98-107); Creatinine, Serum 1.07 mg/dL (0.55-1.02); EST Glomerular Filtration Rate 53 mL/min (>60); Est Glom Filt Rate - Afr Amer 65 mL/min (>60); Estimated Creatinine Clearance 50.68 ml/min; Glucose 107 mg/dL (74-106); Potassium 3.4 mmol/L (3.5-5.1); Sodium Level 131 mmol/L (136-145)
[2019-12-19] MEDS: Acyclovir 200 MG Capsule 400 MG PO ×2 (08:16→21:20)
[2019-12-19] MEDS: Famotidine 20 MG Tablet PO (08:17)
[2019-12-19] MEDS: LINAGLIPTIN 5 MG TABLET PO (08:17)
[2019-12-19] MEDS: Aspirin 81 MG TAB.CHEW PO ×2 (08:17→17:10)
[2019-12-19] MEDS: Senna/Docusate Sodium 1 Tablet 2 TABLET PO ×2 (08:17→21:20)
[2019-12-19] MEDS: Ensure Surgery 237 ML LIQUID PO ×3 (08:22→17:10)
--- NOTE | 2019-12-19 10:08 | CASEMGMT ---
Social Work Note SW received message from Merle in TCU stating pt will need new COVID test. Charge Nurse updated. SW in to speak with pt to complete assessment. SW introduced self and role at [facility]. Pt is alert and orientated, answers questions appropriately. Living Arrangements: Pt states that she lives alone in a one story home with two steps to enter. ADLs: Pt states she was previously independent with ADLs, states no longer drives. DME: Pt states she has a walker PCP: Maegan Benavides [facility]: [facility] [place] Substance Abuse Hx: Pt denied Mental Health Hx: Pt denied HHC: Pt states she's had HHC before in the past, states it was through [facility]. SNF: Pt denied SW informed pt that pt's family had called and requested pt go to [facility] TCU at discharge. Pt confirms she knew about this and is agreeable to going to [facility] TCU. SW informed pt that TCU is able to accept pt and pt can admit to TCU when medically cleared. Pt states understanding. Pt denied additional needs or concerns at this time. PALLAVI spoke with physician. Pt is getting blood today, will likely be ready for discharge to TCU tomorrow. PALLAVI placed a call to Merle in TCU and updated her that pt may discharge to TCU tomorrow. Merle states understanding. Plan: TCU when medically cleared Blanche Lei RN PALLIATIVE CARE, [employer] QTP TESTER
--- NOTE | 2019-12-19 11:09 | PCM.PN.ORT ---
Subjective: The patient was sitting in bedside chair upon examination. Patient denies any chest pain, shortness of breath, dizziness, lightheadedness, nausea or vomiting, or calf pain. Pain is controlled on medications. No adverse overnight events. Patient has a drop in hemoglobin and is currently 6.9. Patient has previous history of AML. She currently states she is having no dizziness or lightheadedness or feelings of passing out. There has been some readings of low blood pressure over the past several readings. Case was discussed with the hospitalist and at this time we will plan for transfusion. Plan is for patient to go to the transitional care unit when medically stable. She has not been able to do any physical therapy at this time.. Objective: Several readings of low blood pressure and afebrile. She is currently asymptomatic clinically but has a drop in hemoglobin to 6.9 Patient is able to plantarflex and dorsiflex actively. Sensation is intact to light touch to saphenous, sural, superficial and deep peroneal, and tibial distribution. Dressing is clean dry and intact. Negative Homans bilaterally, negative signs and symptoms of DVT. - Physical Exam Vitals/I&O's: Vital Signs Temp Pulse Resp BP Pulse Ox 97.8 F 97 16 116/54 L 95 12/19/19 08:10 12/19/19 08:10 12/19/19 08:10 12/19/19 10:30 12/19/19 08:10 Oxygen Flow Rate (L/min) 6 Oxygen Delivery Method Room Air Weight: 69.6 kg Body Mass Index (BMI) 30.9 Finger Stick Blood Glucose 221 Intake and Output for Last 24 Hours 12/17/19 12/18/19 12/19/19 23:59 23:59 23:59 Intake Total 4821.75 / 4821.75 1685.25 / 1685.25 Output Total 0 / 0 750 / 750 Balance 4821.75 / 4821.75 935.25 / 935.25 General: Alert, Oriented x3, Cooperative, No apparent distress Laboratory Results 12/18/19 09:21: POC Glucose 100 12/18/19 14:00: POC Glucose 221 H 12/19/19 05:25: WBC 8.7, RBC 1.92 L, Hgb 6.9 L, Hct 20.5 L, MCV 106.8 H, MCH 35.9 H, MCHC 33.7, RDW Std Deviation 49.3 H, RDW Coeff of Delma 12.9, Plt Count 159, MPV 8.9 12/19/19 05:25: Sodium 131 L, Potassium 3.4 L, Chloride 94 L, Carbon Dioxide 32.0, Anion Gap 5, BUN 28 H, Creatinine 1.07 H, Estim Creat Clear Calc 50.68, Est GFR (MDRD) Af Amer 65, Est GFR (MDRD) Non-Af 53 L, BUN/Creatinine Ratio 26.2 H, Glucose 107 H, Calcium 8.4 L 12/19/19 10:40: Blood Type Pending, Antibody Screen Pending, Crossmatch See Detail 12/19/19 10:40: Crossmatch See Detail Current Medications Acetaminophen (Acetaminophen 500 Mg Tablet) 1,000 mg PO Q8 [facility] Last Admin: 12/19/19 05:00 Dose: 1,000 mg Documented by: Acyclovir (Acyclovir 200 Mg Capsule) 400 mg PO BID [facility] Last Admin: 12/19/19 08:16 Dose: 400 mg Documented by: Aspirin (Aspirin 81 Mg Tab.Chew) 81 mg PO BIDCM [facility] Last Admin: 12/19/19 08:17 Dose: 81 mg Documented by: Cholecalciferol (Cholecalciferol (Vit D3) 1,000 Unit (25mcg)) 2,000 unit PO DAILY [facility] Last Admin: 12/19/19 08:17 Dose: 2,000 unit Documented by: Enteral Nutritional Formula (Ensure Surgery 237 Ml Liquid) 237 ml PO TIDCM [facility] Last Admin: 12/19/19 08:22 Dose: 237 ml Documented by: Famotidine (Famotidine 20 Mg Tablet) 20 mg PO DAILY [facility] Last Admin: 12/19/19 08:17 Dose: 20 mg Documented by: Sodium Chloride () 250 mls @ 15 mls/hr IV .[id number] PRN PRN Reason: Additional IVPB Infusion Linagliptin (Linagliptin 5 Mg Tablet) 5 mg PO DAILY [facility] Last Admin: 12/19/19 08:17 Dose: 5 mg Documented by: Morphine Sulfate (Morphine 2 Mg/Ml Syringe) 2 - 4 mg IV Q2H PRN PRN PRN Reason: Pain Score 4-10 Ondansetron HCl (Ondansetron 8 Mg Tablet) 8 mg PO Q8H PRN PRN PRN Reason: NAUSEA Ondansetron HCl (Ondansetron 4 Mg/2 Ml Vial) 4 mg IV Q8H PRN PRN PRN Reason: NAUSEA Oxycodone HCl (Oxycodone 5 Mg Tablet) 5 - 10 mg PO Q4H PRN PRN PRN Reason: Pain Score 4-10 Promethazine HCl (Promethazine 25 Mg Tablet) 25 mg PO Q6H PRN PRN PRN Reason: NAUSEA Promethazine HCl (Promethazine 25 Mg/Ml Syringe) 12.5 mg IM Q6H PRN PRN; Protocol PRN Reason: NAUSEA/VOMITING Senna/Docusate Sodium (Senna/Docusate Sodium 1 Tablet) 2 tablet PO BID [facility] Last Admin: 12/19/19 08:17 Dose: 2 tablet Documented by: Sodium Chloride (0.9% Nacl Peripheral Flush Adult/Peds) 5 - 15 ml IV UD PRN PRN Reason: SALINE FLUSH Last Admin: 12/19/19 04:58 Dose: 10 ml Documented by: Medical Necessity - Tobacco Use Smoking Status: Never smoker Tobacco Use: Non-smoker Assessment/Plan All Active Problems Acute back pain (Acute) 1. S/P right direct anterior total hip arthroplasty POD #1 2. Continue Pain Medications: Tylenol and oxycodone 3. DVT Prophylaxis: Take 81 mg aspirin twice daily for 4 weeks postoperatively for DVT prophylaxis 4. PT/OT: Patient is weightbearing as tolerated. At this time I will hold therapy as patient has significant drop in hemoglobin and lower blood pressure. 5. Acute on chronic anemia with blood loss secondary to surgery without any intraoperative complications. H & H: 6.9.5, patient does have several readings of low blood pressure. She denies dizziness or lightheadedness. Case was discussed with the hospitalist and plan will be for transfusion. 6. Continue postoperative medical management per medicine: Blood work will be ordered by medicine and we will continue to follow. Plan will be for possible discharge to the transitional care unit tomorrow if medically stable. 7. Encouraged Incentive Spirometry 8. Disposition: Plan is for discharge when medically ready to the transitional care unit at [facility].
[2019-12-19] MEDS: oxyCODONE 5 MG Tablet PO ×3 (12:29→21:26)
--- NOTE | 2019-12-19 12:41 | PN_ITS ---
<Sameer Hernandez - Last Filed: 12/19/19 12:41> Reason for Visit: anemia. Subjective: No complaints. Doing well. No omer bleeding. Vitals/I&O's: Vital Signs Temp Pulse Resp BP Pulse Ox 97.8 F 97 16 116/54 L 95 12/19/19 08:10 12/19/19 08:10 12/19/19 08:10 12/19/19 10:30 12/19/19 08:10 Oxygen Flow Rate (L/min) 6 Oxygen Delivery Method Room Air Weight: 153 lb 7.068 oz Body Mass Index (BMI) 30.9 Finger Stick Blood Glucose 221 Intake and Output for Last 24 Hours 12/17/19 12/18/19 12/19/19 23:59 23:59 23:59 Intake Total 4821.75 / 4821.75 1685.25 / 1685.25 Output Total 0 / 0 750 / 750 Balance 4821.75 / 4821.75 935.25 / 935.25 General: Alert, Oriented x3, Cooperative HEENT: Atraumatic, PERRLA, EOMI, Normocephalic Neck: Supple, No JVD, Negative Carotid Bruits Lungs: Clear to auscultation, Normal air movement Cardiovascular: Regular rate, No murmurs Abdomen: Bowel Sounds Present, Soft, Non Tender Extremities: No edema, Capillary Refill Less than 3 Seconds Skin: No rashes, No breakdown, - - generalized pallor Musculoskeletal: No Tenderness to Palpation of Joints or Extremities Neurological: Cranial nerves II-XII grossly intact Psych/Mental Status: Normal Affect, Appropriate, Alert and oriented to time, place, person, mood and affect Laboratory Results 12/18/19 14:00: POC Glucose 221 H 12/19/19 05:25: WBC 8.7, RBC 1.92 L, Hgb 6.9 L, Hct 20.5 L, MCV 106.8 H, MCH 35.9 H, MCHC 33.7, RDW Std Deviation 49.3 H, RDW Coeff of Delma 12.9, Plt Count 159, MPV 8.9 12/19/19 05:25: Sodium 131 L, Potassium 3.4 L, Chloride 94 L, Carbon Dioxide 32.0, Anion Gap 5, BUN 28 H, Creatinine 1.07 H, Estim Creat Clear Calc 50.68, E st GFR (MDRD) Af Amer 65, Est GFR (MDRD) Non-Af 53 L, BUN/Creatinine Ratio 26.2 H, Glucose 107 H, Calcium 8.4 L 12/19/19 10:40: Blood Type A POSITIVE, Antibody Screen NEGATIVE, Crossmatch See Detail 12/19/19 10:40: Crossmatch See Detail 12/19/19 11:25: COVID-19 ([facility]) Pending Current Medications Acetaminophen (Acetaminophen 500 Mg Tablet) 1,000 mg PO Q8 [facility] Last Admin: 12/19/19 05:00 Dose: 1,000 mg Documented by: Acyclovir (Acyclovir 200 Mg Capsule) 400 mg PO BID [facility] Last Admin: 12/19/19 08:16 Dose: 400 mg Documented by: Aspirin (Aspirin 81 Mg Tab.Chew) 81 mg PO BIDCM [facility] Last Admin: 12/19/19 08:17 Dose: 81 mg Documented by: Cholecalciferol (Cholecalciferol (Vit D3) 1,000 Unit (25mcg)) 2,000 unit PO DAILY [facility] Last Admin: 12/19/19 08:17 Dose: 2,000 unit Documented by: Enteral Nutritional Formula (Ensure Surgery 237 Ml Liquid) 237 ml PO TIDCM [facility] Last Admin: 12/19/19 12:23 Dose: 237 ml Documented by: Famotidine (Famotidine 20 Mg Tablet) 20 mg PO DAILY [facility] Last Admin: 12/19/19 08:17 Dose: 20 mg Documented by: Hydrocortisone Sodium Succinate (Hydrocortisone Sod Succinate 100 Mg/2 Ml Vial) 25 mg IV X1 ONE Stop: 12/19/19 12:31 Sodium Chloride () 250 mls @ 15 mls/hr IV .[id number] PRN PRN Reason: Additional IVPB Infusion Linagliptin (Linagliptin 5 Mg Tablet) 5 mg PO DAILY [facility] Last Admin: 12/19/19 08:17 Dose: 5 mg Documented by: Morphine Sulfate (Morphine 2 Mg/Ml Syringe) 2 - 4 mg IV Q2H PRN PRN PRN Reason: Pain Score 4-10 Ondansetron HCl (Ondansetron 8 Mg Tablet) 8 mg PO Q8H PRN PRN PRN Reason: NAUSEA Ondansetron HCl (Ondansetron 4 Mg/2 Ml Vial) 4 mg IV Q8H PRN PRN PRN Reason: NAUSEA Oxycodone HCl (Oxycodone 5 Mg Tablet) 5 - 10 mg PO Q4H PRN PRN PRN Reason: Pain Score 4-10 Last Admin: 12/19/19 12:29 Dose: 5 mg Documented by: Promethazine HCl (Promethazine 25 Mg Tablet) 25 mg PO Q6H PRN PRN PRN Reason: NAUSEA Promethazine HCl (Promethazine 25 Mg/Ml Syringe) 12.5 mg IM Q6H PRN PRN; Protocol PRN Reason: NAUSEA/VOMITING Senna/Docusate Sodium (Senna/Docusate Sodium 1 Tablet) 2 tablet PO BID [facility] Last Admin: 12/19/19 08:17 Dose: 2 tablet Documented by: Sodium Chloride (0.9% Nacl Peripheral Flush Adult/Peds) 5 - 15 ml IV UD PRN PRN Reason: SALINE FLUSH Last Admin: 12/19/19 04:58 Dose: 10 ml Documented by: STROKE Vital Signs/Narrative: Vital Signs BP 12/19/19 10:30 116/54 L Medical Necessity - Tobacco Use Smoking Status: Never smoker Tobacco Use: Non-smoker Assessment/Plan All Active Problems Acute back pain (Acute) 1. s/p right total hip - POD #1. doing well minimal pain. PTOT when appropriate. 2. acute on chronic anemia 2/2 hx leukemia - previously received frequent transfusions with Dr. Quiles, however has not needed a transfusion since she had a stem cell treatment at [facility] in May 2019. Will transfuse 2 units prbc recheck in AM. Plt normal. 3. hyponatremia (chronic), hypokalemia (replete) 4. DMt2 - resume home meds at [place]. continue SSI. 5. HTN - stable DVT ppx: asa 81 mg bid This patient was seen by Sameer Hernandez PA-C under the supervision of Dr. Pang. <Levy Pang F - Last Filed: 12/19/19 18:13> Vitals/I&O's: Vital Signs Temp Pulse Resp BP Pulse Ox 98.4 F 96 16 127/58 H 98 12/19/19 17:55 12/19/19 17:55 12/19/19 17:55 12/19/19 17:55 12/19/19 17:55 Oxygen Flow Rate (L/min) 6 Oxygen Delivery Method Room Air Weight: 153 lb 7.068 oz Body Mass Index (BMI) 30.9 Finger Stick Blood Glucose 221 Intake and Output for Last 24 Hours 12/17/19 12/18/19 12/19/19 23:59 23:59 23:59 Intake Total 4821.75 / 4821.75 3285.25 / 3285.25 Output Total 0 / 0 1550 / 1550 Balance 4821.75 / 4821.75 1735.25 / 1735.25 Laboratory Results 12/19/19 05:25: WBC 8.7, RBC 1.92 L, Hgb 6.9 L, Hct 20.5 L, MCV 106.8 H, MCH 35.9 H, MCHC 33.7, RDW Std Deviation 49.3 H, RDW Coeff of Delma 12.9, Plt Count 159, MPV 8.9 12/19/19 05:25: Sodium 131 L, Potassium 3.4 L, Chloride 94 L, Carbon Dioxide 32.0, Anion Gap 5, BUN 28 H, Creatinine 1.07 H, Estim Creat Clear Calc 50.68, Est GFR (MDRD) Af Amer 65, Est GFR (MDRD) Non-Af 53 L, BUN/Creatinine Ratio 26.2 H, Glucose 107 H, Calcium 8.4 L 12/19/19 10:40: Blood Type A POSITIVE, Antibody Screen NEGATIVE, Crossmatch See Detail 12/19/19 10:40: Crossmatch See Detail 12/19/19 11:25: COVID-19 ([facility]) Not Detected 12/19/19 16:46: POC Glucose 128 H Current Medications Acetaminophen (Acetaminophen 500 Mg Tablet) 1,000 mg PO Q8 [facility] Last Admin: 12/19/19 13:49 Dose: 1,000 mg Documented by: Acyclovir (Acyclovir 200 Mg Capsule) 400 mg PO BID [facility] Last Admin: 12/19/19 08:16 Dose: 400 mg Documented by: Aspirin (Aspirin 81 Mg Tab.Chew) 81 mg PO BIDCM [facility] Last Admin: 12/19/19 17:10 Dose: 81 mg Documented by: Cholecalciferol (Cholecalciferol (Vit D3) 1,000 Unit (25mcg)) 2,000 unit PO DAILY [facility] Last Admin: 12/19/19 08:17 Dose: 2,000 unit Documented by: Dextrose (Dextrose 50%-Water 25 Gm/50 Ml Disp.Syrin) 0 gm IV X1 PRN; Protocol PRN Reason: Hypoglycemia Enteral Nutritional Formula (Ensure Surgery 237 Ml Liquid) 237 ml PO TIDCM [facility] Last Admin: 12/19/19 17:10 Dose: 237 ml Documented by: Famotidine (Famotidine 20 Mg Tablet) 20 mg PO DAILY [facility] Last Admin: 12/19/19 08:17 Dose: 20 mg Documented by: Glucagon (Glucagon 1 Mg/Ml Syringe) 1 mg IM .X1 PRN PRN Reason: Hypoglycemia Sodium Chloride () 250 mls @ 15 mls/hr IV .[id number] PRN PRN Reason: Additional IVPB Infusion Insulin Human Lispro (Insulin Lispro 100 Unit/Ml Insuln.Pen) 0 unit SC ACHS [facility]; Protocol Last Admin: 12/19/19 17:03 Dose: Not Given Documented by: Linagliptin (Linagliptin 5 Mg Tablet) 5 mg PO DAILY [facility] Last Admin: 12/19/19 08:17 Dose: 5 mg Documented by: Morphine Sulfate (Morphine 2 Mg/Ml Syringe) 2 - 4 mg IV Q2H PRN PRN PRN Reason: Pain Score 4-10 Ondansetron HCl (Ondansetron 8 Mg Tablet) 8 mg PO Q8H PRN PRN PRN Reason: NAUSEA Ondansetron HCl (Ondansetron 4 Mg/2 Ml Vial) 4 mg IV Q8H PRN PRN PRN Reason: NAUSEA Oxycodone HCl (Oxycodone 5 Mg Tablet) 5 - 10 mg PO Q4H PRN PRN PRN Reason: Pain Score 4-10 Last Admin: 12/19/19 13:52 Dose: 5 mg Documented by: Promethazine HCl (Promethazine 25 Mg Tablet) 25 mg PO Q6H PRN PRN PRN Reason: NAUSEA Promethazine HCl (Promethazine 25 Mg/Ml Syringe) 12.5 mg IM Q6H PRN PRN; Protocol PRN Reason: NAUSEA/VOMITING Senna/Docusate Sodium (Senna/Docusate Sodium 1 Tablet) 2 tablet PO BID [facility] Last Admin: 12/19/19 08:17 Dose: 2 tablet Documented by: Sodium Chloride (0.9% Nacl Peripheral Flush Adult/Peds) 5 - 15 ml IV UD PRN PRN Reason: SALINE FLUSH Last Admin: 12/19/19 04:58 Dose: 10 ml Documented by: STROKE Vital Signs/Narrative: Vital Signs Temp Pulse Resp BP Pulse Ox 12/19/19 17:55 98.4 F 96 16 127/58 H 98 12/19/19 17:40 98.9 F 105 H 16 118/55 L 99 12/19/19 16:24 98.3 F 96 16 103/54 L 100 12/19/19 15:24 98.6 F 97 16 114/58 L 100 12/19/19 14:24 98.2 F 98 16 102/50 L 94 Addendum: Dr. Pang I personally examined the patient and reviewed the chart. I agree with the above. 74-year-old female with a history of leukemia status post right total hip replacement. Pain management per orthopedic surgery, she does feel better today. She is anemic today which is likely both a combination of her leukemia and acute blood loss secondary to surgery, she denies any lightheadedness or dizziness secondary to her anemia. She is being transfused 2 units of PRBCs and will plan recheck in the morning. She does state that she has had transfusions in the past because of this issue. Right now she is stable and can likely continue with DVT prophylaxis per primary service at this time. Inpatient E&M: 89722 Subs Hosp L2
[2019-12-19] MEDS: Hydrocortisone Sod Succinate 100 MG/2 ML Vial 25 MG IV (13:49)
[2019-12-19 16:51] LABS: Bedside Glucose 128 mg/dL (70-110)
--- NOTE | 2019-12-19 19:44 | NURSING ---
late entry from 1100: pt normally sees Dr Lopez as her collar turner/oncologist MD through [facility], office number is [phone]. updated on pt status and PRBC transfusion. verified pre-meds normally administered with PRBC transfusions and that blood products are to be leukoreduced and irradiated, they do not need to be CMV-negative. discussed that if more hematology issues come up, Dr Quiles is familiar with patient and is agreeable to consulation if necessary. Dr Pang and PAVITHRA Buckley aware of all above.
[2019-12-19 21:35] LABS: Bedside Glucose 127 mg/dL (70-110)
[2019-12-20 03:31] VITALS: BP 123/69; PULSE 98; RESP 17; TEMP 36.5; O2SAT 96
[2019-12-20] MEDS: oxyCODONE 5 MG Tablet PO ×3 (03:34→14:03)
[2019-12-20] MEDS: Acetaminophen 500 MG Tablet 1000 MG PO ×2 (06:32→13:58)
--- NOTE | 2019-12-20 06:49 | PN.ORTHO_ITS ---
Subjective: The patient was sitting in bed upon examination. Patient denies any chest pain, shortness of breath, dizziness, lightheadedness, nausea or vomiting, or calf pain. Pain is controlled on medications. No adverse overnight events. Patient did receive 2 units of packed red blood cells yesterday due to drop in hemoglobin to 6.9. Patient is doing very well today and her blood pressure has been more stabilized. She states the pain is been well managed with her right hip. Plan is for patient to go to transitional care unit. I would like physic al therapy to also work with her today prior to discharge. Objective: Vital signs stable and afebrile. Blood pressure stabilized Patient is able to plantarflex and dorsiflex actively. Sensation is intact to light touch to saphenous, sural, superficial and deep peroneal, and tibial distribution. Main dressing is clean dry and intact. Pin site dressing has been stable with only 2 small drops of drainage Negative Homans bilaterally, negative signs and symptoms of DVT. - Physical Exam Vitals/I&O's: Vital Signs Temp Pulse Resp BP Pulse Ox 97.7 F L 98 17 123/69 H 96 12/20/19 03:31 12/20/19 03:31 12/20/19 03:31 12/20/19 03:31 12/20/19 03:31 Oxygen Flow Rate (L/min) 6 Oxygen Delivery Method Room Air Weight: 69.6 kg Body Mass Index (BMI) 30.9 Finger Stick Blood Glucose 221 Intake and Output for Last 24 Hours 12/18/19 12/19/19 12/20/19 23:59 23:59 23:59 Intake Total 4821.75 / 4821.75 3685.25 / 4085.25 900 / 900 Output Total 0 / 0 1550 / 1550 1100 / 1100 Balance 4821.75 / 4821.75 2135.25 / 2535.25 -200 / -200 General: Alert, Oriented x3, Cooperative, No apparent distress Laboratory Results 12/19/19 10:40: Blood Type A POSITIVE, Antibody Screen NEGATIVE, Crossmatch See Detail 12/19/19 10:40: Crossmatch See Detail 12/19/19 11:25: COVID-19 ([facility]) Not Detected 12/19/19 16:46: POC Glucose 128 H 12/19/19 21:22: POC Glucose 127 H Current Medications Acetaminophen (Acetaminophen 500 Mg Tablet) 1,000 mg PO Q8 [facility] Last Admin: 12/20/19 06:32 Dose: 1,000 mg Documented by: Acyclovir (Acyclovir 200 Mg Capsule) 400 mg PO BID [facility] Last Admin: 12/19/19 21:20 Dose: 400 mg Documented by: Aspirin (Aspirin 81 Mg Tab.Chew) 81 mg PO BIDCM [facility] Last Admin: 12/19/19 17:10 Dose: 81 mg Documented by: Cholecalciferol (Cholecalciferol (Vit D3) 1,000 Unit (25mcg)) 2,000 unit PO DAILY [facility] Last Admin: 12/19/19 08:17 Dose: 2,000 unit Documented by: Dextrose (Dextrose 50%-Water 25 Gm/50 Ml Disp.Syrin) 0 gm IV X1 PRN; Protocol PRN Reason: Hypoglycemia Enteral Nutritional Formula (Ensure Surgery 237 Ml Liquid) 237 ml PO TIDCM [facility] Last Admin: 12/19/19 17:10 Dose: 237 ml Documented by: Famotidine (Famotidine 20 Mg Tablet) 20 mg PO DAILY [facility] Last Admin: 12/19/19 08:17 Dose: 20 mg Documented by: Glucagon (Glucagon 1 Mg/Ml Syringe) 1 mg IM .X1 PRN PRN Reason: Hypoglycemia Sodium Chloride () 250 mls @ 15 mls/hr IV .[id number] PRN PRN Reason: Additional IVPB Infusion Insulin Human Lispro (Insulin Lispro 100 Unit/Ml Insuln.Pen) 0 unit SC ACHS [facility]; Protocol Last Admin: 12/20/19 06:35 Dose: Not Given Documented by: Linagliptin (Linagliptin 5 Mg Tablet) 5 mg PO DAILY [facility] Last Admin: 12/19/19 08:17 Dose: 5 mg Documented by: Morphine Sulfate (Morphine 2 Mg/Ml Syringe) 2 - 4 mg IV Q2H PRN PRN PRN Reason: Pain Score 4-10 Ondansetron HCl (Ondansetron 8 Mg Tablet) 8 mg PO Q8H PRN PRN PRN Reason: NAUSEA Ondansetron HCl (Ondansetron 4 Mg/2 Ml Vial) 4 mg IV Q8H PRN PRN PRN Reason: NAUSEA Oxycodone HCl (Oxycodone 5 Mg Tablet) 5 - 10 mg PO Q4H PRN PRN PRN Reason: Pain Score 4-10 Last Admin: 12/20/19 03:34 Dose: 10 mg Documented by: Promethazine HCl (Promethazine 25 Mg Tablet) 25 mg PO Q6H PRN PRN PRN Reason: NAUSEA Promethazine HCl (Promethazine 25 Mg/Ml Syringe) 12.5 mg IM Q6H PRN PRN; Protocol PRN Reason: NAUSEA/VOMITING Senna/Docusate Sodium (Senna/Docusate Sodium 1 Tablet) 2 tablet PO BID [facility] Last Admin: 12/19/19 21:20 Dose: 2 tablet Documented by: Sodium Chloride (0.9% Nacl Peripheral Flush Adult/Peds) 5 - 15 ml IV UD PRN PRN Reason: SALINE FLUSH Last Admin: 12/19/19 21:20 Dose: 10 ml Documented by: Medical Necessity - Tobacco Use Smoking Status: Never smoker Tobacco Use: Non-smoker Assessment/Plan All Active Problems Acute back pain (Acute) 1. S/P right direct anterior total hip arthroplasty POD #2 2. Continue Pain Medications: Tylenol and oxycodone 3. DVT Prophylaxis: Take 81 mg aspirin twice daily for 4 weeks postoperatively for DVT prophylaxis 4. PT/OT: Patient is weightbearing as tolerated. I would like physical therapy to work with patient today prior to discharge 5. Acute on chronic anemia with blood loss secondary to surgery without any intraoperative complications. Lab work has not been obtained yet but yesterday H & H: 6.10/26.5, patient did receive 2 units packed red blood cells. Patient does follow derrick man/oncologist through the [facility]. Patient is also seen Dr. Quiles and is agreeable to consultation if necessary. 6. Continue postoperative medical management per medicine: Patient is doing well today and we are currently waiting on lab work 7. Encouraged Incentive Spirometry 8. Disposition: Plan is for discharge to transitional care unit today dependent upon lab work. I would like physical therapy to work with patient today prior to discharge. Prescriptions will be attached to chart. Patient will follow-up per postop instructions. I have reviewed the [place] Automated Rx Reporting System (OARRS) report for this patient for refill pattern and other prescriber involvement as part of the appropriate surveillance for the provision of acute and chronic controlled medications. The report was requested and reviewed on the date of this entry and was considered in the prescribing process.
[2019-12-20 06:51] LABS: Bedside Glucose 92 mg/dL (70-110)
--- NOTE | 2019-12-20 06:55 | PCM.DC.THR ---
Discharge Diet: No Restrictions Discharge Activity: May Not Drive - while taking narcotic pain medications. May shower in (days): 1 - Dressings must be intact to skin. Turn dressings away from water Ice area for (Minutes): 20 - Every 1-2 hours while awake Weight Bearing Status: Weight bearing as tolerated - With walker Elevate: Operative Extremity Additional Activity Instructions:: Wear elastic stockings for 2 weeks. DO NOT use alcohol with narcotic pain medication. DO NOT make important decisions while taking narcotic medication. If you have problems with taking your medication (rash, itching, nausea, etc.) call the office at once. Call your doctor if your incision/area has: Increased Pain/ Swelling, Increased Redness, Foul Smelling Discharge Call your doctor if you observe: Fever of 101 or Higher Remove Dressing in (days):: 4 - Okay to remove dressing on December 24, 2019 Additional Instructions: Follow orthopedic postop instructions. Allergies/Adverse Reactions: Allergies adhesive tape Allergy (Verified 12/18/19 09:41) Rash cefixime Allergy (Verified 12/18/19 09:41) Rash piperacillin [From Zosyn] Allergy (Verified 12/18/19 09:41) Rash tazobactam [From Zosyn] Allergy (Verified 12/18/19 09:41) Rash vancomycin Allergy (Verified 12/18/19 09:41) Rash diphenhydramine [From Benadryl] Adverse Reaction (Verified 12/18/19 09:41) hyper Medications to take at Discharge Acyclovir 400 mg PO BID 06/05/18 Ondansetron [Zofran] 8 mg PO Q8H PRN PRN 06/29/18 proMETHazine tablet [Phenergan tablet] 25 mg PO Q6H PRN PRN 09/22/18 Cholecalciferol (Vitamin D3) [Vitamin D3] 2,000 unit PO DAILY 11/27/19 Multivitamin with Minerals [Multiple Vitamin] 2 ea PO DAILY 11/27/19 Sitagliptin Phosphate [Januvia] 100 mg PO DAILY 11/27/19 Triamterene 37.5MG/Hctz 25MG [Dyazide (G)] 1 cap PO DAILY 12/18/19 Acetaminophen [Tylenol] 1,000 mg PO Q8 14 Days tablet 12/20/19 Aspirin [Aspirin, Baby] 81 mg PO BIDCM 30 Days tab.chew 12/20/19 Famotidine [Pepcid] 20 mg PO DAILY tablet 12/20/19 Oxycodone [Oxyir] 5 - 10 mg PO Q4H PRN PRN 3 Days #30 tab 12/20/19 Senna/Docusate Sodium [Senokot-S] 2 tablet PO BID tablet 12/20/19 The following prescriptions were given: Oxycodone [Oxyir] 5 - 10 mg PO Q4H PRN PRN 3 Days #30 tab PRN Reason: Pain Score 4-10 Prescription Printed Primary Care Physician: Maegan Benavides NP, CAPTION WRITER-C [Primary Care Provider] - Test Results: Test results from this visit will be discussed in further detail at your follow-up appointment, if applicable. Please Follow Up With: Rosita Hollingsworth NP, CAPTION WRITER-C When: 01/01/20 @ 9:15 am
[2019-12-20 07:45] VITALS: BP 124/56; PULSE 98; RESP 16; TEMP 36.8; O2SAT 97
[2019-12-20 08:12] LABS: Hematocrit 28.5 % (37-47); Hemoglobin 9.6 g/dL (12.0-15.0); Mean Corp Hgb Conc 33.7 g/dL (32-36); Mean Corpuscular Hgb 32.9 pg (27.0-32.0); Mean Corpuscular Volume 97.6 fL (81-99); POSITIVE MORPHOLOGY YES; Platelet Count 141 K/mm3 (150-450); RBC Distribution Width CV 20.3 % (11.6-14.6); RBC Distribution Width SD 71.6 fl (35.1-43.9); Red Blood Count 2.92 M/mm3 (4.2-5.4); White Blood Count 6.6 K/mm3 (4.4-11.0)
[2019-12-20 08:14] LABS: Scan Indicated on CBC? Y/N YES- FLAGS NOTED
[2019-12-20 08:15] LABS: Anion Gap 5 (5-15); BUN 31 mg/dL (7-18); BUN/Creat Ratio 29.2 RATIO (10-20); Calcium,Total 8.9 mg/dL (8.5-10.1); Chloride 99 mmol/L (98-107); Creatinine, Serum 1.06 mg/dL (0.55-1.02); EST Glomerular Filtration Rate 54 mL/min (>60); Est Glom Filt Rate - Afr Amer 65 mL/min (>60); Estimated Creatinine Clearance 51.16 ml/min; Glucose 101 mg/dL (74-106); Potassium 3.7 mmol/L (3.5-5.1); Sodium Level 133 mmol/L (136-145)
[2019-12-20] MEDS: Aspirin 81 MG TAB.CHEW PO (09:19)
[2019-12-20] MEDS: Ensure Surgery 237 ML LIQUID PO ×2 (09:20→11:45)
[2019-12-20] MEDS: Famotidine 20 MG Tablet PO (09:21)
[2019-12-20] MEDS: Acyclovir 200 MG Capsule 400 MG PO (09:21)
[2019-12-20] MEDS: LINAGLIPTIN 5 MG TABLET PO (09:21)
[2019-12-20 11:46] LABS: Bedside Glucose 123 mg/dL (70-110)
--- NOTE | 2019-12-20 13:17 | PCM.PN.HOSP ---
<Sameer Hernandez PA - Last Filed: 12/20/19 13:17> Reason for Visit: Anemia Subjective: Doing well, no acute issues. Some pain but patient states it is tolerable. No fevers or chills. No cough or shortness of breath. No lightheadedness or dizziness. No omer bleeding. Vitals/I&O's: Vital Signs Temp Pulse Resp BP Pulse Ox 98.2 F 98 16 124/56 H 97 12/20/19 07:45 12/20/19 07:45 12/20/19 07:45 12/20/19 07:45 12/20/19 07:45 Oxygen Flow Rate (L/min) 6 Oxygen Delivery Method Room Air Weight: 153 lb 7.068 oz Body Mass Index (BMI) 30.9 Finger Stick Blood Glucose 221 Intake and Output for Last 24 Hours 12/18/19 12/19/19 12/20/19 23:59 23:59 23:59 Intake Total 4821.75 / 4821.75 3685.25 / 4085.25 1200 / 1200 Output Total 0 / 0 1550 / 1550 1100 / 1100 Balance 4821.75 / 4821.75 2135.25 / 2535.25 100 / 100 General: Alert, Oriented x3, Cooperative HEENT: Atraumatic, PERRLA, EOMI, Normocephalic Neck: Supple, No JVD, Negative Carotid Bruits Lungs: Clear to auscultation, Normal air movement Cardiovascular: Regular rate, No murmurs Abdomen: Bowel Sounds Present, Soft, Non Tender Extremities: No edema, Capillary Refill Less than 3 Seconds Skin: No rashes, No breakdown Musculoskeletal: No Tenderness to Palpation of Joints or Extremities Neurological: Cranial nerves II-XII grossly intact Psych/Mental Status: Normal Affect, Appropriate, Alert and oriented to time, place, person, mood and affect Laboratory Results 12/19/19 10:40: Crossmatch See Detail 12/19/19 11:25: COVID-19 (CORKY) Not Detected 12/19/19 16:46: POC Glucose 128 H 12/19/19 21:22: POC Glucose 127 H 12/20/19 06:34: POC Glucose 92 12/20/19 06:39: WBC Cancelled, Corrected WBC Cancelled, RBC Cancelled, Hgb Cancelled, Hct Cancelled, MCV Cancelled, MCH Cancelled, MCHC Cancelled, RDW Std Deviation Cancelled, RDW Coeff of Delma Cancelled, Plt Count Cancelled, MPV Cancelled, Diff Path Review Cancelled 12/20/19 06:39: Sodium 133 L, Potassium 3.7, Chloride 99, Carbon Dioxide 29.0, Anion Gap 5, BUN 31 H, Creatinine 1.06 H, Estim Creat Clear Calc 51.16, Est GFR (MDRD) Af Amer 65, Est GFR (MDRD) Non-Af 54 L, BUN/Creatinine Ratio 29.2 H, Glucose 101, Calcium 8.9 12/20/19 07:50: WBC 6.6, RBC 2.92 L, Hgb 9.6 L, Hct 28.5 L, MCV 97.6 D, MCH 32.9 H, MCHC 33.7, RDW Std Deviation 71.6 H, RDW Coeff of Delma 20.3 H, Plt Count 141 L, MPV 9.0, Differential Comment COMMENT 12/20/19 11:41: POC Glucose 123 H Current Medications Acetaminophen (Acetaminophen 500 Mg Tablet) 1,000 mg PO Q8 [facility] Last Admin: 12/20/19 06:32 Dose: 1,000 mg Documented by: Acyclovir (Acyclovir 200 Mg Capsule) 400 mg PO BID [facility] Last Admin: 12/20/19 09:21 Dose: 400 mg Documented by: Aspirin (Aspirin 81 Mg Tab.Chew) 81 mg PO BIDCM [facility] Last Admin: 12/20/19 09:19 Dose: 81 mg Documented by: Cholecalciferol (Cholecalciferol (Vit D3) 1,000 Unit (25mcg)) 2,000 unit PO DAILY [facility] Last Admin: 12/20/19 09:21 Dose: 2,000 unit Documented by: Dextrose (Dextrose 50%-Water 25 Gm/50 Ml Disp.Syrin) 0 gm IV X1 PRN; Protocol PRN Reason: Hypoglycemia Enteral Nutritional Formula (Ensure Surgery 237 Ml Liquid) 237 ml PO TIDCM [facility] Last Admin: 12/20/19 11:45 Dose: 237 ml Documented by: Famotidine (Famotidine 20 Mg Tablet) 20 mg PO DAILY [facility] Last Admin: 12/20/19 09:21 Dose: 20 mg Documented by: Glucagon (Glucagon 1 Mg/Ml Syringe) 1 mg IM .X1 PRN PRN Reason: Hypoglycemia Sodium Chloride () 250 mls @ 15 mls/hr IV .[id number] PRN PRN Reason: Additional IVPB Infusion Insulin Human Lispro (Insulin Lispro 100 Unit/Ml Insuln.Pen) 0 unit SC ACHS [facility]; Protocol Last Admin: 12/20/19 11:46 Dose: Not Given Documented by: Linagliptin (Linagliptin 5 Mg Tablet) 5 mg PO DAILY [facility] Last Admin: 12/20/19 09:21 Dose: 5 mg Documented by: Morphine Sulfate (Morphine 2 Mg/Ml Syringe) 2 - 4 mg IV Q2H PRN PRN PRN Reason: Pain Score 4-10 Ondansetron HCl (Ondansetron 8 Mg Tablet) 8 mg PO Q8H PRN PRN PRN Reason: NAUSEA Ondansetron HCl (Ondansetron 4 Mg/2 Ml Vial) 4 mg IV Q8H PRN PRN PRN Reason: NAUSEA Oxycodone HCl (Oxycodone 5 Mg Tablet) 5 - 10 mg PO Q4H PRN PRN PRN Reason: Pain Score 4-10 Last Admin: 12/20/19 09:21 Dose: 10 mg Documented by: Promethazine HCl (Promethazine 25 Mg Tablet) 25 mg PO Q6H PRN PRN PRN Reason: NAUSEA Promethazine HCl (Promethazine 25 Mg/Ml Syringe) 12.5 mg IM Q6H PRN PRN; Protocol PRN Reason: NAUSEA/VOMITING Senna/Docusate Sodium (Senna/Docusate Sodium 1 Tablet) 2 tablet PO BID [facility] Last Admin: 12/20/19 09:21 Dose: Not Given Documented by: Sodium Chloride (0.9% Nacl Peripheral Flush Adult/Peds) 5 - 15 ml IV UD PRN PRN Reason: SALINE FLUSH Last Admin: 12/19/19 21:20 Dose: 10 ml Documented by: Medical Necessity - Tobacco Use Smoking Status: Never smoker Tobacco Use: Non-smoker Assessment/Plan All Active Problems Acute back pain (Acute) 1. s/p right total hip - POD #1. doing well minimal pain. PTOT when appropriate. 2. acute on chronic anemia 2/2 hx leukemia -improved with 2 units packed red blood cells. Discussed with Dr. Quiles last night patient may follow-up in the office as an outpatient, ideally in 2 weeks. Repeat CBC at TCU in 3 days. 3. hyponatremia (chronic, stable), hypokalemia (improved). BMP in 5 days. 4. DMt2 - resume home meds at mt. continue SSI. 5. HTN - stable DVT ppx: asa 81 mg bid This patient was seen by Sameer Hernandez PA-C under the supervision of Dr. Pang. <Levy Pang F - Last Filed: 12/20/19 14:34> Vitals/I&O's: Vital Signs Temp Pulse Resp BP Pulse Ox 98.2 F 98 16 124/56 H 97 12/20/19 07:45 12/20/19 07:45 12/20/19 07:45 12/20/19 07:45 12/20/19 07:45 Oxygen Flow Rate (L/min) 6 Oxygen Delivery Method Room Air Weight: 153 lb 7.068 oz Body Mass Index (BMI) 30.9 Finger Stick Blood Glucose 221 Intake and Output for Last 24 Hours 12/18/19 12/19/19 12/20/19 23:59 23:59 23:59 Intake Total 4821.75 / 4821.75 3685.25 / 4085.25 1200 / 1200 Output Total 0 / 0 1550 / 1550 1100 / 1100 Balance 4821.75 / 4821.75 2135.25 / 2535.25 100 / 100 Laboratory Results 12/19/19 10:40: Crossmatch See Detail 12/19/19 16:46: POC Glucose 128 H 12/19/19 21:22: POC Glucose 127 H 12/20/19 06:34: POC Glucose 92 12/20/19 06:39: WBC Cancelled, Corrected WBC Cancelled, RBC Cancelled, Hgb Cancelled, Hct Cancelled, MCV Cancelled, MCH Cancelled, MCHC Cancelled, RDW Std Deviation Cancelled, RDW Coeff of Delma Cancelled, Plt Count Cancelled, MPV Cancelled, Diff Path Review Cancelled 12/20/19 06:39: Sodium 133 L, Potassium 3.7, Chloride 99, Carbon Dioxide 29.0, Anion Gap 5, BUN 31 H, Creatinine 1.06 H, Estim Creat Clear Calc 51.16, Est GFR (MDRD) Af Amer 65, Est GFR (MDRD) Non-Af 54 L, BUN/Creatinine Ratio 29.2 H, Glucose 101, Calcium 8.9 12/20/19 07:50: WBC 6.6, RBC 2.92 L, Hgb 9.6 L, Hct 28.5 L, MCV 97.6 D, MCH 32.9 H, MCHC 33.7, RDW Std Deviation 71.6 H, RDW Coeff of Delma 20.3 H, Plt Count 141 L, MPV 9.0, Differential Comment COMMENT 12/20/19 11:41: POC Glucose 123 H Addendum: Dr. Pang I personally examined the patient and reviewed the chart. I agree with the above. 74-year-old female with a history of leukemia status post right total hip replacement. Pain management per orthopedic surgery, she does feel better today. She is anemic today which is likely both a combination of her leukemia and acute blood loss secondary to surgery, she denies any lightheadedness or dizziness secondary to her anemia. She is being transfused 2 units of PRBCs and will plan recheck in the morning. She does state that she has had transfusions in the past because of this issue. Right now she is stable and can likely continue with DVT prophylaxis per primary service at this time. 12/20/2019: Doing well. She continues to be asymptomatic from her initial episode of anemia yesterday. Hemoglobin today is 9.6 she will need to follow-up as an outpatient with her oncologist and her PCP for further monitoring. From a medical standpoint she is okay for discharge home today. Inpatient E&M: 41524 Subs Hosp L2
[2019-12-20 14:00] VITALS: BP 128/63; PULSE 111; RESP 16; TEMP 36.9; O2SAT 98
--- NOTE | 2019-12-20 15:02 | NURSING ---
report called to Silvia in TCU, pt transported via wheelchair and pt daughter Cora updated on pt transfer.
== END 2019-12-20 14:14 | disposition skilled nursing facility (03) | DRG 470 ==
LOC: SDC 10:03 → MS3 10:03
PROVIDERS: Physician Assistant; Admitting Provider Specialist; PCP Nurse Practitioner Family; Referring Provider Specialist; Visit Provider Family Medicine
PROC: 8E0Y0CZ Robotic Assisted Procedure of Lower Extremity, Open Approach (ICD-10-PCS; CPT 27130; principal; 2019-12-18 10:30)
DX: M16.7 Other unilateral secondary osteoarthritis of hip (principal); C95.90 Leukemia, unspecified not having achieved remission; D62 Acute posthemorrhagic anemia; E87.1 Hypo-osmolality and hyponatremia; Z94.81 Bone marrow transplant status; M21.751 Unequal limb length (acquired), right femur; I10 Essential (primary) hypertension; M10.9 Gout, unspecified; E11.65 Type 2 diabetes mellitus with hyperglycemia; E87.6 Hypokalemia; Z87.01 Personal history of pneumonia (recurrent); Z86.718 Personal history of other venous thrombosis and embolism; Z79.82 Long term (current) use of aspirin; Z79.84 Long term (current) use of oral hypoglycemic drugs; Z79.899 Other long term (current) drug therapy
CPT/HCPCS: 36415; 73501; 73502; 76000; 80048; 82962; 85027; 86850; 86900; 86901; 86920; 86922; 87081; 87426; 87635; 88305; 88311; 88312; 93005; 97110; 97162; 97166; 97530; 97535; 99251; C1776; C9803; J7040; J7120; P9040; A4216; G0463; J2405; U0002

== ENCOUNTER 2019-12-20 14:27 | Inpatient (IN) | payer MEDICARE, BC, SELFPAY ==
[2019-12-18 16:28] VITALS: BMI 30.9
[2019-12-20 14:36] VITALS: BP 139/70; PULSE 115; RESP 18; TEMP 36.8; O2SAT 94
[2019-12-20 15:21] VITALS: BMI 30.9
--- NOTE | 2019-12-20 16:36 | CASEMGMT ---
Social Work Discussed code status with pt. Pt confirmed full code. MOLST form reviewed, communication to Dr, placed in chart. Karly Marquez, D[employer]INTENA[employer]CE [employer]
[2019-12-20 16:46] LABS: Bedside Glucose 133 mg/dL (70-110)
[2019-12-20] MEDS: Acyclovir 200 MG Capsule 400 MG PO (18:11)
[2019-12-20] MEDS: Glucerna Shake 120 ML LIQUID PO ×2 (18:11→19:59)
[2019-12-20] MEDS: Aspirin 81 MG TAB.CHEW PO (18:24)
[2019-12-20 18:31] VITALS: PULSE 103; RESP 18; O2SAT 97
--- NOTE | 2019-12-20 18:43 | HP.PCM_ITS ---
Problem List (1) Debility Status: Acute (2) Osteoarthritis of right hip Status: Chronic (3) Gout Status: Chronic (4) Osteoarthritis Status: Chronic (5) Leukemia Status: Chronic (6) DVT (deep venous thrombosis) Status: Chronic (7) Gastrointestinal bleed Status: Chronic (8) Ppywf-kznobu-fmoj disease Status: Chronic (9) Hypomagnesemia Status: Chronic (10) Diabetes mellitus Status: Chronic (11) Vitamin D deficiency Status: Chronic (12) Insomnia Status: Chronic (13) Hypertension Status: Chronic History of Present Illness Date of Admission: 12/20/19 Chief Complaint: Here for rehabilitation, strengthening, prior to discharge home alone. The patient is a 74 year old Female with below past medical history with followin12/11/19 EKG normal sinus rhythm, old inferior infarct. 12/18/19 Dr. Chang performed right direct anterior robotic assisted minimally invasive total hip replacement. 12/18/19 Tradjenta, sliding scale insulin for Diabetes Mellitus II. Hold Triamterene/HCTZ for now, blood pressure okay. Aspirin 81MG BID for DVT prophylaxis, patient had GI bleed on Lovenox and Eliquis in the past. 12/19/19 Tylenol, Oxycodone for pain. Aspirin 81MG BID x 4 weeks for DVT prophylaxis, end date 01/17/20. Hypotension, and anemic, Hemoglobin 6.9. Transfuse 2 units PRBC secondary to leukemia, and acute blood loss from surgery. Patient has had transfusions in the past. 12/20/19 Admit to TCU with debility, here for rehabilitation, strengthening, prior to discharge home alone. Past Medical History Past Medical History (Chronic Problems): Chronic Problems Swelling of right upper extremity (Chronic) Osteoarthritis of right hip (Chronic) Gout (Chronic) Osteoarthritis (Chronic) Leukemia (Chronic) DVT (deep venous thrombosis) (Chronic) Gastrointestinal bleed (Chronic) Icpru-znmfgi-tnrx disease (Chronic) Hypomagnesemia (Chronic) Diabetes mellitus (Chronic) Vitamin D deficiency (Chronic) Insomnia (Chronic) Hypertension (Chronic) Acute myeloid leukemia (Chronic) Pancytopenia (Chronic) Allergies adhesive tape Allergy (Verified 12/18/19 09:41) Rash cefixime Allergy (Verified 12/18/19 09:41) Rash piperacillin [From Zosyn] Allergy (Verified 12/18/19 09:41) Rash tazobactam [From Zosyn] Allergy (Verified 12/18/19 09:41) Rash vancomycin Allergy (Verified 12/18/19 09:41) Rash diphenhydramine [From Benadryl] Adverse Reaction (Verified 12/18/19 09:41) hyper Home Medications: Ambulatory Orders Medication Instructions Recorded Acyclovir 400 mg PO BID 06/05/18 Ondansetron [Zofran] 8 mg PO Q8H PRN PRN 06/29/18 proMETHazine tablet [Phenergan 25 mg PO Q6H PRN PRN 09/22/18 tablet] Cholecalciferol (Vitamin D3) 2,000 unit PO DAILY 11/27/19 [Vitamin D3] Multivitamin with Minerals 2 ea PO DAILY 11/27/19 [Multiple Vitamin] Sitagliptin Phosphate [Januvia] 100 mg PO DAILY 11/27/19 Triamterene 37.5MG/Hctz 25MG 1 cap PO DAILY 12/18/19 [Dyazide (G)] Acetaminophen [Tylenol] 1,000 mg PO Q8 12/20/19 Aspirin [Aspirin, Baby] 81 mg PO BIDCM 12/20/19 Famotidine [Pepcid] 20 mg PO DAILY 12/20/19 Oxycodone [Oxyir] 5 - 10 mg PO Q4H PRN PRN 3 Days 12/20/19 #30 tab Senna/Docusate Sodium [Senokot-S] 2 tab PO BID 12/20/19 Surgical History: hysterectomy, - - 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 Lives: Alone Smoking Status: Never smoker Tobacco Use: Non-smoker Alcohol: None Drugs: None - *Family History Paternal History Items: No pertinent history Review of Systems Constitutional: Denies: Chills, Fever, Weight Change HEENT: Denies: Head Aches, Sinus Congestion, Sinus Drainage Cardiovascular: Denies: Chest Pain, Palpitations Respiratory: Denies: Cough, Shortness of breath at rest, Sputum production Gastrointestinal: Denies: Abdominal Pain, Nausea, Vomiting Genitourinary: Denies: Dysuria Musculoskeletal: Denies: Joint Pain, Joint Tenderness Skin: Denies: Rash, Wounds Neurological: Denies: Numbness, Tingling, Focal weakness Psychiatric: Denies: Anxiety, Depression, Homicidal Ideations, Suicidal Ideations Hematologic/ Lymphatic: Denies: Easy Bruising, Easy Bleeding VTE Information - Inpt Only VTE Present on Admission: No VTE Mechan Device Prophylaxis: Knee High SOHAIL Hose VTE Pharm Prophylaxis ordered?: Yes Patient Problems: Active and Suspected Problems Debility (Acute) - Physical Exam Vitals/I&O's: Vital Signs Temp Pulse Resp BP Pulse Ox 98.2 F 103 H 18 139/70 H 97 12/20/19 14:36 12/20/19 18:31 12/20/19 18:31 12/20/19 14:36 12/20/19 18:31 Oxygen Delivery Method Room Air Weight: 69.536 kg Body Mass Index (BMI) 30.9 Finger Stick Blood Glucose 221 Intake and Output for Last 24 Hours 12/18/19 12/19/19 12/20/19 23:59 23:59 23:59 Intake Total 120 / 120 Balance 120 / 120 General: Alert, Oriented x3, Cooperative HEENT: Atraumatic, PERRLA, EOMI, Normocephalic Neck: Supple, No JVD, Negative Carotid Bruits Lungs: Clear to auscultation, Normal air movement Cardiovascular: Regular rate, No murmurs Abdomen: Bowel Sounds Present, Soft, Non Tender Extremities: No edema, Capillary Refill Less than 3 Seconds Skin: No rashes, No breakdown Musculoskeletal: No Tenderness to Palpation of Joints or Extremities Neurological: Cranial nerves II-XII grossly intact Psych/Mental Status: Normal Affect, Appropriate Laboratory Results 12/20/19 15:50: COVID-19 ([facility]) Pending 12/20/19 16:38: POC Glucose 133 H Current Medications Acetaminophen (Acetaminophen 500 Mg Tablet) 1,000 mg PO Q8 [facility] Acyclovir (Acyclovir 200 Mg Capsule) 400 mg PO BID [facility] Last Admin: 12/20/19 18:11 Dose: 400 mg Documented by: Aspirin ([facility] 81 [facility].Chew) [facility] Last Admin: 12/20/19 18:24 Dose: 81 mg Documented by: Cholecalciferol (Cholecalciferol (Vit D3) 1,000 Unit (25mcg)) 2,000 unit PO DAILY [facility] Famotidine (Famotidine 20 Mg Tablet) 20 mg PO DAILY [facility] Linagliptin (Linagliptin 5 Mg Tablet) 5 mg PO DAILY [facility] Multivitamins/Minerals (Multivitamins,Ther W-Minerals Tablet) 1 tablet PO DAILY@0800 [facility] Nutritional Formula (Lactose Free) (Glucerna Shake 120 Ml Liquid) 120 ml PO 4X/DAY [facility] Last Admin: 12/20/19 18:11 Dose: 120 ml Documented by: Ondansetron HCl (Ondansetron 8 Mg Tablet) 8 mg PO Q8H PRN PRN PRN Reason: NAUSEA Oxycodone HCl (Oxycodone 5 Mg Tablet) 5 - 10 mg PO Q4H PRN PRN PRN Reason: Pain Score 4-10 Promethazine HCl (Promethazine 25 Mg Tablet) 25 mg PO Q6H PRN PRN PRN Reason: NAUSEA Senna/Docusate Sodium (Senna/Docusate Sodium 1 Tablet) 2 tablet PO BID [facility] Last Admin: 12/20/19 18:10 Dose: Not Given Documented by: Triamterene/Hydrochlorothiazide (Triamterene 37.5mg/Hctz 25mg Capsule) 1 cap PO DAILY [facility] Tuberculin PPD (Tuberculin,Purif.Prot.Deriv. 50 Tu/Ml Vial) 5 tu ID [id number] ONE Stop: 12/21/19 10:01 Tuberculin PPD (Tuberculin,Purif.Prot.Deriv. 50 Tu/Ml Vial) 5 tu ID X1 ONE Stop: 12/28/19 10:01 Assessment/Plan All Active Problems Debility (Acute) Acute back pain (Acute) 74 year old female with below past medical history hospitalized for right total hip replacement 12/18/19, complicated by anemia requiring 2 units PRBC transfusion, admitted to TCU with debility, here for rehabilitation, strengthening, prior to discharge home alone. * Debility - PT/OT. * Pain - Tylenol 1000MG Q8H, Oxycodone 10MG Q4H PRN pain (4-10). * Bowel - Miralax 17GM daily, Senna/colace 2 tablets BID, MOM 30ML daily PRN, Dulcolax 10MG CT daily PRN. * Adult immunization - Administer Prevnar 13, Pneumovax 23, Fluzone as appropriate. * DVT prophylaxis - Aspirin 81MG BID thru 01/17/20. * Leukemia - Acyclovir 400MG BID prophylaxis. * Vitamin D deficiency - D3 2000IU daily. * GERD - Famotidine 20MG daily. * Nutrition - Glucerna Shake 120ML 4x/day, MVI daily. * Diabetes Mellitus II - Tradjenta 5MG daily. * Nausea - Zofran 8MG Q8H PRN, Phenergan 25MG Q6H PRN. * Hypertension - Triamterene/HCTZ 37.5/25MG 1 tablet daily.
[2019-12-20] MEDS: Acetaminophen 500 MG Tablet 1000 MG PO (19:58)
[2019-12-20 22:10] LABS: Bedside Glucose 128 mg/dL (70-110)
[2019-12-21] MEDS: oxyCODONE 5 MG Tablet 10 MG PO (03:04)
[2019-12-21 06:08] VITALS: BP 121/65; PULSE 109; RESP 18; TEMP 37.2; O2SAT 97
[2019-12-21] MEDS: Acetaminophen 500 MG Tablet 1000 MG PO ×3 (06:09→21:27)
[2019-12-21] MEDS: Famotidine 20 MG Tablet PO (06:10)
[2019-12-21] MEDS: Acyclovir 200 MG Capsule 400 MG PO ×2 (06:21→17:20)
[2019-12-21 06:46] LABS: Bedside Glucose 105 mg/dL (70-110)
[2019-12-21 07:49] LABS: Absolute Lymphocyte Count 1.41 X10^3/uL (0.83-4.51); Absolute Neutrophil Count 5.3 X10^3/uL (2.0-7.7); Basophil# 0.03 X10^3/uL; Basophil% 0.4 % (0-1); Eosinophil# 0.44 X10^3/uL; Eosinophils% 5.7 % (0-5); Hematocrit 26.5 % (37-47); Hemoglobin 8.6 g/dL (12.0-15.0); Lymphocyte # 1.41 X10^3/ul (4.0); Lymphocyte % 18.1 % (19-41); Mean Corp Hgb Conc 32.5 g/dL (32-36); Mean Corpuscular Hgb 32.6 pg (27.0-32.0); Mean Corpuscular Volume 100.4 fL (81-99); Mean Platelet Vol. 9.1 fl (6.2-12.0); Monocyte# 0.58 X10^3/uL; Monocyte% 7.5 % (0-10); NRBC Flagged by Analyzer 0 % (0-5); Neutrophil # 5.25 X10^3/uL (2.7-7.7); Neutrophil % 67.4 % (47-70); POSITIVE MORPHOLOGY YES; Platelet Count 135 K/mm3 (150-450); RBC Distribution Width SD 73.8 fl (35.1-43.9); Red Blood Count 2.64 M/mm3 (4.2-5.4); White Blood Count 7.8 K/mm3 (4.4-11.0)
[2019-12-21 07:59] LABS: Anion Gap 5 (5-15); BUN 30 mg/dL (7-18); Calcium,Total 8.4 mg/dL (8.5-10.1); Chloride 97 mmol/L (98-107); Creatinine, Serum 1.11 mg/dL (0.55-1.02); EST Glomerular Filtration Rate 51 mL/min (>60); Est Glom Filt Rate - Afr Amer 62 mL/min (>60); Estimated Creatinine Clearance 48.81 ml/min; Glucose 102 mg/dL (74-106); Potassium 3.5 mmol/L (3.5-5.1); Sodium Level 132 mmol/L (136-145)
[2019-12-21 08:03] LABS: Differential Indicated SCAN CRITERIA MET
[2019-12-21 08:46] LABS: Anisocytosis 1+; Differential Comment SCANNED; Macrocytosis 1+; Microcytosis 1+; Red Cell Morphology N CHROM NORMAL (NORM C&C)
[2019-12-21] MEDS: LINAGLIPTIN 5 MG TABLET PO (09:12)
[2019-12-21] MEDS: Multivitamins,Ther W-Minerals Tablet 1 TABLET PO (09:12)
[2019-12-21] MEDS: Aspirin 81 MG TAB.CHEW PO ×2 (09:12→17:21)
[2019-12-21] MEDS: Triamterene 37.5MG/Hctz 25MG Capsule 1 CAP PO (09:14)
[2019-12-21 10:00] VITALS: PULSE 105; RESP 16; O2SAT 93
[2019-12-21 11:16] LABS: Bedside Glucose 86 mg/dL (70-110)
[2019-12-21] MEDS: Tuberculin,Purif.prot.deriv. 50 TU/ML Vial 5 ML ID (12:19)
[2019-12-21 13:27] VITALS: BP 138/69; PULSE 115; RESP 14; TEMP 36.6; O2SAT 96
[2019-12-21] MEDS: Iron Polysaccharide Complex 150 MG CAPSULE PO (14:09)
[2019-12-21 16:25] LABS: Bedside Glucose 103 mg/dL (70-110)
[2019-12-21 21:26] LABS: Bedside Glucose 130 mg/dL (70-110)
[2019-12-22] MEDS: Acetaminophen 500 MG Tablet 1000 MG PO ×3 (04:20→20:14)
[2019-12-22] MEDS: Famotidine 20 MG Tablet PO (04:20)
[2019-12-22 04:24] VITALS: BP 125/69; PULSE 100; RESP 18; TEMP 37.1; O2SAT 95
[2019-12-22 06:26] LABS: Bedside Glucose 100 mg/dL (70-110)
[2019-12-22] MEDS: Triamterene 37.5MG/Hctz 25MG Capsule 1 CAP PO (07:53)
[2019-12-22] MEDS: Aspirin 81 MG TAB.CHEW PO ×2 (07:53→17:39)
[2019-12-22] MEDS: Acyclovir 200 MG Capsule 400 MG PO ×2 (07:53→17:38)
[2019-12-22] MEDS: LINAGLIPTIN 5 MG TABLET PO (07:54)
[2019-12-22] MEDS: Multivitamins,Ther W-Minerals Tablet 1 TABLET PO (07:54)
[2019-12-22] MEDS: Iron Polysaccharide Complex 150 MG CAPSULE PO (07:54)
[2019-12-22 11:20] LABS: Bedside Glucose 106 mg/dL (70-110)
[2019-12-22] MEDS: Glucerna Shake 120 ML LIQUID PO ×2 (12:14→17:38)
[2019-12-22 13:32] VITALS: BP 128/68; PULSE 104; RESP 18; TEMP 37.7; O2SAT 99
[2019-12-22 16:25] LABS: Bedside Glucose 114 mg/dL (70-110)
[2019-12-22 18:34] VITALS: TEMP 36.5
[2019-12-22 21:15] LABS: Bedside Glucose 121 mg/dL (70-110)
[2019-12-23 05:40] VITALS: BP 147/83; PULSE 100; RESP 16; TEMP 37.2; O2SAT 100
[2019-12-23] MEDS: Acetaminophen 500 MG Tablet 1000 MG PO ×3 (05:44→20:21)
[2019-12-23] MEDS: Famotidine 20 MG Tablet PO (05:44)
[2019-12-23 06:25] LABS: Bedside Glucose 104 mg/dL (70-110)
[2019-12-23 07:01] LABS: Hematocrit 28.2 % (37-47); Hemoglobin 9.3 g/dL (12.0-15.0)
[2019-12-23] MEDS: Aspirin 81 MG TAB.CHEW PO ×2 (08:16→17:04)
[2019-12-23] MEDS: Iron Polysaccharide Complex 150 MG CAPSULE PO (08:16)
[2019-12-23] MEDS: Multivitamins,Ther W-Minerals Tablet 1 TABLET PO (08:17)
[2019-12-23] MEDS: Senna/Docusate Sodium 1 Tablet 2 TABLET PO ×2 (08:18→17:01)
[2019-12-23] MEDS: LINAGLIPTIN 5 MG TABLET PO (08:18)
[2019-12-23] MEDS: Acyclovir 200 MG Capsule 400 MG PO ×2 (08:18→17:01)
[2019-12-23] MEDS: Triamterene 37.5MG/Hctz 25MG Capsule 1 CAP PO (09:45)
[2019-12-23 10:51] LABS: Bedside Glucose 130 mg/dL (70-110)
[2019-12-23] MEDS: Glucerna Shake 120 ML LIQUID PO ×3 (11:49→20:21)
[2019-12-23 14:13] VITALS: BP 135/67; PULSE 103; RESP 14; TEMP 36.4; O2SAT 95
--- NOTE | 2019-12-23 14:39 | NURSING ---
Addendum entered by Angélica Hudson 12/23/19 16:19: Geno, nurse from Dr Quiles office calls back and states that Dr Quiles is on vacation, but her Dr Tran, it is ok for resident to continue with the Ferrex. Addendum entered by Angélica Hudson 12/23/19 15:22: Resident updated in regards to this. Original Note: Daughter calls and voices concern about resident being on Ferrex. She would like Dr Quiles called to see if this was ok to be on this. Nurse called at Dr Quiles's office and she states she will run this by Dr Quiles and call us back.
[2019-12-23 22:03] LABS: Ferritin 2463 ng/mL (8-252); Iron 65 ug/dL (50-170); Iron Binding Capacity,Total 224 ug/dL (250-450)
[2019-12-23] MEDS: oxyCODONE 5 MG Tablet 10 MG PO (23:13)
[2019-12-24 05:00] VITALS: BP 139/81; PULSE 97; RESP 16; TEMP 36.4; O2SAT 96
[2019-12-24] MEDS: Glucerna Shake 120 ML LIQUID PO ×4 (05:01→20:07)
[2019-12-24] MEDS: Famotidine 20 MG Tablet PO (05:02)
[2019-12-24] MEDS: oxyCODONE 5 MG Tablet 10 MG PO ×3 (05:02→20:35)
[2019-12-24] MEDS: Acetaminophen 500 MG Tablet 1000 MG PO ×3 (05:02→20:07)
[2019-12-24 06:36] LABS: Bedside Glucose 102 mg/dL (70-110)
[2019-12-24] MEDS: Aspirin 81 MG TAB.CHEW PO ×2 (08:30→16:34)
[2019-12-24] MEDS: Iron Polysaccharide Complex 150 MG CAPSULE PO (08:30)
[2019-12-24] MEDS: Triamterene 37.5MG/Hctz 25MG Capsule 1 CAP PO (08:30)
[2019-12-24] MEDS: Senna/Docusate Sodium 1 Tablet 2 TABLET PO ×2 (08:32→16:34)
[2019-12-24] MEDS: Acyclovir 200 MG Capsule 400 MG PO ×2 (08:32→16:34)
[2019-12-24] MEDS: LINAGLIPTIN 5 MG TABLET PO (08:32)
[2019-12-24] MEDS: Multivitamins,Ther W-Minerals Tablet 1 TABLET PO (08:32)
--- NOTE | 2019-12-24 13:49 | PCM.PN.RX ---
<Dee Hernandez - Last Filed: 12/24/19 13:49> Progress Note - Pharmacy Subjective: TCU Admission Objective: Allergies adhesive tape Allergy (Verified 12/18/19 09:41) Rash cefixime Allergy (Verified 12/18/19 09:41) Rash piperacillin [From Zosyn] Allergy (Verified 12/18/19 09:41) Rash tazobactam [From Zosyn] Allergy (Verified 12/18/19 09:41) Rash vancomycin Allergy (Verified 12/18/19 09:41) Rash diphenhydramine [From Benadryl] Adverse Reaction (Verified 12/18/19 09:41) hyper Current Medications Generic Name Dose Route Start Last Admin Trade Name Freq PRN Reason Stop Dose Admin Acetaminophen 1,000 mg 12/20/19 22:00 12/24/19 13:04 Acetaminophen 500 Mg Tablet PO 1,000 mg Q8 JORDI Administration Acyclovir 400 mg 12/21/19 08:00 12/24/19 08:32 Acyclovir 200 Mg Capsule PO 400 mg BID@0800,1800 JORDI Administration Aspirin 81 mg 12/20/19 17:00 12/24/19 08:30 Aspirin 81 Mg Tab.Chew PO 01/17/20 17:01 81 mg BIDCM JORDI Administration Bisacodyl 10 mg 12/20/19 18:58 Bisacodyl 10 Mg Suppository RECTAL DAILY PRN Constipation Cholecalciferol 2,000 unit 12/21/19 08:00 12/24/19 08:32 Cholecalciferol (Vit D3) 1,000 Unit (25mcg) PO 2,000 unit DAILY@0800 [facility] Administration Famotidine 20 mg 12/21/19 06:00 12/24/19 05:02 Famotidine 20 Mg Tablet PO 20 mg DAILY JORDI Administration Linagliptin 5 mg 12/21/19 08:00 12/24/19 08:32 Linagliptin 5 Mg Tablet PO 5 mg DAILY@0800 [facility] Administration Magnesium Hydroxide 30 ml 12/20/19 18:58 Magnesium Hydroxide 30 Ml Udc PO DAILY PRN Constipation Multivitamins/Minerals 1 tablet 12/21/19 08:00 12/24/19 08:32 Multivitamins,Ther W-Minerals Tablet PO 1 tablet DAILY@0800 [facility] Administration Nutritional Formula (Lactose Free) 120 ml 12/20/19 17:00 12/24/19 11:44 Glucerna Shake 120 Ml Liquid PO 120 ml 4X/DAY JORDI Administration Ondansetron HCl 8 mg 12/20/19 14:36 Ondansetron 8 Mg Tablet PO Q8H PRN PRN NAUSEA Oxycodone HCl 10 mg 12/20/19 18:59 12/24/19 12:30 Oxycodone 5 Mg Tablet PO 10 mg Q4H PRN PRN Administration Pain Score 4-10 Polyethylene Glycol 17 gm 12/21/19 08:00 12/24/19 08:31 Polyethylene Glycol 3350 17 Gm Packet PO Not Given DAILY@0800 [facility] Polysaccharide Iron Complex 150 mg 12/22/19 08:00 12/24/19 08:30 Iron Polysaccharide Complex 150 Mg Capsule PO 150 mg DAILYCM JORDI Administration Promethazine HCl 25 mg 12/20/19 14:36 Promethazine 25 Mg Tablet PO Q6H PRN PRN NAUSEA Senna/Docusate Sodium 2 tablet 12/21/19 08:00 12/24/19 08:32 Senna/Docusate Sodium 1 Tablet PO 2 tablet BID@0800,1800 JORDI Administration Triamterene/Hydrochlorothiazide 1 cap 12/21/19 08:00 12/24/19 08:30 Triamterene 37.5mg/Hctz 25mg Capsule PO 1 cap DAILY@0800 [facility] Administration Tuberculin PPD 5 tu 12/28/19 10:00 Tuberculin,Purif.Prot.Deriv. 50 Tu/Ml Vial ID 12/28/19 10:01 X1 ONE Problem List Debility (Acute) Osteoarthritis of right hip (Chronic) Gout (Chronic) Osteoarthritis (Chronic) Leukemia (Chronic) DVT (deep venous thrombosis) (Chronic) Gastrointestinal bleed (Chronic) Kvcyc-hwqwhl-sfgg disease (Chronic) Hypomagnesemia (Chronic) Diabetes mellitus (Chronic) Vitamin D deficiency (Chronic) Insomnia (Chronic) Hypertension (Chronic) Vital Signs Temp Pulse Resp BP Pulse Ox 97.5 F L 97 16 139/81 H 96 12/24/19 05:00 12/24/19 05:00 12/24/19 05:00 12/24/19 05:00 12/24/19 05:00 Oxygen Delivery Method Room Air Weight: 68.039 kg Body Mass Index (BMI) 30.9 Finger Stick Blood Glucose 221 Sodium 132 mmol/L (136-145) L 12/21/19 06:50 Potassium 3.5 mmol/L (3.5-5.1) 12/21/19 06:50 Chloride 97 mmol/L (98-107) L 12/21/19 06:50 Carbon Dioxide 30.0 mmol/L (21.0-32.0) 12/21/19 06:50 Anion Gap 5 (5-15) 12/21/19 06:50 BUN 30 mg/dL (7-18) H 12/21/19 06:50 Creatinine 1.11 mg/dL (0.55-1.02) H 12/21/19 06:50 Est GFR (MDRD) Af Amer 62 mL/min (>60) 12/21/19 06:50 Est GFR (MDRD) Non-Af 51 mL/min (>60) L 12/21/19 06:50 BUN/Creatinine Ratio 27.0 RATIO (10-20) H 12/21/19 06:50 Glucose 102 mg/dL (74-106) 12/21/19 06:50 Assessment/Plan: 1. Pain: acetaminophen 1000mg PO Q8H and oxycodone 10mg PO Q4H PRN pain 4-11/15. Please continue to monitor for S/S of increased pain, PRN usage, constipation and respiratory depression. 2. DVT prophylaxis: aspirin 81mg PO BIDCM thru 01/17/20. Please continue to monitor for S/S of bleeding/DVT and upset stomach. 3. Leukemia: acyclovir 400mg PO BID (prophylaxis). Please continue to monitor for S/S of infection and renal function. 4. GERD: famotidine 20mg PO daily. Please continue to monitor for S/S of GERD and renal function. *5. Diabetes mellitus type II: linagliptin 5mg PO DAILYCM. Please consider ordering a hemoglobin A1c. Patient does not have one in chart. Please continue to monitor for S/S of hypoglycemia and blood sugars (last 102mg/dL). 6. Hypertension: triamterene/hydrochlorothiazide 37.5/25mg 1T PO daily. Please continue to monitor BP (last 114/63) and renal function. 7. Nausea: ondansetron 8mg PO Q8H PRN nausea and promethazine 25mg PO Q6H PRN nausea. Please continue to monitor for nausea and PRN usage. *8. Vitamin D deficiency: cholecalciferol 2000units PO daily. Patient does not have a vitamin D level in the chart. Please consider ordering one now and then annually as clinically appropriate. Thanks. Psychotropic Medications: None Unnecessary Medications: None *Bowel Regimen: Miralax 17gm PO daily, senna/docusate 2T PO BID, bisacodyl 10mg MI daily PRN constipation, and MOM 30ML PO daily PRN constipation. Patient has refused 4/4 doses of Miralax. Please consider changing from scheduled to PRN constipation. Thanks. Please continue to monitor for S/S of constipation/diarrhea and PRN usage. Date of Note:: 12/24/19 - Provider Comments Provider responsibility: Provider responsible to enter orders to implement recommendations <Diogo Bosch Chi - Last Filed: 12/24/19 14:43> Progress Note - Pharmacy Subjective: [] Objective: Allergies adhesive tape Allergy (Verified 12/18/19 09:41) Rash cefixime Allergy (Verified 12/18/19 09:41) Rash piperacillin [From Zosyn] Allergy (Verified 12/18/19 09:41) Rash tazobactam [From Zosyn] Allergy (Verified 12/18/19 09:41) Rash vancomycin Allergy (Verified 12/18/19 09:41) Rash diphenhydramine [From Benadryl] Adverse Reaction (Verified 12/18/19 09:41) hyper Current Medications Generic Name Dose Route Start Last Admin Trade Name Freq PRN Reason Stop Dose Admin Acetaminophen 1,000 mg 12/20/19 22:00 12/24/19 13:04 Acetaminophen 500 Mg Tablet PO 1,000 mg Q8 JORDI Administration Acyclovir 400 mg 12/21/19 08:00 12/24/19 08:32 Acyclovir 200 Mg Capsule PO 400 mg BID@0800,1800 JORDI Administration Aspirin 81 mg 12/20/19 17:00 12/24/19 08:30 Aspirin 81 Mg Tab.Chew PO 01/17/20 17:01 81 mg BIDCM JORDI Administration Bisacodyl 10 mg 12/20/19 18:58 Bisacodyl 10 Mg Suppository RECTAL DAILY PRN Constipation Cholecalciferol 2,000 unit 12/21/19 08:00 12/24/19 08:32 Cholecalciferol (Vit D3) 1,000 Unit (25mcg) PO 2,000 unit DAILY@0800 [facility] Administration Famotidine 20 mg 12/21/19 06:00 12/24/19 05:02 Famotidine 20 Mg Tablet PO 20 mg DAILY [facility] Administration Linagliptin 5 mg 12/21/19 08:00 12/24/19 08:32 Linagliptin 5 Mg Tablet PO 5 mg DAILY@0800 [facility] Administration Magnesium Hydroxide 30 ml 12/20/19 18:58 Magnesium Hydroxide 30 Ml Udc PO DAILY PRN Constipation Multivitamins/Minerals 1 tablet 12/21/19 08:00 12/24/19 08:32 Multivitamins,Ther W-Minerals Tablet PO 1 tablet DAILY@0800 [facility] Administration Nutritional Formula (Lactose Free) 120 ml 12/20/19 17:00 12/24/19 11:44 Glucerna Shake 120 Ml Liquid PO 120 ml 4X/DAY [facility] Administration Ondansetron HCl 8 mg 12/20/19 14:36 Ondansetron 8 Mg Tablet PO Q8H PRN PRN NAUSEA Oxycodone HCl 10 mg 12/20/19 18:59 12/24/19 12:30 Oxycodone 5 Mg Tablet PO 10 mg Q4H PRN PRN Administration Pain Score 4-10 Polyethylene Glycol 17 gm 12/21/19 08:00 12/24/19 08:31 Polyethylene Glycol 3350 17 Gm Packet PO Not Given DAILY@0800 [facility] Polysaccharide Iron Complex 150 mg 12/22/19 08:00 12/24/19 08:30 Iron Polysaccharide Complex 150 Mg Capsule PO 150 mg DAILYCM [facility] Administration Promethazine HCl 25 mg 12/20/19 14:36 Promethazine 25 Mg Tablet PO Q6H PRN PRN NAUSEA Senna/Docusate Sodium 2 tablet 12/21/19 08:00 12/24/19 08:32 Senna/Docusate Sodium 1 Tablet PO 2 tablet BID@0800,1800 [facility] Administration Triamterene/Hydrochlorothiazide 1 cap 12/21/19 08:00 12/24/19 08:30 Triamterene 37.5mg/Hctz 25mg Capsule PO 1 cap DAILY@0800 [facility] Administration Tuberculin PPD 5 tu 12/28/19 10:00 Tuberculin,Purif.Prot.Deriv. 50 Tu/Ml Vial ID 12/28/19 10:01 X1 ONE Problem List Debility (Acute) Osteoarthritis of right hip (Chronic) Gout (Chronic) Osteoarthritis (Chronic) Leukemia (Chronic) DVT (deep venous thrombosis) (Chronic) Gastrointestinal bleed (Chronic) Zmwyr-hdsycf-rahh disease (Chronic) Hypomagnesemia (Chronic) Diabetes mellitus (Chronic) Vitamin D deficiency (Chronic) Insomnia (Chronic) Hypertension (Chronic) Vital Signs Temp Pulse Resp BP Pulse Ox 97.2 F L 92 16 114/63 98 12/24/19 13:55 12/24/19 13:55 12/24/19 13:55 12/24/19 13:55 12/24/19 13:55 Oxygen Delivery Method Room Air Weight: 68.039 kg Body Mass Index (BMI) 30.9 Finger Stick Blood Glucose 221 Sodium 132 mmol/L (136-145) L 12/21/19 06:50 Potassium 3.5 mmol/L (3.5-5.1) 12/21/19 06:50 Chloride 97 mmol/L (98-107) L 12/21/19 06:50 Carbon Dioxide 30.0 mmol/L (21.0-32.0) 12/21/19 06:50 Anion Gap 5 (5-15) 12/21/19 06:50 BUN 30 mg/dL (7-18) H 12/21/19 06:50 Creatinine 1.11 mg/dL (0.55-1.02) H 12/21/19 06:50 Est GFR (MDRD) Af Amer 62 mL/min (>60) 12/21/19 06:50 Est GFR (MDRD) Non-Af 51 mL/min (>60) L 12/21/19 06:50 BUN/Creatinine Ratio 27.0 RATIO (10-20) H 12/21/19 06:50 Glucose 102 mg/dL (74-106) 12/21/19 06:50 Assessment/Plan: Psychotropic Medications: Unnecessary Medications: Bowel Regimen: - Provider Comments Provider responsibility: Provider responsible to enter orders to implement recommendations Provider Comments to Recommendations by Pharmacy: Agree
[2019-12-24 13:55] VITALS: BP 114/63; PULSE 92; RESP 16; TEMP 36.2; O2SAT 98
--- NOTE | 2019-12-24 14:28 | CHAPLAIN ---
Type of Pastoral Visit _x__ Initial Visit ___ Follow-up Visit ___ On-call Visit ___ General Patient Visit ___ Spiritual Assessment ___ Family Conference ___ Bereavement ___ Rapid Response ___ Code Blue ___ Other (describe below) Pastoral Care Referral From _x__ Patient ___ Family ___ Nurse ___ Physician ___ Lens Molder ___ Fitness Center Attendant ___ Other (describe below) Sacrament/Intervention _x__ Active listening ___ Anointing ___ Orthodox ___ Bereavement ___ Communion _x__ Jyotsna exploration ___ _x__ Life review _x__ Prayer ___ Reconciliation ___ Sacrament of Sick _x__ Supportive presence ___ Wedding ___ Other (describe below) Pastoral Comments patient has had numerous health challenges in the last months and was in 2018; pt states that her jyotsna sustains her and that family and friends are very supportive; pt welcomes spiritual care support
[2019-12-25] MEDS: Acetaminophen 500 MG Tablet 1000 MG PO ×3 (04:41→21:09)
[2019-12-25] MEDS: Famotidine 20 MG Tablet PO (04:41)
[2019-12-25 04:42] VITALS: BP 146/74; PULSE 93; RESP 16; TEMP 36.9; O2SAT 94
[2019-12-25] MEDS: Acyclovir 200 MG Capsule 400 MG PO ×2 (08:10→17:59)
[2019-12-25] MEDS: LINAGLIPTIN 5 MG TABLET PO (08:10)
[2019-12-25] MEDS: Senna/Docusate Sodium 1 Tablet 2 TABLET PO (08:10)
[2019-12-25] MEDS: Aspirin 81 MG TAB.CHEW PO ×2 (08:11→17:59)
[2019-12-25] MEDS: Glucerna Shake 120 ML LIQUID PO ×3 (08:11→21:09)
[2019-12-25] MEDS: Triamterene 37.5MG/Hctz 25MG Capsule 1 CAP PO (08:11)
[2019-12-25] MEDS: Iron Polysaccharide Complex 150 MG CAPSULE PO (08:11)
[2019-12-25] MEDS: Multivitamins,Ther W-Minerals Tablet 1 TABLET PO (09:54)
--- NOTE | 2019-12-25 13:30 | CASEMGMT ---
Social Work IDT met with patient and dtr via conference call for care plan meeting. Discussed patient's progress in therapy. Pt is WBAT, SBA for tx and ambulating 60-100 ft with FWW, using 2# wts on L LE and 0# wts on R LE. Pt is supervised for grooming, UE ADLS, CGA for LE ADLS with AE, SBA for toilet tx/tasks. Pt is on a regular diet, 25-74% intake, receiving Glucerna, weight stable. pt is out of isolation 01/02. Explained Medicare benefit. the goal is for pt to return home alone, has two steps to enter. the goal is for estimated DC in a week. Will continue to follow. VY JohnsonW
[2019-12-25 13:50] VITALS: BP 135/83; PULSE 106; RESP 15; TEMP 36.6; O2SAT 97
[2019-12-25] MEDS: oxyCODONE 5 MG Tablet 10 MG PO (21:10)
[2019-12-26 05:52] VITALS: BP 128/69; PULSE 92; RESP 16; TEMP 36.5; O2SAT 98
[2019-12-26] MEDS: Acetaminophen 500 MG Tablet 1000 MG PO ×3 (05:52→20:20)
[2019-12-26] MEDS: Famotidine 20 MG Tablet PO (05:53)
[2019-12-26] MEDS: oxyCODONE 5 MG Tablet 10 MG PO (05:58)
[2019-12-26 06:25] LABS: Bedside Glucose 100 mg/dL (70-110)
[2019-12-26] MEDS: Aspirin 81 MG TAB.CHEW PO ×2 (09:02→17:07)
[2019-12-26] MEDS: Multivitamins,Ther W-Minerals Tablet 1 TABLET PO (09:02)
[2019-12-26] MEDS: Glucerna Shake 120 ML LIQUID PO ×4 (09:02→20:20)
[2019-12-26] MEDS: Senna/Docusate Sodium 1 Tablet 2 TABLET PO ×2 (09:02→17:07)
[2019-12-26] MEDS: Triamterene 37.5MG/Hctz 25MG Capsule 1 CAP PO (09:02)
[2019-12-26] MEDS: Iron Polysaccharide Complex 150 MG CAPSULE PO (09:02)
[2019-12-26] MEDS: Acyclovir 200 MG Capsule 400 MG PO ×2 (09:03→17:07)
[2019-12-26] MEDS: LINAGLIPTIN 5 MG TABLET PO (09:03)
--- NOTE | 2019-12-26 11:18 | NURSING ---
Patient would like to hold off on getting Pneumonia vaccine. Will let staff know when and if she wants it.
[2019-12-26 11:23] VITALS: PULSE 92; RESP 18; O2SAT 90
--- NOTE | 2019-12-26 15:11 | CASEMGMT ---
Social Work Spoke with pt and dtr about DC plans. They are requesting to DC home 12/30. IDT agreeable. Pt would like to restart PT at [place]. Referral made. No DME needs. Dtr to transport. Plan: DC home 12/30 with [facility], no DME VY JohnsonW
--- NOTE | 2019-12-26 16:03 | CHAPLAIN ---
Type of Pastoral Visit ___ Initial Visit _x__ Follow-up Visit ___ On-call Visit ___ General Patient Visit ___ Spiritual Assessment ___ Family Conference ___ Bereavement ___ Rapid Response ___ Code Blue ___ Other (describe below) Pastoral Care Referral From ___ Patient ___ Family ___ Nurse ___ Physician ___ Bio Medical Technician ___ Crop Nutrition Scientist _x__ Other (describe below) Sacrament/Intervention ___ Active listening ___ Anointing ___ Yazidism _x__ Bereavement ___ Communion ___ Jyotsna exploration ___ ___ Life review ___ Prayer ___ Reconciliation ___ Sacrament of Sick ___ Supportive presence ___ Wedding ___ Other (describe below) Pastoral Comments was notified by staff that this patient's father yesterday; stopped by for a brief word to acknowledge the and assure pt of prayers of support
[2019-12-26 18:57] VITALS: BP 124/62; PULSE 92; RESP 18; TEMP 36.8; O2SAT 90
--- NOTE | 2019-12-26 18:58 | NURSING ---
Spoke with patient's daughter this afternoon. Prevnar 13 vaccine is due February 01 and will not be getting the pneumovac. Patient has already had flu vaccine this season. Internal medicine will take care of all future vaccinations.
--- NOTE | 2019-12-26 20:17 | DCINST_ITS ---
- Discharge Diagnoses Current Active Problems: Current Active and Chronic Problems Debility (Acute) Osteoarthritis of right hip (Chronic) Gout (Chronic) Osteoarthritis (Chronic) Leukemia (Chronic) DVT (deep venous thrombosis) (Chronic) Gastrointestinal bleed (Chronic) Gvpgm-idpnes-cdmg disease (Chronic) Hypomagnesemia (Chronic) Diabetes mellitus (Chronic) Vitamin D deficiency (Chronic) Insomnia (Chronic) Hypertension (Chronic) You will use the following diet at home:: No restrictions, Regular Your food should be the consistency of: Regular Your liquids should be the consistency of: Regular/Thin Discharge Activity: Return to Normal Activity, May Shower, Use Walker Weight Bearing Status: Weight bearing as tolerated Call your doctor if you observe: Fever of 101 or Higher, Inability to urinate, Inability to have a bowel movement, Shortness of breath, Chest pain, Uncontrolled pain Allergies/Adverse Reactions: Allergies adhesive tape Allergy (Verified 12/18/19 09:41) Rash cefixime Allergy (Verified 12/18/19 09:41) Rash piperacillin [From Zosyn] Allergy (Verified 12/18/19 09:41) Rash tazobactam [From Zosyn] Allergy (Verified 12/18/19 09:41) Rash vancomycin Allergy (Verified 12/18/19 09:41) Rash diphenhydramine [From Benadryl] Adverse Reaction (Verified 12/18/19 09:41) hyper Medications to take at Discharge Acyclovir 400 mg PO BID 06/05/18 Cholecalciferol (Vitamin D3) [Vitamin D3] 2,000 unit PO DAILY 11/27/19 Multivitamin with Minerals [Multiple Vitamin] 2 ea PO DAILY 11/27/19 Sitagliptin Phosphate [Januvia] 100 mg PO DAILY 11/27/19 Triamterene 37.5MG/Hctz 25MG [Dyazide (G)] 1 cap PO DAILY 12/18/19 Acetaminophen [Tylenol] 1,000 mg PO Q8 12/20/19 Aspirin [Aspirin, Baby] 81 mg PO BIDCM 12/20/19 Famotidine [Pepcid] 20 mg PO DAILY #30 tab 12/26/19 Iron Polysaccharide Complex [Ferrex 150] 150 mg PO DAILYCM #30 cap 12/26/19 Oxycodone [Oxyir] 5 - 10 mg PO Q4H PRN PRN 3 Days #30 tab 12/26/19 Polyethylene Glycol 3350 [Miralax] 17 gm PO DAILY@0800 #30 packet 12/26/19 The following prescriptions were given: Iron Polysaccharide Complex [Ferrex 150] 150 mg PO DAILYCM #30 cap Transmission Status: Pending to [facility] Polyethylene Glycol 3350 [Miralax] 17 gm PO DAILY@0800 #30 packet Transmission Status: Pending to [facility] Oxycodone [Oxyir] 5 - 10 mg PO Q4H PRN PRN 3 Days #30 tab PRN Reason: Pain Score 4-10 Prescription Printed Famotidine [Pepcid] 20 mg PO DAILY #30 tab Transmission Status: Pending to [facility] Primary Care Physician: Maegan Benavides NP, VETERINARY BACTERIOLOGIST-C [Primary Care Provider] - Please follow up with your Primary Care Physician in: 1 week. Test Results: Test results from this visit will be discussed in further detail at your follow- up appointment, if applicable. Please Follow Up With: Rosita Hollingsworth NP, VETERINARY BACTERIOLOGIST-C When: [phone] Proposed Discharge Date: 12/31/19
--- NOTE | 2019-12-26 20:18 | DS.PCM_ITS ---
Discharge Date and Diagnosis - Problem List Patient Problems: Active and Suspected Problems Debility (Acute) Date of Admission: 12/20/19 Date of Discharge: 12/31/19 - Primary Discharge Diagnosis Acute Problems: Active Problems Debility (Acute) - Secondary Discharge Diagnosis Chronic Problems: Chronic Problems Swelling of right upper extremity (Chronic) Osteoarthritis of right hip (Chronic) Gout (Chronic) Osteoarthritis (Chronic) Leukemia (Chronic) DVT (deep venous thrombosis) (Chronic) Gastrointestinal bleed (Chronic) Diiid-nbtobw-cpel disease (Chronic) Hypomagnesemia (Chronic) Diabetes mellitus (Chronic) Vitamin D deficiency (Chronic) Insomnia (Chronic) Hypertension (Chronic) Acute myeloid leukemia (Chronic) Pancytopenia (Chronic) Hospital Course and Treatment Imaging Results: 12/20/19 14:38 Diet: Regular - General Food consistency:: Regular Liquid Consistency:: Regular/Thin Is pt able to select menu?: Yes Labs (Last 48 Hours) 12/26/19 06:01 POC Glucose 100 Operations: None Procedures: None Summary of Care Provided: The patient is a 74 year old Female with below past medical history hospitalized for right total hip replacement 12/18/19, complicated by anemia requiring 2 units PRBC transfusion, admitted to TCU with debility, here for rehabilitation, strengthening, prior to discharge home alone. Discharge home alone, [place] [facility], no durable medical equipment. Patient Problems: Active and Suspected Problems Debility (Acute) - Physical Exam Vitals/I&O's: Vital Signs Temp Pulse Resp BP Pulse Ox 98.3 F 92 18 124/62 H 90 12/26/19 18:57 12/26/19 18:57 12/26/19 18:57 12/26/19 18:57 12/26/19 18:57 Oxygen Delivery Method Room Air Weight: 68.039 kg Body Mass Index (BMI) 30.9 Finger Stick Blood Glucose 221 Intake and Output for Last 24 Hours 12/24/19 12/25/19 12/26/19 23:59 23:59 23:59 Intake Total 900 / 900 600 / 600 960 / 960 Balance 900 / 900 600 / 600 960 / 960 Laboratory Results 12/26/19 06:01: POC Glucose 100 Current Medications Acetaminophen (Acetaminophen 500 Mg Tablet) 1,000 mg PO Q8 JORDI Last Admin: 12/26/19 13:26 Dose: 1,000 mg Documented by: Acyclovir (Acyclovir 200 Mg Capsule) 400 mg PO BID@0800,1800 [facility] Last Admin: 12/26/19 17:07 Dose: 400 mg Documented by: Aspirin (Aspirin 81 Mg Tab.Chew) [facility] Stop: 01/17/20 17:01 Last Admin: 12/26/19 17:07 Dose: 81 mg Documented by: Bisacodyl (Bisacodyl 10 Mg Suppository) 10 mg RECTAL DAILY PRN PRN Reason: Constipation Cholecalciferol (Cholecalciferol (Vit D3) 1,000 Unit (25mcg)) 2,000 unit PO DAILY@0800 [facility] Last Admin: 12/26/19 09:06 Dose: 2,000 unit Documented by: Famotidine (Famotidine 20 Mg Tablet) 20 mg PO DAILY [facility] Last Admin: 12/26/19 05:53 Dose: 20 mg Documented by: Linagliptin (Linagliptin 5 Mg Tablet) 5 mg PO DAILY@0800 [facility] Last Admin: 12/26/19 09:03 Dose: 5 mg Documented by: Magnesium Hydroxide (Magnesium Hydroxide 30 Ml Udc) 30 ml PO DAILY PRN PRN Reason: Constipation Multivitamins/Minerals (Multivitamins,Ther W-Minerals Tablet) 1 tablet PO DAILY@0800 [facility] Last Admin: 12/26/19 09:02 Dose: 1 tablet Documented by: Nutritional Formula (Lactose Free) (Glucerna Shake 120 Ml Liquid) 120 ml PO 0800,1200,1700,2200 [facility] Last Admin: 12/26/19 17:07 Dose: 120 ml Documented by: Ondansetron HCl (Ondansetron 8 Mg Tablet) 8 mg PO Q8H PRN PRN PRN Reason: NAUSEA Oxycodone HCl (Oxycodone 5 Mg Tablet) 10 mg PO Q4H PRN PRN PRN Reason: Pain Score 4-10 Last Admin: 12/26/19 05:58 Dose: 10 mg Documented by: Polyethylene Glycol (Polyethylene Glycol 3350 17 Gm Packet) 17 gm PO DAILY@0800 [facility] Last Admin: 12/26/19 08:59 Dose: Not Given Documented by: Polysaccharide Iron Complex (Iron Polysaccharide Complex 150 Mg Capsule) [facility] Last Admin: 12/26/19 09:02 Dose: 150 mg Documented by: Promethazine HCl (Promethazine 25 Mg Tablet) 25 mg PO Q6H PRN PRN PRN Reason: NAUSEA Senna/Docusate Sodium (Senna/Docusate Sodium 1 Tablet) 2 tablet PO BID@0800,1800 [facility] Last Admin: 12/26/19 17:07 Dose: 2 tablet Documented by: Triamterene/Hydrochlorothiazide (Triamterene 37.5mg/Hctz 25mg Capsule) 1 cap PO DAILY@0800 [facility] Last Admin: 12/26/19 09:02 Dose: 1 cap Documented by: Tuberculin PPD (Tuberculin,Purif.Prot.Deriv. 50 Tu/Ml Vial) 5 tu ID [id number] ONE Stop: 12/28/19 10:01 Discharge Diet: No Restrictions Discharge Activity: Return to Normal Activity, May Shower, Use Walker Weight Bearing Status: Weight bearing as tolerated Call your doctor if you observe: Fever of 101 or Higher, Inability to urinate, Inability to have a bowel movement, Shortness of breath, Chest pain, Uncontrolled pain Home Medications: Medications to take at Discharge Acyclovir 400 mg PO BID 06/05/18 Cholecalciferol (Vitamin D3) [Vitamin D3] 2,000 unit PO DAILY 11/27/19 Multivitamin with Minerals [Multiple Vitamin] 2 ea PO DAILY 11/27/19 Sitagliptin Phosphate [Januvia] 100 mg PO DAILY 11/27/19 Triamterene 37.5MG/Hctz 25MG [Dyazide (G)] 1 cap PO DAILY 12/18/19 Acetaminophen [Tylenol] 1,000 mg PO Q8 12/20/19 Aspirin [Aspirin, Baby] 81 mg PO BIDCM 12/20/19 Famotidine [Pepcid] 20 mg PO DAILY #30 tab 12/26/19 Iron Polysaccharide Complex [Ferrex 150] 150 mg PO DAILYCM #30 cap 12/26/19 Oxycodone [Oxyir] 5 - 10 mg PO Q4H PRN PRN 3 Days #30 tab 12/26/19 Polyethylene Glycol 3350 [Miralax] 17 gm PO DAILY@0800 #30 packet 12/26/19 Following Prescriptions Were Given to Patient: Iron Polysaccharide Complex [Ferrex 150] 150 mg PO DAILYCM #30 cap Transmission Status: Pending to [facility] Polyethylene Glycol 3350 [Miralax] 17 gm PO DAILY@0800 #30 packet Transmission Status: Pending to [facility] Oxycodone [Oxyir] 5 - 10 mg PO Q4H PRN PRN 3 Days #30 tab PRN Reason: Pain Score 4-10 Prescription Printed Famotidine [Pepcid] 20 mg PO DAILY #30 tab Transmission Status: Pending to [facility] Primary Care Physician: Maegan Benavides NP, PLANER MILL GRADER-C [Primary Care Provider] - Please follow up with your Primary Care Physician in: 1 week. Please Follow Up With: Rosita Hollingsworth NP, PLANER MILL GRADER-C When: [phone] Disposition: Home Minutes spent on discharge:: 30 Patient Condition:: Stable Medical Necessity - Tobacco Use Smoking Status: Never smoker Tobacco Use: Non-smoker Meaningful Use Info Meaningful Use Diagnoses (Choose all that apply): None applicable
[2019-12-27 05:00] VITALS: BP 155/78; PULSE 95; RESP 16; TEMP 36.7; O2SAT 99
[2019-12-27] MEDS: Acetaminophen 500 MG Tablet 1000 MG PO ×3 (06:09→20:30)
[2019-12-27] MEDS: Famotidine 20 MG Tablet PO (06:09)
[2019-12-27 06:30] LABS: Bedside Glucose 90 mg/dL (70-110)
[2019-12-27] MEDS: Glucerna Shake 120 ML LIQUID PO ×4 (08:57→20:29)
[2019-12-27] MEDS: Triamterene 37.5MG/Hctz 25MG Capsule 1 CAP PO (09:00)
[2019-12-27] MEDS: Iron Polysaccharide Complex 150 MG CAPSULE PO (09:00)
[2019-12-27] MEDS: Multivitamins,Ther W-Minerals Tablet 1 TABLET PO (09:00)
[2019-12-27] MEDS: Senna/Docusate Sodium 1 Tablet 2 TABLET PO ×2 (09:00→16:39)
[2019-12-27] MEDS: Aspirin 81 MG TAB.CHEW PO ×2 (09:00→16:39)
[2019-12-27] MEDS: LINAGLIPTIN 5 MG TABLET PO (09:01)
[2019-12-27] MEDS: Acyclovir 200 MG Capsule 400 MG PO ×2 (09:01→16:40)
[2019-12-27 13:30] VITALS: BP 123/63; PULSE 106; RESP 18; TEMP 37; O2SAT 96
[2019-12-28 01:25] VITALS: BP 151/70; PULSE 92; RESP 16; TEMP 36.1; O2SAT 98
[2019-12-28] MEDS: Famotidine 20 MG Tablet PO (05:23)
[2019-12-28] MEDS: Acetaminophen 500 MG Tablet 1000 MG PO ×3 (05:23→21:09)
[2019-12-28 06:30] LABS: Bedside Glucose 102 mg/dL (70-110)
[2019-12-28] MEDS: Glucerna Shake 120 ML LIQUID PO ×4 (08:29→20:03)
[2019-12-28] MEDS: Acyclovir 200 MG Capsule 400 MG PO ×2 (08:30→17:00)
[2019-12-28] MEDS: Triamterene 37.5MG/Hctz 25MG Capsule 1 CAP PO (08:30)
[2019-12-28] MEDS: Aspirin 81 MG TAB.CHEW PO ×2 (08:30→17:00)
[2019-12-28] MEDS: Multivitamins,Ther W-Minerals Tablet 1 TABLET PO (08:30)
[2019-12-28] MEDS: Iron Polysaccharide Complex 150 MG CAPSULE PO (08:30)
[2019-12-28] MEDS: Senna/Docusate Sodium 1 Tablet 2 TABLET PO (08:30)
[2019-12-28] MEDS: LINAGLIPTIN 5 MG TABLET PO (08:30)
[2019-12-28 09:05] LABS: Absolute Lymphocyte Count 1.61 X10^3/uL (0.83-4.51); Absolute Neutrophil Count 4.6 X10^3/uL (2.0-7.7); Basophil# 0.03 X10^3/uL; Basophil% 0.4 % (0-1); Eosinophil# 0.32 X10^3/uL; Eosinophils% 4.6 % (0-5); Hematocrit 31.8 % (37-47); Hemoglobin 10.1 g/dL (12.0-15.0); Lymphocyte # 1.61 X10^3/ul (4.0); Lymphocyte % 22.9 % (19-41); Mean Corp Hgb Conc 31.8 g/dL (32-36); Mean Corpuscular Volume 103.9 fL (81-99); Mean Platelet Vol. 8.4 fl (6.2-12.0); Monocyte# 0.37 X10^3/uL; Monocyte% 5.3 % (0-10); NRBC Flagged by Analyzer 0 % (0-5); Neutrophil # 4.56 X10^3/uL (2.7-7.7); Neutrophil % 64.8 % (47-70); POSITIVE MORPHOLOGY YES; Platelet Count 210 K/mm3 (150-450); RBC Distribution Width CV 17.5 % (11.6-14.6); RBC Distribution Width SD 67.7 fl (35.1-43.9); Red Blood Count 3.06 M/mm3 (4.2-5.4)
[2019-12-28 09:17] LABS: Anion Gap 6 (5-15); BUN 26 mg/dL (7-18); BUN/Creat Ratio 24.3 RATIO (10-20); Calcium,Total 9.4 mg/dL (8.5-10.1); Chloride 96 mmol/L (98-107); Creatinine, Serum 1.07 mg/dL (0.55-1.02); EST Glomerular Filtration Rate 53 mL/min (>60); Est Glom Filt Rate - Afr Amer 65 mL/min (>60); Estimated Creatinine Clearance 49.55 ml/min; Glucose 136 mg/dL (74-106); Potassium 3.3 mmol/L (3.5-5.1); Sodium Level 131 mmol/L (136-145)
[2019-12-28 10:40] LABS: Differential Indicated SCAN CRITERIA MET
[2019-12-28] MEDS: Tuberculin,Purif.prot.deriv. 50 TU/ML Vial 5 ML ID (10:45)
[2019-12-28 12:48] LABS: Differential Comment SCANNED
[2019-12-28 12:49] LABS: Anisocytosis 2+; Macrocytosis 1+; Microcytosis 1+
[2019-12-28 14:29] VITALS: BP 141/72; PULSE 102; RESP 16; TEMP 36.5; O2SAT 98
[2019-12-29 06:10] VITALS: BP 126/62; PULSE 90; RESP 18; TEMP 36.7; O2SAT 94
[2019-12-29] MEDS: Acetaminophen 500 MG Tablet 1000 MG PO ×3 (06:11→21:11)
[2019-12-29] MEDS: Famotidine 20 MG Tablet PO (06:11)
[2019-12-29 06:36] LABS: Bedside Glucose 104 mg/dL (70-110)
[2019-12-29] MEDS: LINAGLIPTIN 5 MG TABLET PO (08:28)
[2019-12-29] MEDS: Acyclovir 200 MG Capsule 400 MG PO ×2 (08:29→16:44)
[2019-12-29] MEDS: Glucerna Shake 120 ML LIQUID PO ×4 (08:29→19:57)
[2019-12-29] MEDS: Multivitamins,Ther W-Minerals Tablet 1 TABLET PO (08:29)
[2019-12-29] MEDS: Aspirin 81 MG TAB.CHEW PO ×2 (08:29→16:43)
[2019-12-29] MEDS: Triamterene 37.5MG/Hctz 25MG Capsule 1 CAP PO (08:29)
[2019-12-29] MEDS: Iron Polysaccharide Complex 150 MG CAPSULE PO (08:29)
[2019-12-29 14:18] VITALS: BP 137/83; PULSE 109; RESP 16; TEMP 36.9; O2SAT 96
[2019-12-30 05:44] VITALS: BP 148/78; PULSE 97; RESP 16; TEMP 36.4; O2SAT 98
[2019-12-30] MEDS: Acetaminophen 500 MG Tablet 1000 MG PO ×3 (05:47→21:02)
[2019-12-30] MEDS: Famotidine 20 MG Tablet PO (05:47)
[2019-12-30 06:21] LABS: Bedside Glucose 101 mg/dL (70-110)
[2019-12-30 06:46] LABS: Anion Gap 7 (5-15); BUN 29 mg/dL (7-18); BUN/Creat Ratio 30.4 RATIO (10-20); Calcium,Total 9.2 mg/dL (8.5-10.1); Chloride 97 mmol/L (98-107); Creatinine, Serum 0.95 mg/dL (0.55-1.02); EST Glomerular Filtration Rate 61 mL/min (>60); Est Glom Filt Rate - Afr Amer 74 mL/min (>60); Glucose 93 mg/dL (74-106); Potassium 3.7 mmol/L (3.5-5.1); Sodium Level 132 mmol/L (136-145)
[2019-12-30] MEDS: Aspirin 81 MG TAB.CHEW PO ×2 (08:49→17:24)
[2019-12-30] MEDS: LINAGLIPTIN 5 MG TABLET PO (08:49)
[2019-12-30] MEDS: Triamterene 37.5MG/Hctz 25MG Capsule 1 CAP PO (08:49)
[2019-12-30] MEDS: Iron Polysaccharide Complex 150 MG CAPSULE PO (08:49)
[2019-12-30] MEDS: Acyclovir 200 MG Capsule 400 MG PO ×2 (08:49→17:24)
[2019-12-30] MEDS: Multivitamins,Ther W-Minerals Tablet 1 TABLET PO (08:49)
[2019-12-30] MEDS: Glucerna Shake 120 ML LIQUID PO ×4 (08:52→21:01)
[2019-12-30 10:00] VITALS: PULSE 99; RESP 16; O2SAT 98
[2019-12-30 14:02] VITALS: BP 150/69; PULSE 97; RESP 16; TEMP 36.9; O2SAT 97
[2019-12-31 06:17] VITALS: BP 142/76; PULSE 91; RESP 16; TEMP 36.7; O2SAT 98
[2019-12-31] MEDS: Famotidine 20 MG Tablet PO (06:19)
[2019-12-31] MEDS: Acetaminophen 500 MG Tablet 1000 MG PO ×2 (06:19→12:48)
[2019-12-31 06:31] LABS: Bedside Glucose 101 mg/dL (70-110)
[2019-12-31] MEDS: Aspirin 81 MG TAB.CHEW PO (08:50)
[2019-12-31] MEDS: Multivitamins,Ther W-Minerals Tablet 1 TABLET PO (08:51)
[2019-12-31] MEDS: LINAGLIPTIN 5 MG TABLET PO (08:51)
[2019-12-31] MEDS: Triamterene 37.5MG/Hctz 25MG Capsule 1 CAP PO (08:51)
[2019-12-31] MEDS: Iron Polysaccharide Complex 150 MG CAPSULE PO (08:51)
[2019-12-31] MEDS: Glucerna Shake 120 ML LIQUID PO ×2 (08:51→10:48)
[2019-12-31] MEDS: Acyclovir 200 MG Capsule 400 MG PO (08:52)
[2019-12-31 12:35] VITALS: PULSE 99; RESP 16; O2SAT 97
[2019-12-31 12:50] VITALS: BP 128/67; PULSE 99; RESP 16; TEMP 36.7; O2SAT 97
--- NOTE | 2019-12-31 14:34 | MDS.RN ---
Information for the mds was obtained from review of the clinical record, interview of resident, staff, and direct observation of resident's care.
== END 2019-12-31 13:25 | disposition home or self-care (01) | DRG 560 ==
PROVIDERS: Internal Medicine Hematology & Oncology; Admitting Provider Family Medicine Geriatric Medicine; PCP Nurse Practitioner Family; Referring Provider Family Medicine Geriatric Medicine; Visit Provider Family Medicine Geriatric Medicine
DX: Z47.1 Aftercare following joint replacement surgery (principal); C95.90 Leukemia, unspecified not having achieved remission; D89.813 Graft-versus-host disease, unspecified; Z96.641 Presence of right artificial hip joint; E55.9 Vitamin D deficiency, unspecified; I10 Essential (primary) hypertension; K21.9 Gastro-esophageal reflux disease without esophagitis; E11.9 Type 2 diabetes mellitus without complications; Z86.718 Personal history of other venous thrombosis and embolism; M10.9 Gout, unspecified
CPT/HCPCS: 36415; 80048; 82728; 82962; 83540; 83550; 85014; 85018; 85025; 87426; 87635; 97110; 97116; 97162; 97166; 97530; 97535; 97802; U0003

== ENCOUNTER 2021-09-03 08:24 | Outpatient (CLI) | payer MEDICARE, BC, SELFPAY ==
[2021-09-03] VITALS (7 sets, daily range): BP systolic 113–137; BP diastolic 52–69; PULSE 81–91; RESP 14–16; TEMP 35.8–36.2; O2SAT 97–100; BMI 31.3
[2021-09-03] MEDS: Acetaminophen 500 MG Tablet 1000 MG PO (08:42)
[2021-09-03] MEDS: 0.9% NaCl Peripheral Flush Adult/Peds IV (08:53)
[2021-09-03] MEDS: Hydrocortisone Sod Succinate 100 MG/2 ML Vial IV (08:53)
== END 2021-09-03 23:59 | disposition home or self-care (01) ==
LOC: MEDOUTP 08:26
PROVIDERS: PCP Nurse Practitioner Family; Referring Provider Internal Medicine Hematology & Oncology; Visit Provider Internal Medicine Hematology & Oncology
DX: D61.818 Other pancytopenia (principal)
CPT/HCPCS: 96374; 36430; 86850; 86900; 86901; 86920; 86922; J7040; P9040; A4216

== ENCOUNTER → 2021-10-01 | Outpatient (CLI) | payer MEDICARE, BC, SELFPAY ==
[2021-10-01] VITALS (7 sets, daily range): BP systolic 125–142; BP diastolic 64–74; PULSE 80–100; RESP 16; TEMP 36.4–36.8; O2SAT 98–100
[2021-10-01] MEDS: 0.9% NaCl Peripheral Flush Adult/Peds IV (09:02)
[2021-10-01] MEDS: Hydrocortisone Sod Succinate 100 MG/2 ML Vial IV (09:07)
== END | disposition home or self-care (01) ==
LOC: MEDOUTP 08:33
PROVIDERS: PCP Nurse Practitioner Family; Referring Provider Internal Medicine Hematology & Oncology; Visit Provider Internal Medicine Hematology & Oncology
DX: D61.818 Other pancytopenia (principal); C92.00 Acute myeloblastic leukemia, not having achieved remission
CPT/HCPCS: 96374; 36430; 86644; 86850; 86900; 86901; 86920; 86922; J7040; P9040; A4216

== ENCOUNTER → 2021-10-05 | Outpatient (CLI) | payer MEDICARE, BC, SELFPAY ==
[2021-10-05] MEDS: Acetaminophen 500 MG Tablet 1000 MG PO (11:55)
[2021-10-05] MEDS: 0.9% NaCl Peripheral Flush Adult/Peds IV (12:00)
[2021-10-05] MEDS: Hydrocortisone Sod Succinate 100 MG/2 ML Vial IV (12:01)
[2021-10-05 12:05] VITALS: BP 147/73; PULSE 91; TEMP 36.3; O2SAT 99
[2021-10-05 13:01] VITALS: BP 140/76; PULSE 86; RESP 16; TEMP 36.3; O2SAT 98
[2021-10-05 13:26] VITALS: BP 147/76; PULSE 85; RESP 14; TEMP 36.2; O2SAT 99
[2021-10-05 13:51] VITALS: BP 141/72; PULSE 84; TEMP 36.2; O2SAT 100
== END | disposition home or self-care (01) ==
LOC: MEDOUTP 11:27
PROVIDERS: PCP Nurse Practitioner Family; Visit Provider Internal Medicine Hematology & Oncology
DX: D61.818 Other pancytopenia (principal); C92.00 Acute myeloblastic leukemia, not having achieved remission
CPT/HCPCS: 96374; 36430; 86900; 86901; 86965; J7040; P9035; A4216

== ENCOUNTER → 2021-10-07 | Outpatient (CLI) | payer MEDICARE, BC, SELFPAY | END | disposition home or self-care (01) | LOC: LABSPEC 12:08 | PROVIDERS: PCP Nurse Practitioner Family; Visit Provider Internal Medicine Hematology & Oncology | DX: D61.818 Other pancytopenia (principal) | CPT/HCPCS: 86900; 86901 ==

== ENCOUNTER → 2021-10-08 | Outpatient (CLI) | payer MEDICARE, BC, SELFPAY ==
[2021-10-08] MEDS: 0.9% NaCl Peripheral Flush Adult/Peds IV (10:25)
[2021-10-08 10:27] VITALS: BP 142/77; PULSE 74; RESP 16; TEMP 36; O2SAT 100
[2021-10-08] MEDS: Hydrocortisone Sod Succinate 100 MG/2 ML Vial IV (10:39)
[2021-10-08 11:16] VITALS: BP 151/77; PULSE 84; RESP 16; TEMP 35.6; O2SAT 100
[2021-10-08 11:39] VITALS: BP 138/68; PULSE 75; RESP 16; TEMP 35.8; O2SAT 98
== END | disposition home or self-care (01) ==
LOC: MEDOUTP 09:37
PROVIDERS: PCP Nurse Practitioner Family; Referring Provider Internal Medicine Hematology & Oncology; Visit Provider Internal Medicine Hematology & Oncology
DX: D61.818 Other pancytopenia (principal)
CPT/HCPCS: 36430; 86900; 86901; 86965; J7040; P9035; A4216

== ENCOUNTER → 2021-10-12 | Outpatient (CLI) | payer MEDICARE, BC, SELFPAY | END | disposition home or self-care (01) | LOC: LABSPEC 12:11 | PROVIDERS: PCP Nurse Practitioner Family; Referring Provider Internal Medicine Hematology & Oncology; Visit Provider Internal Medicine Hematology & Oncology | DX: D61.818 Other pancytopenia (principal) | CPT/HCPCS: 86900; 86901 ==

== ENCOUNTER → 2021-10-13 | Outpatient (CLI) | payer MEDICARE, BC, SELFPAY ==
[2021-10-13] MEDS: 0.9% NaCl Peripheral Flush Adult/Peds IV (12:40)
[2021-10-13] MEDS: Hydrocortisone Sod Succinate 100 MG/2 ML Vial IV (12:50)
[2021-10-13 12:53] VITALS: BP 129/94; PULSE 85; RESP 16; TEMP 36.3; O2SAT 98; BMI 31.1
[2021-10-13 13:28] VITALS: BP 123/67; PULSE 74; RESP 14; TEMP 36.3; O2SAT 100
[2021-10-13 13:48] VITALS: BP 122/63; PULSE 74; RESP 14; TEMP 36; O2SAT 99
== END | disposition home or self-care (01) ==
LOC: MEDOUTP 12:27
PROVIDERS: PCP Nurse Practitioner Family; Referring Provider Internal Medicine Hematology & Oncology; Visit Provider Internal Medicine Hematology & Oncology
DX: D61.818 Other pancytopenia (principal)
CPT/HCPCS: 36430; 86900; 86901; 86965; J7050; P9035; A4216

== ENCOUNTER → 2021-10-21 | Outpatient (CLI) | payer MEDICARE, BC, SELFPAY | END | disposition home or self-care (01) | LOC: LABSPEC 12:16 | PROVIDERS: PCP Nurse Practitioner Family; Referring Provider Internal Medicine Hematology & Oncology; Visit Provider Internal Medicine Hematology & Oncology | DX: R69 Illness, unspecified (principal) ==

== ENCOUNTER → 2021-10-22 | Outpatient (CLI) | payer MEDICARE, BC, SELFPAY ==
[2021-10-22 10:04] VITALS: BP 125/62; PULSE 85; TEMP 35.9; O2SAT 100
[2021-10-22] MEDS: 0.9% NaCl VAD Flush IV (10:08)
[2021-10-22] MEDS: Hydrocortisone Sod Succinate 100 MG/2 ML Vial IV (10:09)
[2021-10-22 10:53] VITALS: BP 108/59; PULSE 74; TEMP 35.9; O2SAT 100
[2021-10-22 11:56] VITALS: BP 129/64; PULSE 76; RESP 16; TEMP 36.1; O2SAT 100
[2021-10-22 12:48] VITALS: BP 114/86; PULSE 74; TEMP 36; O2SAT 100
== END | disposition home or self-care (01) ==
LOC: MEDOUTP 09:53
PROVIDERS: PCP Nurse Practitioner Family; Referring Provider Internal Medicine Hematology & Oncology; Visit Provider Internal Medicine Hematology & Oncology
DX: D61.818 Other pancytopenia (principal); C92.00 Acute myeloblastic leukemia, not having achieved remission
CPT/HCPCS: 96374; 36430; 86850; 86900; 86901; 86920; 86922; J7040; P9040; A4216

== ENCOUNTER 2021-10-25 10:32 | Outpatient (CLI) | payer MEDICARE, BC, SELFPAY ==
[2021-10-25 11:17] LABS: AST(SGOT) 18 U/L (15-37); Alanine Aminotransfer ALT/SGPT 38 U/L (13-56); Albumin, Serum 3.3 g/dL (3.2-5.0); Alkaline Phosphatase 57 U/L (45-117); Anion Gap 7 (5-15); BUN 25 mg/dL (7-18); BUN/Creat Ratio 18.4 RATIO (10-20); Calcium,Total 8.9 mg/dL (8.5-10.1); Chloride 102 mmol/L (98-107); Creatinine, Serum 1.36 mg/dL (0.55-1.02); EST Glomerular Filtration Rate 40 mL/min (>60); Est Glom Filt Rate - Afr Amer 49 mL/min (>60); Globulin 3.4 g/dL (2.2-4.2); Glucose 78 mg/dL (74-106); LDH 151 U/L (84-246); Potassium 3.8 mmol/L (3.5-5.1); Protein, Total 6.7 g/dL (6.4-8.2); Sodium Level 138 mmol/L (136-145); Uric Acid 4.7 mg/dL (2.6-6.0)
== END 2021-10-25 23:59 | disposition home or self-care (01) ==
LOC: LABSPEC 10:39
PROVIDERS: PCP Nurse Practitioner Family; Visit Provider Internal Medicine Hematology & Oncology
DX: C92.02 Acute myeloblastic leukemia, in relapse (principal); Z94.81 Bone marrow transplant status; D61.818 Other pancytopenia
CPT/HCPCS: 80053; 83615; 84550

== ENCOUNTER → 2021-11-02 | Outpatient (CLI) | payer MEDICARE, BC, SELFPAY ==
[2021-11-02] VITALS (7 sets, daily range): BP systolic 122–140; BP diastolic 66–75; PULSE 73–101; RESP 16; TEMP 36.1–36.7; O2SAT 98–100
[2021-11-02] MEDS: Hydrocortisone Sod Succinate 100 MG/2 ML Vial IV (08:14)
[2021-11-02] MEDS: 0.9% NaCl VAD Flush IV (08:14)
== END | disposition home or self-care (01) ==
LOC: MEDOUTP 07:57
PROVIDERS: PCP Nurse Practitioner Family; Referring Provider Internal Medicine Hematology & Oncology; Visit Provider Internal Medicine Hematology & Oncology
DX: C92.00 Acute myeloblastic leukemia, not having achieved remission (principal); D61.818 Other pancytopenia; Z51.89 Encounter for other specified aftercare
CPT/HCPCS: 96374; 36430; 86850; 86900; 86901; 86920; 86922; J7040; P9040; A4216

== ENCOUNTER → 2021-11-16 | Outpatient (CLI) | payer MEDICARE, BC, SELFPAY ==
[2021-11-16] MEDS: 0.9% NaCl Peripheral Flush Adult/Peds IV ×2 (11:49→13:04)
[2021-11-16 12:09] VITALS: BP 158/76; PULSE 91; RESP 14; TEMP 35.9; O2SAT 97; BMI 30.2
[2021-11-16] MEDS: Hydrocortisone Sod Succinate 100 MG/2 ML Vial IV (12:19)
[2021-11-16 12:48] VITALS: BP 125/73; PULSE 75; RESP 16; TEMP 36.3; O2SAT 98
[2021-11-16 13:02] VITALS: BP 126/67; PULSE 72; RESP 16; TEMP 36.1; O2SAT 99
== END | disposition home or self-care (01) ==
LOC: MEDOUTP 11:44
PROVIDERS: PCP Nurse Practitioner Family; Referring Provider Internal Medicine Hematology & Oncology; Visit Provider Internal Medicine Hematology & Oncology
DX: D61.818 Other pancytopenia (principal); C92.00 Acute myeloblastic leukemia, not having achieved remission
CPT/HCPCS: 96375; 36430; 86850; 86900; 86901; 86920; 86922; 86965; J7040; P9035; A4216

== ENCOUNTER → 2021-11-23 | Outpatient (CLI) | payer MEDICARE, BC, SELFPAY ==
[2021-11-23] MEDS: 0.9% NaCl Peripheral Flush Adult/Peds IV (10:34)
[2021-11-23] MEDS: Hydrocortisone Sod Succinate 100 MG/2 ML Vial IV (10:43)
[2021-11-23 10:51] VITALS: BP 147/68; PULSE 93; RESP 16; TEMP 36.3; O2SAT 100; BMI 30.2
[2021-11-23 11:11] VITALS: BP 119/59; PULSE 72; RESP 14; TEMP 36.2; O2SAT 99
[2021-11-23 12:11] VITALS: BP 128/64; PULSE 73; RESP 16; TEMP 36.3; O2SAT 99
[2021-11-23 13:35] VITALS: BP 123/63; PULSE 77; RESP 16; TEMP 36; O2SAT 99
[2021-11-23 14:35] VITALS: BP 143/68; PULSE 96; RESP 14; TEMP 36.5; O2SAT 97
== END | disposition home or self-care (01) ==
LOC: MEDOUTP 10:26
PROVIDERS: PCP Nurse Practitioner Family; Referring Provider Internal Medicine Hematology & Oncology; Visit Provider Internal Medicine Hematology & Oncology
DX: D61.818 Other pancytopenia (principal); C92.00 Acute myeloblastic leukemia, not having achieved remission
CPT/HCPCS: 36430; 86850; 86900; 86901; 86920; 86922; J7040; P9040; A4216

== ENCOUNTER → 2021-12-03 | Outpatient (CLI) | payer MEDICARE, BC, SELFPAY ==
[2021-12-03 08:34] VITALS: BP 123/63; PULSE 86; RESP 18; TEMP 35.9; O2SAT 100; BMI 30.2
[2021-12-03] MEDS: 0.9% NaCl VAD Flush IV (08:42)
[2021-12-03] MEDS: Hydrocortisone Sod Succinate 100 MG/2 ML Vial IV (08:53)
[2021-12-03 09:26] VITALS: BP 111/64; PULSE 75; RESP 16; TEMP 36.1; O2SAT 100
[2021-12-03 10:26] VITALS: BP 122/70; PULSE 70; RESP 16; TEMP 35.8
[2021-12-03 11:17] VITALS: BP 131/67; PULSE 75; RESP 16; TEMP 35.7
[2021-12-03 11:56] VITALS: BP 131/73; PULSE 74; RESP 16; TEMP 35.8; O2SAT 97
[2021-12-03 13:00] VITALS: BP 129/69; PULSE 90; RESP 16; TEMP 35.7; O2SAT 97
== END | disposition home or self-care (01) ==
LOC: MEDOUTP 08:25
PROVIDERS: PCP Nurse Practitioner Family; Referring Provider Internal Medicine Hematology & Oncology; Visit Provider Internal Medicine Hematology & Oncology
DX: D61.818 Other pancytopenia (principal); C92.00 Acute myeloblastic leukemia, not having achieved remission
CPT/HCPCS: 36430; 86644; 86850; 86900; 86901; 86920; 86922; J7040; P9040; A4216

== ENCOUNTER 2021-12-14 12:47 | Emergency (ER) | payer MEDICARE, BC, SELFPAY ==
[2021-12-14 12:49] VITALS: BP 126/68; PULSE 96; RESP 18; TEMP 36.2; O2SAT 96; BMI 30.2
--- NOTE | 2021-12-14 13:40 | EDS_ITS ---
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 Her platelet count has been low since she had a platelet transfusion today. Also she has a urinary tract infection and is on Macrobid. Today after her platelet transfusion was finishing she started getting mild swelling and itching to her right eye. No discharge or trauma. She wears glasses no contacts. Denies any visual change or pain. No foreign body sensation. She has never had an allergic reaction like this before in the past she has had rashes to antibiotics. Prior similar symptoms: No Recent Illness/Hospitalization: No [facility] Medical History Acute back pain Home Medications cholecalciferol (vitamin D3) 50 mcg (2,000 unit) capsule 2,000 unit PO DAILY VITAMIN D 11/27/19 [History Last Taken Unknown] acetaminophen 500 mg tablet 1,000 mg PO Q8 PRN Pain 12/20/19 [History Last Taken Unknown] alendronate 70 mg tablet (Fosamax) 70 mg PO QWEEK 10/01/21 [History Last Taken Unknown] amlodipine 5 mg tablet 5 mg PO DAILY 10/01/21 [History Last Taken Unknown] biotin 1,000 mcg chewable tablet 2,000 mcg PO DAILY 10/01/21 [History Last Taken Unknown] pantoprazole 20 mg tablet,delayed release 20 mg PO DAILY 10/01/21 [History Last Taken Unknown] potassium chloride 20 mEq tablet,extended release 20 meq PO BID 10/01/21 [History Last Taken Unknown] acyclovir 400 mg tablet 400 mg PO BID 11/16/21 [History Last Taken Unknown] cefdinir 300 mg capsule 300 mg PO BID 11/23/21 [History Last Taken Unknown] allopurinol 300 mg tablet mg 12/03/21 [History Last Taken Unknown] cefdinir 300 mg capsule 300 mg PO BID 12/14/21 [History Last Taken Unknown] nitrofurantoin macrocrystal 100 mg capsule (Macrodantin) 100 mg PO BID 12/14/21 [History Last Taken Unknown] prednisone 20 mg tablet 40 mg PO DAILY 4 days #8 tabs 12/14/21 [Rx Last Taken Unknown] Allergy/AdvReac Type Severity Reaction Status Date / Time adhesive tape Allergy Rash Verified 11/23/21 10:54 cefixime Allergy Rash Verified 11/23/21 10:54 ciprofloxacin [From Cipro] Allergy Swelling Verified 12/14/21 12:48 piperacillin [From Zosyn] Allergy Rash Verified 11/23/21 10:54 tazobactam [From Zosyn] Allergy Rash Verified 11/23/21 10:54 vancomycin Allergy Rash Verified 11/23/21 10:54 diphenhydramine AdvReac hyper Verified 11/23/21 10:54 [From Benadryl] Social History Smoking Status: Never smoker ROS ROS ED ROS Narrative Denies recent illness. Review of Systems ROS Unobtainable: Denies due to encephalopathy Constitutional Constitutional ED: Denies chills Eyes Eyes: Denies blurry vision, change in vision or diplopia ENT ENT ED: Denies ear pain Cardiovascular Cardiovascular: Denies chest pain Respiratory/Chest Respiratory/Chest: Denies cough or dyspnea Gastrointestinal Gastrointestinal: Denies abdominal pain Genitourinary Genitourinary ED: Denies dysuria or hematuria Musculoskeletal Musculoskeletal: Denies arthralgias Integumentary Denies abscess Neurologic Neurologic: Denies headache(s) Psychiatric Psychiatric: Denies anxiety Endocrine Endocrinology: Denies polydipsia Hematologic/Lymphatic Hematologic/Lymphatic: Denies easy bleeding Allergic/Immunologic Allergic/Immunologic ED: Denies mouth swelling or tongue swelling EXAM Physical Exam Narrative Exam Narrative: 76-year-old no acute distress. Vital signs stable afebrile. Pulse ox 96% on room air no signs hypoxia. Family at bedside. H EENT exam pupils round reactive light extra motions are intact. Right has mild swelling to the upper and lower lid. No discharge. No redness. No foreign body. No signs of infection. Extraocular motions are intact. Left eye unremarkable. Neck nontender. Lungs are clear. Heart regular rhythm. Abdomen soft. Const Vital Signs: 12/14/21 12:49 12/14/21 13:21 Temperature 97.1 F L Temperature Source Temporal Pulse Rate 96 Respiratory Rate 18 Respiratory Effort Normal Non-Labored Respiratory Pattern Normal Blood Pressure 126/68 H Blood Pressure Mean 87 Pulse Ox 96 Oxygen Delivery Method Room Air Positive well nourished and well developed; Negative for obese, cachectic, contractures or unkempt General Appearance ED: well developed and NAD; Negative for unkempt, cachectic or contractures Nutritional Appearance: Negative for cachectic or obese HEENT Reports other other; Negative for atraumatic, trauma or tenderness Neck no lymphadenopathy, supple and no JVD General: Negative for tenderness Resp normal respiratory effort, no retractions, no use of accessory muscles and clear to auscultation bilaterally Cardio regular rate, regular rhythm, S1 normal heart sound, S2 normal heart sound and no murmurs Jugular Venous Distention: Negative for other GI non-tender, non-distended and no masses Inspection: Negative for other Auscultation: normoactive bowel sounds Palpation: soft Back/Spine no CVA tenderness General Back: Negative for CVA tenderness Extremity normal to inspection General Extremety ED: Negative for edema or other findings General Extremity: Negative for edema or other findings Neuro oriented x3, CN's II-XII intact bilaterally, moves all extremities and no sensory deficits noted Sensorium / Orientation: alert, oriented to person, oriented to place and oriented to time; Negative for orientation impaired Motor Exam: strength 5/5 throughout; Negative for general weakness or strength abnormal Psych Appearance: Negative for unkempt Attitude: No agitated Mood & Affect: Negative for depressed, anxious or tearful Skin no wounds Lesions: no lesions Rashes: no rashes Trauma: Negative for abrasion MDM MDM MDM Narrative Medical decision making narrative: 76-year-old with acute local reaction to her right eye. Most likely an allergic reaction. She was given steroids when she was getting infusion. Benadryl makes her hyper but she can take it. Is a very local reaction. Currently she is fine. She has no swelling of her lips or tongue. No hives or rash. She will be discharged home. Cool compresses to her eye. Atarax as needed. Return if worse. Discharge Plan Triage Chief Complaint: Eye Problem ED Provider: Jomar Rios Dx/Rx/DC Orders Clinical Impression: Allergic reaction Instructions: ED Conjunctivitis, Allergic Prescriptions: New prednisone 20 mg tablet 40 mg PO DAILY 4 Days Qty: 8 0RF No Action cholecalciferol (vitamin D3) 2,000 UNIT capsule 2,000 unit PO DAILY acetaminophen 500 MG tablet 1,000 mg PO Q8 PRN (Reason: Pain) Rx Instructions: Do not take more than 3000 mg Tylenol in a 24-hour period. alendronate [Fosamax] 70 mg Tablet 70 mg PO QWEEK amlodipine 5 mg Tablet 5 mg PO DAILY pantoprazole 20 mg Tablet,Delayed Release (Dr/Ec) 20 mg PO DAILY potassium chloride 20 mEq Tablet Extended Release 20 meq PO BID biotin 1,000 mcg Tablet,Chewable 2,000 mcg PO DAILY acyclovir 400 mg tablet 400 mg PO BID Label Comments: TAKE ONE TABLET BY MOUTH TWICE DAILY cefdinir 300 mg Capsule 300 mg PO BID allopurinol 300 mg tablet Label Comments: TAKE ONE TABLET BY MOUTH ONCE DAILY nitrofurantoin macrocrystal [Macrodantin] 100 mg Capsule 100 mg PO BID Rx Instructions: must administer with a meal/food cefdinir 300 mg Capsule 300 mg PO BID Primary Care Provider: Maegan Benavides NP Referrals: Maegan Benavides NP, [facility] [Primary Care Provider] - 3-5 Days if not improving Activity Restrictions/Additional Instructions: This appears to be a localized allergic reaction. Cool compresses. You can use Benadryl or Atarax. Only if getting a lot worse I wrote your prescription for prednisone but most likely this will resolve and you would not need to even get that filled or take it. This could be a reaction to the I think you have come in contact with. The platelet transfusion, the current antibiotic, any medication you are currently on or anything and came in contact with your eye. It should progressively improve. Disposition Disposition: Home, Self Care
[2021-12-14 14:04] VITALS: BP 124/79; PULSE 62; RESP 15; O2SAT 98
== END 2021-12-14 14:04 | disposition home or self-care (01) ==
LOC: ED 13:45
PROVIDERS: Emergency Provider Emergency Medicine; PCP Nurse Practitioner Family; Visit Provider Emergency Medicine
DX: H10.11 Acute atopic conjunctivitis, right eye (principal); D61.818 Other pancytopenia
CPT/HCPCS: 96374; 36430; 86900; 86901; 86965; 99283; J7040; P9035; A4216

== ENCOUNTER → 2021-12-14 | Outpatient (CLI) | payer MEDICARE, BC, SELFPAY ==
[2021-12-14] MEDS: 0.9% NaCl Peripheral Flush Adult/Peds IV ×2 (09:39→10:25)
[2021-12-14] MEDS: Hydrocortisone Sod Succinate 100 MG/2 ML Vial IV (09:39)
[2021-12-14 09:51] VITALS: BP 105/56; PULSE 93; TEMP 36.3; O2SAT 97
[2021-12-14 10:06] VITALS: BP 96/53; PULSE 85; RESP 16; TEMP 36.2
[2021-12-14 11:13] VITALS: BP 107/53; PULSE 80; RESP 14; TEMP 36.2; O2SAT 96
[2021-12-14 11:36] VITALS: BP 118/63; PULSE 89; TEMP 35.8; O2SAT 97
--- NOTE | 2021-12-14 11:43 | NURSING ---
Pt. has swelling to R. eyelid. She states it felt itchy and she has been scratching it. L.eye is WNL. Pt. denies any other itching, swelling or new onset of pain.
--- NOTE | 2021-12-14 12:47 | NURSING ---
Pt. taken to ED via WC.
== END | disposition home or self-care (01) ==
LOC: MEDOUTP 09:26
PROVIDERS: PCP Nurse Practitioner Family; Referring Provider Internal Medicine Hematology & Oncology; Visit Provider Internal Medicine Hematology & Oncology
DX: D61.818 Other pancytopenia (principal)
CPT/HCPCS: 36430; 86900; 86901; 86965; J7040; P9035; A4216

== ENCOUNTER → 2021-12-17 | Outpatient (CLI) | payer MEDICARE, BC, SELFPAY ==
[2021-12-17] VITALS (7 sets, daily range): BP systolic 103–110; BP diastolic 52–59; PULSE 72–90; RESP 16; TEMP 35.5–36.2; O2SAT 94–99; BMI 30.7
[2021-12-17] MEDS: 0.9% NaCl VAD Flush IV (09:05)
[2021-12-17] MEDS: Hydrocortisone Sod Succinate 100 MG/2 ML Vial IV (09:10)
[2021-12-17] MEDS: Furosemide 20 MG/2 ML VIAL IV (11:48)
== END | disposition home or self-care (01) ==
LOC: MEDOUTP 08:52
PROVIDERS: PCP Nurse Practitioner Family; Referring Provider Internal Medicine Hematology & Oncology; Visit Provider Internal Medicine Hematology & Oncology
DX: D61.818 Other pancytopenia (principal)
CPT/HCPCS: 36430; 86850; 86900; 86901; 86920; 86922; J7040; P9040; A4216; J1940

== ENCOUNTER → 2021-12-24 | Outpatient (CLI) | payer MEDICARE, BC, SELFPAY ==
[2021-12-24] MEDS: Hydrocortisone Sod Succinate 100 MG/2 ML Vial IV (10:54)
[2021-12-24] MEDS: 0.9% NaCl VAD Flush IV (10:54)
[2021-12-24 10:59] VITALS: BP 121/71; PULSE 82; RESP 16; O2SAT 96
[2021-12-24 11:38] VITALS: BP 138/75; PULSE 76; RESP 16; TEMP 35.8; O2SAT 94
[2021-12-24 11:53] VITALS: BP 135/74; PULSE 92; RESP 16; TEMP 35.7; O2SAT 97
== END | disposition home or self-care (01) ==
LOC: MEDOUTP 10:11
PROVIDERS: PCP Nurse Practitioner Family; Referring Provider Internal Medicine Hematology & Oncology; Visit Provider Internal Medicine Hematology & Oncology
DX: C92.90 Myeloid leukemia, unspecified, not having achieved remission (principal); D61.818 Other pancytopenia
CPT/HCPCS: 36430; 86644; 86900; 86901; 86965; J7040; P9035; A4216

== ENCOUNTER → 2021-12-31 | Outpatient (CLI) | payer MEDICARE, BC, SELFPAY | END | disposition home or self-care (01) | LOC: LABSPEC 14:47 | PROVIDERS: PCP Nurse Practitioner Family; Referring Provider Internal Medicine Hematology & Oncology; Visit Provider Internal Medicine Hematology & Oncology | DX: D61.818 Other pancytopenia (principal) | CPT/HCPCS: 86900; 86901 ==

== ENCOUNTER → 2022-01-03 | Outpatient (CLI) | payer MEDICARE, BC, SELFPAY ==
[2022-01-03 10:11] VITALS: BP 152/79; PULSE 84; RESP 14; TEMP 35.6; O2SAT 99; BMI 30.2
[2022-01-03] MEDS: 0.9% NaCl Peripheral Flush Adult/Peds IV (10:38)
[2022-01-03] MEDS: Hydrocortisone Sod Succinate 100 MG/2 ML Vial IV (10:38)
[2022-01-03 13:01] VITALS: BP 141/69; PULSE 85; RESP 16; TEMP 35.7; O2SAT 99
== END | disposition home or self-care (01) ==
LOC: MEDOUTP 09:54
PROVIDERS: PCP Nurse Practitioner Family; Visit Provider Internal Medicine Hematology & Oncology
DX: C92.00 Acute myeloblastic leukemia, not having achieved remission (principal); D61.818 Other pancytopenia
CPT/HCPCS: 36430; 86900; 86901; J7040; P9037; A4216

== ENCOUNTER → 2022-01-07 | Outpatient (CLI) | payer MEDICARE, BC, SELFPAY ==
[2022-01-07 11:28] VITALS: BP 151/69; PULSE 89; RESP 16; TEMP 36; O2SAT 99
[2022-01-07] MEDS: 0.9% NaCl Peripheral Flush Adult/Peds IV (11:32)
[2022-01-07] MEDS: Hydrocortisone Sod Succinate 100 MG/2 ML Vial IV (11:48)
[2022-01-07 12:23] VITALS: BP 127/68; PULSE 82; RESP 16; TEMP 35.8
[2022-01-07 13:28] VITALS: BP 158/85; PULSE 87; RESP 16; TEMP 35.8; O2SAT 99
[2022-01-07 14:16] VITALS: BP 158/81; PULSE 91; RESP 16; TEMP 35.6; O2SAT 100
== END | disposition home or self-care (01) ==
LOC: MEDOUTP 11:25
PROVIDERS: PCP Nurse Practitioner Family; Referring Provider Internal Medicine Hematology & Oncology; Visit Provider Internal Medicine Hematology & Oncology
DX: C92.00 Acute myeloblastic leukemia, not having achieved remission (principal); D61.818 Other pancytopenia
CPT/HCPCS: 36430; 86850; 86900; 86901; 86920; 86922; J7040; P9040; A4216

== ENCOUNTER → 2022-01-11 | Outpatient (CLI) | payer MEDICARE, BC, SELFPAY ==
[2022-01-11] MEDS: 0.9% NaCl Peripheral Flush Adult/Peds IV (09:31)
[2022-01-11] MEDS: Hydrocortisone Sod Succinate 100 MG/2 ML Vial IV (09:35)
[2022-01-11 09:42] VITALS: BP 137/75; PULSE 96; RESP 12; TEMP 36; BMI 30.2
[2022-01-11 10:03] VITALS: BP 119/68; PULSE 84; RESP 16; TEMP 36.1; O2SAT 99
[2022-01-11 10:28] VITALS: BP 118/67; PULSE 83; RESP 16; TEMP 36.2
[2022-01-11 11:03] VITALS: BP 123/71; PULSE 83; RESP 16; TEMP 36.1; O2SAT 100
[2022-01-11 11:30] VITALS: BP 144/74; PULSE 97; TEMP 35.8
== END | disposition home or self-care (01) ==
LOC: MEDOUTP 09:20
PROVIDERS: PCP Nurse Practitioner Family; Referring Provider Internal Medicine Hematology & Oncology; Visit Provider Internal Medicine Hematology & Oncology
DX: C92.90 Myeloid leukemia, unspecified, not having achieved remission (principal); D61.818 Other pancytopenia
CPT/HCPCS: 36430; 86644; 86900; 86901; 86965; J7040; P9035; A4216

== ENCOUNTER 2022-01-14 09:21 | Outpatient (CLI) | payer MEDICARE, BC, SELFPAY ==
[2022-01-14] MEDS: 0.9% NaCl Peripheral Flush Adult/Peds IV (09:34)
[2022-01-14] MEDS: Hydrocortisone Sod Succinate 100 MG/2 ML Vial IV (09:34)
[2022-01-14 09:42] VITALS: BP 115/56; PULSE 86; TEMP 35.9; O2SAT 100
[2022-01-14 10:25] VITALS: BP 115/55; PULSE 76; RESP 16; TEMP 35.7; O2SAT 98
[2022-01-14 11:34] VITALS: BP 123/82; PULSE 74; TEMP 35.8; O2SAT 100
[2022-01-14 12:19] VITALS: BP 137/67; PULSE 76; RESP 16; TEMP 36.4; O2SAT 99
== END 2022-01-14 23:59 | disposition home or self-care (01) ==
LOC: MEDOUTP 09:21
PROVIDERS: PCP Nurse Practitioner Family; Referring Provider Internal Medicine Hematology & Oncology; Visit Provider Internal Medicine Hematology & Oncology
DX: Z51.89 Encounter for other specified aftercare (principal); D61.818 Other pancytopenia
CPT/HCPCS: 36430; 86850; 86900; 86901; 86920; 96374; J7040; P9040; A4216

== ENCOUNTER → 2022-01-19 | Outpatient (CLI) | payer MEDICARE, BC, SELFPAY ==
[2022-01-19 11:56] VITALS: BP 149/77; PULSE 76; RESP 16; TEMP 35.7; O2SAT 99; BMI 31.3
[2022-01-19] MEDS: Hydrocortisone Sod Succinate 100 MG/2 ML Vial IV (12:14)
[2022-01-19] MEDS: 0.9% NaCl Peripheral Flush Adult/Peds IV (12:14)
[2022-01-19 13:06] VITALS: BP 123/59; PULSE 74; RESP 16; TEMP 36.1
[2022-01-19 13:26] VITALS: BP 137/69; PULSE 81; RESP 16; TEMP 35.7; O2SAT 100
[2022-01-19 13:59] VITALS: BP 130/70; PULSE 88; RESP 16; TEMP 35.8; O2SAT 100
[2022-01-19 14:34] VITALS: BP 132/67; PULSE 91; RESP 16; TEMP 36; O2SAT 100
== END | disposition home or self-care (01) ==
LOC: MEDOUTP 11:39
PROVIDERS: PCP Nurse Practitioner Family; Referring Provider Internal Medicine Hematology & Oncology; Visit Provider Internal Medicine Hematology & Oncology
DX: Z51.89 Encounter for other specified aftercare (principal); C92.00 Acute myeloblastic leukemia, not having achieved remission; D61.818 Other pancytopenia
CPT/HCPCS: 36430; 86900; 86901; 86965; 96374; J7040; P9035; A4216

== ENCOUNTER → 2022-01-21 | Outpatient (CLI) | payer MEDICARE, BC, SELFPAY ==
[2022-01-21 10:52] VITALS: BP 148/63; PULSE 90; RESP 16; TEMP 36.5; O2SAT 99; BMI 31.3
[2022-01-21] MEDS: Hydrocortisone Sod Succinate 100 MG/2 ML Vial IV (11:12)
[2022-01-21] MEDS: 0.9% NaCl Peripheral Flush Adult/Peds IV ×2 (11:12→11:16)
[2022-01-21 11:48] VITALS: BP 133/69; PULSE 83; RESP 16; TEMP 36.1; O2SAT 98
[2022-01-21 12:48] VITALS: BP 116/65; PULSE 75; RESP 16; TEMP 36.2
[2022-01-21 13:33] VITALS: BP 128/68; PULSE 82; RESP 16; TEMP 36.2; O2SAT 99
== END | disposition home or self-care (01) ==
LOC: MEDOUTP 10:35
PROVIDERS: PCP Nurse Practitioner Family; Referring Provider Internal Medicine Hematology & Oncology; Visit Provider Internal Medicine Hematology & Oncology
DX: Z51.89 Encounter for other specified aftercare (principal); C92.00 Acute myeloblastic leukemia, not having achieved remission; D61.818 Other pancytopenia
CPT/HCPCS: 36430; 86644; 86850; 86900; 86901; 86920; 86922; J7040; P9040; A4216

== ENCOUNTER → 2022-01-25 | Outpatient (CLI) | payer MEDICARE, BC, SELFPAY ==
[2022-01-25 10:44] VITALS: BP 144/69; PULSE 95; RESP 16; TEMP 35.9; O2SAT 99; BMI 31.3
[2022-01-25] MEDS: 0.9% NaCl Peripheral Flush Adult/Peds IV (10:49)
[2022-01-25] MEDS: Hydrocortisone Sod Succinate 100 MG/2 ML Vial IV (10:55)
[2022-01-25 11:28] VITALS: BP 129/68; PULSE 79; RESP 16; TEMP 36.1; O2SAT 98
[2022-01-25 11:46] VITALS: BP 131/69; PULSE 77; RESP 16; TEMP 36.1; O2SAT 100
[2022-01-25 12:14] VITALS: BP 136/63; PULSE 82; RESP 16; TEMP 36.1; O2SAT 99
[2022-01-25 12:35] VITALS: BP 135/68; PULSE 89; RESP 16; TEMP 36.1; O2SAT 99
== END | disposition home or self-care (01) ==
LOC: MEDOUTP 10:40
PROVIDERS: PCP Nurse Practitioner Family; Referring Provider Internal Medicine Hematology & Oncology; Visit Provider Internal Medicine Hematology & Oncology
DX: Z51.89 Encounter for other specified aftercare (principal); C92.00 Acute myeloblastic leukemia, not having achieved remission; D61.818 Other pancytopenia
CPT/HCPCS: 36430; 86644; 86900; 86901; 86965; J7040; P9035; A4216

== ENCOUNTER → 2022-02-02 | Outpatient (CLI) | payer MEDICARE, BC, SELFPAY ==
[2022-02-02] MEDS: 0.9% NaCl VAD Flush IV (09:52)
[2022-02-02] MEDS: Hydrocortisone Sod Succinate 100 MG/2 ML Vial IV (09:58)
[2022-02-02 10:01] VITALS: BP 115/64; PULSE 83; RESP 16; TEMP 36.2; O2SAT 100
[2022-02-02 10:47] VITALS: BP 110/59; PULSE 83; RESP 16; TEMP 36.1; O2SAT 99
[2022-02-02 11:52] VITALS: BP 124/65; PULSE 81; RESP 16; TEMP 36.1; O2SAT 99
[2022-02-02 13:04] VITALS: BP 128/69; PULSE 97; RESP 16; TEMP 36; O2SAT 97
== END | disposition home or self-care (01) ==
LOC: MEDOUTP 09:39
PROVIDERS: PCP Nurse Practitioner Family; Referring Provider Internal Medicine Hematology & Oncology; Visit Provider Internal Medicine Hematology & Oncology
DX: D61.818 Other pancytopenia (principal)
CPT/HCPCS: 96372; 36430; 86850; 86900; 86901; 86920; 86921; 86922; J7040; P9040; A4216

== ENCOUNTER → 2022-02-03 | Outpatient (CLI) | payer MEDICARE, BC, SELFPAY ==
[2022-02-03] MEDS: 0.9% NaCl VAD Flush IV (11:11)
[2022-02-03] MEDS: Hydrocortisone Sod Succinate 100 MG/2 ML Vial IV (11:18)
[2022-02-03 11:27] VITALS: BP 121/66; PULSE 81; RESP 16; TEMP 36.6; O2SAT 96
[2022-02-03 11:30] LABS: Absolute Lymphocyte Count 0.68 X10^3/uL (0.83-4.51); Absolute Neutrophil Count 0.1 X10^3/uL (2.0-7.7); Hematocrit 24.6 % (37-47); Hemoglobin 8.7 g/dL (12.0-15.0); Lymphocyte # 0.68 X10^3/ul (0.83-4.51); Lymphocyte % 89.5 % (19-41); Mean Corp Hgb Conc 35.4 g/dL (32-36); Mean Corpuscular Hgb 30.1 pg (27.0-32.0); Mean Corpuscular Volume 85.1 fL (81-99); Mean Platelet Vol. 10.2 fl (6.2-12.0); Monocyte# 0.03 X10^3/uL; Monocyte% 3.9 % (0-10); NRBC Flagged by Analyzer 0 % (0-5); Neutrophil # 0.05 X10^3/uL (2.7-7.7); Neutrophil % 6.6 % (47-70); POSITIVE COUNT YES; POSITIVE DIFFERENTIAL YES; POSITIVE MORPHOLOGY YES; Platelet Count 4 K/mm3 (150-450); RBC Distribution Width CV 13.8 % (11.6-14.6); RBC Distribution Width SD 43.1 fl (35.1-43.9); Red Blood Count 2.89 M/mm3 (4.2-5.4); White Blood Count 0.8 K/mm3 (4.4-11.0)
[2022-02-03 11:33] LABS: Differential Indicated SCAN CRITERIA MET
[2022-02-03 12:25] VITALS: BP 134/86; PULSE 80; RESP 16; O2SAT 98
[2022-02-03 12:51] VITALS: BP 136/74; PULSE 86; RESP 16
[2022-02-03 20:33] LABS: Xtra Tube EP Lab EXTRA TUBE
[2022-02-03 20:36] LABS: Xtra Tube EP Lab EXTRA TUBE
[2022-02-04 11:31] LABS: Pathologist Review Reviewed
== END | disposition home or self-care (01) ==
LOC: MEDOUTP 10:26
PROVIDERS: PCP Nurse Practitioner Family; Referring Provider Internal Medicine Hematology & Oncology; Visit Provider Internal Medicine Hematology & Oncology
DX: C92.02 Acute myeloblastic leukemia, in relapse (principal); D64.9 Anemia, unspecified
CPT/HCPCS: 96372; 36430; 85025; 86850; 86900; 86901; 86920; 86921; 86922; 86965; J7040; P9035; P9040; A4216

== ENCOUNTER 2022-02-09 09:46 | Outpatient (CLI) | payer MEDICARE, BC, SELFPAY ==
[2022-02-09] VITALS (9 sets, daily range): BP systolic 123–141; BP diastolic 64–79; PULSE 80–95; RESP 16; TEMP 36.1–36.4; O2SAT 96–100
[2022-02-09] MEDS: 0.9% NaCl VAD Flush IV (09:54)
[2022-02-09] MEDS: Hydrocortisone Sod Succinate 100 MG/2 ML Vial IV (10:04)
== END 2022-02-09 23:59 | disposition home or self-care (01) ==
PROVIDERS: PCP Nurse Practitioner Family; Referring Provider Internal Medicine Hematology & Oncology; Visit Provider Internal Medicine Hematology & Oncology
DX: D61.818 Other pancytopenia (principal); C92.00 Acute myeloblastic leukemia, not having achieved remission
CPT/HCPCS: 36430; 86644; 86850; 86900; 86901; 86920; 86922; 86965; J7040; P9035; P9040; A4216

== ENCOUNTER 2022-02-15 09:08 | Outpatient (CLI) | payer MEDICARE, BC, SELFPAY ==
[2022-02-15 09:22] VITALS: BP 133/79; PULSE 94; TEMP 36.2; O2SAT 98
[2022-02-15] MEDS: Hydrocortisone Sod Succinate 100 MG/2 ML Vial IV (09:27)
[2022-02-15] MEDS: 0.9% NaCl VAD Flush IV (09:33)
[2022-02-15 10:03] VITALS: BP 108/63; PULSE 81; TEMP 35.9; O2SAT 97
[2022-02-15 10:50] VITALS: BP 120/67; PULSE 86; TEMP 36; O2SAT 96
[2022-02-15 11:41] VITALS: BP 122/63; PULSE 89; TEMP 36.1; O2SAT 97
[2022-02-15 12:43] VITALS: BP 124/67; PULSE 91; RESP 16; TEMP 36.1; O2SAT 99
[2022-02-15 13:26] VITALS: BP 138/70; PULSE 101; RESP 14; TEMP 36.2; O2SAT 97
== END 2022-02-15 23:59 | disposition home or self-care (01) ==
LOC: MEDOUTP 09:08
PROVIDERS: PCP Nurse Practitioner Family; Referring Provider Internal Medicine Hematology & Oncology; Visit Provider Internal Medicine Hematology & Oncology
DX: D61.818 Other pancytopenia (principal)
CPT/HCPCS: 36430; 86644; 86850; 86900; 86901; 86920; 86922; 86965; J7040; P9035; P9040; A4216

== ENCOUNTER → 2022-02-22 | Outpatient (CLI) | payer MEDICARE, BC, SELFPAY ==
[2022-02-22] VITALS (7 sets, daily range): BP systolic 116–142; BP diastolic 64–76; PULSE 80–99; RESP 14–16; TEMP 35.9–36.4; O2SAT 95–100
[2022-02-22] MEDS: 0.9% NaCl VAD Flush IV (11:06)
[2022-02-22] MEDS: Hydrocortisone Sod Succinate 100 MG/2 ML Vial IV (11:12)
== END | disposition home or self-care (01) ==
LOC: MEDOUTP 10:56
PROVIDERS: PCP Nurse Practitioner Family; Referring Provider Internal Medicine Hematology & Oncology; Visit Provider Internal Medicine Hematology & Oncology
DX: D61.818 Other pancytopenia (principal)
CPT/HCPCS: 36430; 86644; 86850; 86900; 86901; 86920; 86922; 86965; J7040; P9035; P9040; A4216

== ENCOUNTER → 2022-03-01 | Outpatient (CLI) | payer MEDICARE, BC, SELFPAY ==
[2022-03-01 10:38] VITALS: BP 149/82; PULSE 87; RESP 16; TEMP 36; BMI 31.3
[2022-03-01] MEDS: 0.9% NaCl VAD Flush IV (10:44)
[2022-03-01] MEDS: Hydrocortisone Sod Succinate 100 MG/2 ML Vial IV (10:44)
[2022-03-01 11:18] VITALS: BP 114/70; PULSE 79; RESP 16; TEMP 36.4
[2022-03-01 11:49] VITALS: BP 128/76; PULSE 80; RESP 16; TEMP 36.2
== END | disposition home or self-care (01) ==
PROVIDERS: PCP Nurse Practitioner Family; Referring Provider Internal Medicine Hematology & Oncology; Visit Provider Internal Medicine Hematology & Oncology
DX: D61.818 Other pancytopenia (principal); C92.00 Acute myeloblastic leukemia, not having achieved remission
CPT/HCPCS: 36430; 86900; 86901; 86965; J7040; P9035; A4216

== ENCOUNTER → 2022-03-04 | Outpatient (CLI) | payer MEDICARE, BC, SELFPAY ==
[2022-03-04 10:08] VITALS: BP 142/74; PULSE 85; RESP 16; TEMP 36.5; O2SAT 100
[2022-03-04] MEDS: 0.9% NaCl VAD Flush IV (10:12)
[2022-03-04] MEDS: Hydrocortisone Sod Succinate 100 MG/2 ML Vial IV (10:20)
[2022-03-04 11:14] VITALS: BP 117/79; PULSE 79; RESP 16; TEMP 36.2; O2SAT 100
[2022-03-04 12:17] VITALS: BP 142/79; PULSE 83; RESP 16; TEMP 36.4; O2SAT 100
[2022-03-04 13:08] VITALS: BP 129/64; PULSE 86; RESP 16; TEMP 36.3; O2SAT 99
[2022-03-04 13:09] VITALS: BP 129/64; PULSE 86; RESP 16; TEMP 36.3
== END | disposition home or self-care (01) ==
LOC: MEDOUTP 09:56
PROVIDERS: PCP Nurse Practitioner Family; Referring Provider Internal Medicine Hematology & Oncology; Visit Provider Internal Medicine Hematology & Oncology
DX: D61.818 Other pancytopenia (principal); C92.00 Acute myeloblastic leukemia, not having achieved remission
CPT/HCPCS: 36430; 86850; 86900; 86901; 86920; 86922; J7040; P9040; A4216

== ENCOUNTER → 2022-03-08 | Outpatient (CLI) | payer MEDICARE, BC, SELFPAY ==
[2022-03-08 11:49] VITALS: BP 154/80; PULSE 90; RESP 16; TEMP 36.2; O2SAT 100; BMI 30.2
[2022-03-08] MEDS: 0.9% NaCl VAD Flush IV (12:12)
[2022-03-08] MEDS: Hydrocortisone Sod Succinate 100 MG/2 ML Vial IV (12:13)
[2022-03-08 12:39] VITALS: BP 122/68; PULSE 82; RESP 16; TEMP 36.2; O2SAT 100
[2022-03-08 13:24] VITALS: BP 139/64; PULSE 83; RESP 16; TEMP 35.7; O2SAT 100
[2022-03-08 13:28] VITALS: BP 139/64; PULSE 83; RESP 16; TEMP 35.7; O2SAT 100
== END | disposition home or self-care (01) ==
LOC: MEDOUTP 11:38
PROVIDERS: PCP Nurse Practitioner Family; Referring Provider Internal Medicine Hematology & Oncology; Visit Provider Internal Medicine Hematology & Oncology
DX: D61.818 Other pancytopenia (principal); C92.00 Acute myeloblastic leukemia, not having achieved remission
CPT/HCPCS: 36430; 86644; 86900; 86901; 86965; J7040; J7050; P9035; A4216

== ENCOUNTER → 2022-03-15 | Outpatient (CLI) | payer MEDICARE, BC, SELFPAY ==
[2022-03-15 10:47] VITALS: BP 121/65; PULSE 79; RESP 16; TEMP 35.7; O2SAT 100
[2022-03-15] MEDS: 0.9% NaCl VAD Flush IV ×2 (10:49→10:56)
[2022-03-15] MEDS: Hydrocortisone Sod Succinate 100 MG/2 ML Vial IV (10:56)
[2022-03-15 11:39] VITALS: BP 124/67; PULSE 74; RESP 14; TEMP 36; O2SAT 98
[2022-03-15 12:06] VITALS: BP 133/76; PULSE 81; RESP 16; TEMP 35.7; O2SAT 99
== END | disposition home or self-care (01) ==
LOC: MEDOUTP 10:20
PROVIDERS: PCP Nurse Practitioner Family; Referring Provider Internal Medicine Hematology & Oncology; Visit Provider Internal Medicine Hematology & Oncology
DX: D61.818 Other pancytopenia (principal)
CPT/HCPCS: 36430; 86644; 86900; 86901; 86965; P9035; A4216

== ENCOUNTER → 2022-03-18 | Outpatient (CLI) | payer MEDICARE, BC, SELFPAY ==
[2022-03-18] VITALS (7 sets, daily range): BP systolic 125–141; BP diastolic 61–74; PULSE 73–95; RESP 16; TEMP 35.7–36.2; O2SAT 99–100; BMI 31.3
[2022-03-18] MEDS: 0.9% NaCl VAD Flush IV (08:21)
[2022-03-18] MEDS: Hydrocortisone Sod Succinate 100 MG/2 ML Vial IV (08:21)
== END | disposition home or self-care (01) ==
LOC: MEDOUTP 07:54
PROVIDERS: PCP Nurse Practitioner Family; Referring Provider Internal Medicine Hematology & Oncology; Visit Provider Internal Medicine Hematology & Oncology
DX: D61.818 Other pancytopenia (principal); C92.00 Acute myeloblastic leukemia, not having achieved remission
CPT/HCPCS: 36430; 86644; 86850; 86900; 86901; 86920; 86922; J7040; P9040; A4216

== ENCOUNTER → 2022-03-22 | Outpatient (CLI) | payer MEDICARE, BC, SELFPAY ==
[2022-03-22] MEDS: 0.9% NaCl VAD Flush IV (10:26)
[2022-03-22] MEDS: Hydrocortisone Sod Succinate 100 MG/2 ML Vial IV (10:28)
[2022-03-22 10:35] VITALS: BP 124/70; PULSE 72; RESP 16; O2SAT 100
[2022-03-22 11:18] VITALS: BP 124/74; PULSE 67; RESP 16; TEMP 36.2; O2SAT 99
[2022-03-22 11:35] VITALS: BP 135/75; PULSE 73; RESP 16; TEMP 36.2; O2SAT 99
[2022-03-22 12:06] VITALS: BP 145/78; PULSE 82; RESP 16; TEMP 36.2; O2SAT 100
[2022-03-22 12:26] VITALS: BP 136/98; PULSE 90; RESP 16; TEMP 36.2; O2SAT 98
== END | disposition home or self-care (01) ==
LOC: MEDOUTP 10:17
PROVIDERS: PCP Nurse Practitioner Family; Referring Provider Internal Medicine Hematology & Oncology; Visit Provider Internal Medicine Hematology & Oncology
DX: D61.818 Other pancytopenia (principal)
CPT/HCPCS: 36430; 86900; 86901; 86965; J7040; P9035; A4216

== ENCOUNTER → 2022-03-29 | Outpatient (CLI) | payer MEDICARE, BC, SELFPAY ==
[2022-03-29] MEDS: DiphenhydrAMINE 25 MG Capsule PO (11:23)
[2022-03-29] MEDS: 0.9% NaCl VAD Flush IV (11:24)
[2022-03-29] MEDS: Hydrocortisone Sod Succinate 100 MG/2 ML Vial IV (11:32)
[2022-03-29 11:39] VITALS: BP 133/72; PULSE 85; RESP 16; TEMP 36.6; O2SAT 100; BMI 30.2
[2022-03-29 12:26] VITALS: BP 125/65; PULSE 80; RESP 16; TEMP 36.2; O2SAT 100
[2022-03-29 12:41] VITALS: BP 129/62; PULSE 78; RESP 16; TEMP 36.2
[2022-03-29 13:15] VITALS: BP 125/62; PULSE 87; RESP 16; TEMP 36.3
== END | disposition home or self-care (01) ==
PROVIDERS: PCP Nurse Practitioner Family; Referring Provider Internal Medicine Hematology & Oncology; Visit Provider Internal Medicine Hematology & Oncology
DX: D61.818 Other pancytopenia (principal); C92.00 Acute myeloblastic leukemia, not having achieved remission
CPT/HCPCS: 36430; 86900; 86901; 86965; J7040; J7050; P9035; A4216

== ENCOUNTER → 2022-04-01 | Outpatient (CLI) | payer MEDICARE, BC, SELFPAY ==
[2022-04-01 08:08] VITALS: BP 150/76; PULSE 97; RESP 16; TEMP 35.6; O2SAT 99; BMI 31.3
[2022-04-01] MEDS: DiphenhydrAMINE 25 MG Capsule PO (08:20)
[2022-04-01] MEDS: 0.9% NaCl VAD Flush IV (08:20)
[2022-04-01] MEDS: Hydrocortisone Sod Succinate 100 MG/2 ML Vial IV (08:20)
[2022-04-01 09:15] VITALS: BP 126/66; PULSE 79; RESP 16; TEMP 35.9; O2SAT 95
[2022-04-01 09:34] VITALS: BP 132/70; PULSE 79; RESP 16; TEMP 35.9; O2SAT 99
[2022-04-01 10:01] VITALS: BP 134/72; PULSE 83; RESP 16; TEMP 35.9; O2SAT 99
[2022-04-01 10:16] VITALS: BP 127/69; PULSE 89; RESP 16; TEMP 36.2; O2SAT 99
== END | disposition home or self-care (01) ==
LOC: MEDOUTP 07:59
PROVIDERS: PCP Nurse Practitioner Family; Referring Provider Internal Medicine Hematology & Oncology; Visit Provider Internal Medicine Hematology & Oncology
DX: D61.818 Other pancytopenia (principal); C92.00 Acute myeloblastic leukemia, not having achieved remission
CPT/HCPCS: 36430; 86900; 86901; 86965; J7040; P9035; A4216

== ENCOUNTER → 2022-04-05 | Outpatient (CLI) | payer MEDICARE, BC, SELFPAY ==
[2022-04-05] MEDS: Hydrocortisone Sod Succinate 100 MG/2 ML Vial IV (10:21)
[2022-04-05 10:23] VITALS: BP 126/72; PULSE 83; RESP 16; TEMP 36.1; O2SAT 96; BMI 30.2
[2022-04-05 11:02] VITALS: BP 118/64; PULSE 76; RESP 16; TEMP 36.3
[2022-04-05 12:02] VITALS: BP 128/69; PULSE 72; RESP 16; TEMP 36.2
[2022-04-05 12:58] VITALS: BP 127/71; PULSE 87; RESP 16; TEMP 36; O2SAT 98
== END | disposition home or self-care (01) ==
LOC: MEDOUTP 10:00
PROVIDERS: PCP Nurse Practitioner Family; Referring Provider Internal Medicine Hematology & Oncology; Visit Provider Internal Medicine Hematology & Oncology
DX: C92.00 Acute myeloblastic leukemia, not having achieved remission (principal); D61.818 Other pancytopenia
CPT/HCPCS: 36430; 86644; 86850; 86900; 86901; 86920; 86922; J7040; P9040

== ENCOUNTER 2022-04-08 07:47 | Outpatient (CLI) | payer MEDICARE, BC, SELFPAY ==
[2022-04-08] VITALS (8 sets, daily range): BP systolic 121–156; BP diastolic 68–83; PULSE 71–82; RESP 16; TEMP 35.8–36.2; O2SAT 98–100
[2022-04-08] MEDS: DiphenhydrAMINE 25 MG Capsule PO (08:00)
[2022-04-08] MEDS: Hydrocortisone Sod Succinate 100 MG/2 ML Vial IV (08:03)
[2022-04-08] MEDS: 0.9% NaCl VAD Flush IV (08:03)
== END 2022-04-08 23:59 | disposition home or self-care (01) ==
LOC: MEDOUTP 07:48
PROVIDERS: PCP Nurse Practitioner Family; Referring Provider Internal Medicine Hematology & Oncology; Visit Provider Internal Medicine Hematology & Oncology
DX: C92.00 Acute myeloblastic leukemia, not having achieved remission (principal); D61.818 Other pancytopenia
CPT/HCPCS: 36430; 86644; 86850; 86900; 86901; 86920; 86922; 86965; J7040; P9035; P9040; A4216

== ENCOUNTER → 2022-04-15 | Outpatient (CLI) | payer MEDICARE, BC, SELFPAY ==
[2022-04-15] MEDS: DiphenhydrAMINE 25 MG Capsule 50 MG PO (11:27)
[2022-04-15] MEDS: Hydrocortisone Sod Succinate 100 MG/2 ML Vial IV (11:27)
[2022-04-15 11:35] VITALS: BP 125/71; PULSE 74; RESP 16; TEMP 36.3; O2SAT 100; BMI 31.5
[2022-04-15 12:43] VITALS: BP 125/69; PULSE 73; RESP 16; TEMP 36.2
[2022-04-15 13:03] VITALS: BP 126/72; PULSE 70; TEMP 36.3
[2022-04-15 13:50] VITALS: BP 131/68; PULSE 80; RESP 16; TEMP 36.3
== END | disposition home or self-care (01) ==
LOC: MEDOUTP 11:05
PROVIDERS: PCP Nurse Practitioner Family; Referring Provider Internal Medicine Hematology & Oncology; Visit Provider Internal Medicine Hematology & Oncology
DX: D61.818 Other pancytopenia (principal)
CPT/HCPCS: 36430; 86900; 86901; 86965; J7040; P9035; A4216

== ENCOUNTER → 2022-04-19 | Outpatient (CLI) | payer MEDICARE, BC, SELFPAY ==
[2022-04-19] VITALS (7 sets, daily range): BP systolic 112–141; BP diastolic 57–65; PULSE 71–100; RESP 14–16; TEMP 35.9–36.2; O2SAT 96–100; BMI 32.3
[2022-04-19] MEDS: DiphenhydrAMINE 25 MG Capsule PO (08:43)
[2022-04-19] MEDS: Hydrocortisone Sod Succinate 100 MG/2 ML Vial IV (08:43)
== END | disposition home or self-care (01) ==
LOC: MEDOUTP 08:33
PROVIDERS: PCP Nurse Practitioner Family; Referring Provider Internal Medicine Hematology & Oncology; Visit Provider Internal Medicine Hematology & Oncology
DX: D61.818 Other pancytopenia (principal)
CPT/HCPCS: 36430; 86850; 86900; 86901; 86920; 86922; 86965; J7040; P9035; P9040; A4216

== ENCOUNTER → 2022-04-22 | Outpatient (CLI) | payer MEDICARE, BC, SELFPAY ==
[2022-04-22] MEDS: DiphenhydrAMINE 25 MG Capsule PO (11:09)
[2022-04-22] MEDS: 0.9% NaCl VAD Flush IV (11:11)
[2022-04-22] MEDS: Hydrocortisone Sod Succinate 100 MG/2 ML Vial IV (11:15)
[2022-04-22 11:20] VITALS: BP 136/77; PULSE 79; RESP 16; TEMP 36; O2SAT 98
[2022-04-22 12:04] VITALS: BP 145/76; PULSE 81; RESP 16; TEMP 36.2; O2SAT 96
== END | disposition home or self-care (01) ==
LOC: MEDOUTP 11:00
PROVIDERS: PCP Nurse Practitioner Family; Referring Provider Internal Medicine Hematology & Oncology; Visit Provider Internal Medicine Hematology & Oncology
DX: D61.818 Other pancytopenia (principal); C92.00 Acute myeloblastic leukemia, not having achieved remission
CPT/HCPCS: 36430; 86900; 86901; 86965; J7040; P9035; A4216

== ENCOUNTER 2022-04-29 11:20 | Emergency (ER) | payer MEDICARE, BC, SELFPAY ==
[2022-04-29] VITALS (11 sets, daily range): BP systolic 104–157; BP diastolic 68–132; PULSE 84–97; RESP 13–27; TEMP 36.5–37; O2SAT 94–100; BMI 21.9
--- NOTE | 2022-04-29 11:37 | EDS_ITS ---
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 She now gets chemotherapy injections and weekly blood and platelet transfusions. She started getting platelets a 40 a.m. this morning and about 11 AM started to become itchy with a rash. She was also hypotensive so they called a rapid response and sent her to the ED. Patient had been given Benadryl prior to the infusion and an additional dose of 25 mg when she developed symptoms. On arrival here she states she feels a lot better and the itching is going away. She still does have a rash. She had no nausea vomiting diarrhea, chest pain or shortness of breath. She states she has had similar allergic reactions to infusions twice before. [facility] <PAVITHRA Pal - Last Filed: 04/29/22 17:39> [facility] Medical History Acute back pain Home Medications cholecalciferol (vitamin D3) 50 mcg (2,000 unit) capsule 2,000 unit PO DAILY VITAMIN D 11/27/19 [History Last Taken Unknown] acetaminophen 500 mg tablet 1,000 mg PO Q8 PRN Pain 12/20/19 [History Last Taken Unknown] alendronate 70 mg tablet (Fosamax) 70 mg PO QWEEK 10/01/21 [History Last Taken Unknown] amlodipine 5 mg tablet 5 mg PO DAILY 10/01/21 [History Last Taken Unknown] biotin 1,000 mcg chewable tablet 2,000 mcg PO DAILY 10/01/21 [History Last Taken Unknown] pantoprazole 20 mg tablet,delayed release 20 mg PO DAILY 10/01/21 [History Last Taken Unknown] potassium chloride 20 mEq tablet,extended release 20 meq PO BID 10/01/21 [History Last Taken Unknown] acyclovir 400 mg tablet 400 mg PO BID 11/16/21 [History Last Taken Unknown] cefdinir 300 mg capsule 300 mg PO BID 11/23/21 [History Last Taken Unknown] allopurinol 300 mg tablet 300 mg PO DAILY 12/03/21 [History Last Taken Unknown] cefdinir 300 mg capsule 300 mg PO BID 12/14/21 [History Last Taken Unknown] nitrofurantoin macrocrystal 100 mg capsule (Macrodantin) 100 mg PO BID 12/14/21 [History Last Taken Unknown] prednisone 20 mg tablet 40 mg PO DAILY 4 days #8 tabs 12/14/21 [Rx Last Taken Unknown] cyanocobalamin (vitamin B-12) 1,000 mcg/mL injection solution 1,000 mcg subcut QMONTH 04/15/22 [History Last Taken Unknown] Allergy/AdvReac Type Severity Reaction Status Date / Time adhesive tape Allergy Rash Verified 04/29/22 11:27 cefixime Allergy Rash Verified 04/29/22 11:27 ciprofloxacin [From Cipro] Allergy Swelling Verified 04/29/22 11:27 piperacillin [From Zosyn] Allergy Rash Verified 04/29/22 11:27 tazobactam [From Zosyn] Allergy Rash Verified 04/29/22 11:27 vancomycin Allergy Rash Verified 04/29/22 11:27 diphenhydramine AdvReac hyper Verified 04/29/22 11:28 [From Benadryl] Social History Smoking Status: Never smoker ROS <PAVITHRA Pal - Last Filed: 04/29/22 17:39> ROS ED ROS Narrative Constitutional: Negative for fever, chills, malaise. ENT: Negative for sore throat, ear pain, rhinorrhea. CVS: Negative for palpitations, chest pain, syncope. Respiratory: Negative for shortness of breath, cough, orthopnea. GI: Negative for abdominal pain, nausea, vomiting, diarrhea, constipation, melena, hematochezia. : Negative for dysuria, hematuria or frequency. Neuro: Negative for headache, motor/sensory dysfunction. Skin: Negative for rash, abscess, or wound. Musc: Negative for joint pain, swelling, trauma. Heme: Negative for easy bruising, bleeding, lymphadenopathy. EXAM <PAVITHRA Pal - Last Filed: 04/29/22 17:39> Physical Exam Narrative Exam Narrative: CONST: Patient sitting in no acute distress. EYES: Normal inspection. ENT: Normal inspection, moist mucous membranes. No angioedema, airway patent with midline uvula. NECK: Normal inspection. No stridor. RESP: No respiratory distress, CTAB. CVS: Regular rate and rhythm, no murmur, no gallop. ABD: Soft and nontender, no guarding or rebound. SKIN: Red macular rash on neck thorax and upper extremities. EXTREMITIES: Normal appearance, no pedal edema. NEURO: Oriented x4. PSYCH: Normal affect. Const Vital Signs: 04/29/22 11:20 04/29/22 11:28 04/29/22 12:37 Temperature 97.7 F L Temperature Source Oral Pulse Rate 87 91 84 Respiratory Rate 16 27 H 16 Blood Pressure 157/132 H 104/69 Blood Pressure Mean 140 80 Blood Pressure Source Blood Pressure Position Blood Pressure Location Pulse Ox 97 94 98 Oxygen Delivery Method Room Air Room Air Room Air 04/29/22 13:11 04/29/22 15:26 04/29/22 15:33 Temperature 98 F 98.6 F Temperature Source Temporal Temporal Pulse Rate 89 92 97 Respiratory Rate 17 16 16 Blood Pressure 137/126 H 117/78 108/76 Blood Pressure Mean 129 91 86 Blood Pressure Source Monitor Monitor Blood Pressure Position Sitting Sitting Blood Pressure Location Right Arm Right Arm Pulse Ox 97 100 98 Oxygen Delivery Method Room Air Room Air Room Air 04/29/22 15:37 04/29/22 15:51 04/29/22 16:09 Temperature 98 F Temperature Source Temporal Pulse Rate 97 92 87 Respiratory Rate 13 18 16 Blood Pressure 104/68 111/80 111/80 Blood Pressure Mean 80 90 90 Blood Pressure Source Blood Pressure Position Blood Pressure Location Pulse Ox 98 98 96 Oxygen Delivery Method Room Air Room Air Room Air <Dr. Ivette Urbina, DO - Last Filed: 05/02/22 21:36> Physical Exam Const Vital Signs: 04/29/22 11:20 04/29/22 11:28 04/29/22 12:37 Temperature 97.7 F L Temperature Source Oral Pulse Rate 87 91 84 Respiratory Rate 16 27 H 16 Blood Pressure 157/132 H 104/69 Blood Pressure Mean 140 80 Blood Pressure Source Blood Pressure Position Blood Pressure Location Pulse Ox 97 94 98 Oxygen Delivery Method Room Air Room Air Room Air 04/29/22 13:11 04/29/22 15:26 04/29/22 15:33 Temperature 98 F 98.6 F Temperature Source Temporal Temporal Pulse Rate 89 92 97 Respiratory Rate 17 16 16 Blood Pressure 137/126 H 117/78 108/76 Blood Pressure Mean 129 91 86 Blood Pressure Source Monitor Monitor Blood Pressure Position Sitting Sitting Blood Pressure Location Right Arm Right Arm Pulse Ox 97 100 98 Oxygen Delivery Method Room Air Room Air Room Air 04/29/22 15:37 04/29/22 15:51 04/29/22 16:09 Temperature 98 F Temperature Source Temporal Pulse Rate 97 92 87 Respiratory Rate 13 18 16 Blood Pressure 104/68 111/80 111/80 Blood Pressure Mean 80 90 90 Blood Pressure Source Blood Pressure Position Blood Pressure Location Pulse Ox 98 98 96 Oxygen Delivery Method Room Air Room Air Room Air MDM <PAVITHRA Pal - Last Filed: 04/29/22 17:39> [facility] Narrative Medical decision making narrative: Patient had a transfusion reaction receiving platelets. She has had this twice in the past. She was sent over for an itchy rash and hypotension. She arrives here awake and alert. Normal vital signs. Not hypotensive. She does have a red rash across her neck chest and upper extremities. She is speaking in full sentences in no distress. No stridor or wheezing. No other acute allergic symptoms. She had been given Benadryl prior to the platelets and an additional dose of IV Benadryl 25 mg there before being sent to the ED. Patient was given IV fluids and monitored and remained stable. Rash resolved. She was going to be discharged but requested that she receive the 1 units PRBCs that they had scheduled they are that she was unable to complete. I spoke with Dr. Quiles and he is fine with this as she has not had a reaction to the blood portion before. This was approved by blood bank and 1 unit given here. Patient discharged in stable condition. Of note Dr. Quiles says in the future that we will try and get her platelets that is a direct donor match which should prevent this from happening. Differential: Acute allergic reaction, anaphylaxis Consults: Dr. Quiles, oncology Lab Data Attestation: I reviewed the patient's lab results. Labs: Laboratory Results - last 24 hr 04/28/22 09:31 Blood Type A POSITIVE Antibody Screen NEGATIVE Crossmatch See Detail <Dr. Ivette Urbina DO - Last Filed: 05/02/22 21:36> [facility] Narrative Medical decision making narrative: Patient had a transfusion reaction receiving platelets. She has had this twice in the past. She was sent over for an itchy rash and hypotension. She arrives here awake and alert. Normal vital signs. Not hypotensive. She does have a red rash across her neck chest and upper extremities. She is speaking in full sentences in no distress. No stridor or wheezing. No other acute allergic symptoms. She had been given Benadryl prior to the platelets and an additional dose of IV Benadryl 25 mg there before being sent to the ED. Patient was given IV fluids and monitored and remained stable. Rash resolved. She was going to be discharged but requested that she receive the 1 units PRBCs that they had sc heduled they are that she was unable to complete. I spoke with Dr. Quiles and he is fine with this as she has not had a reaction to the blood portion before. This was approved by blood bank and 1 unit given here. Patient discharged in stable condition. Of note Dr. Quiles says in the future that we will try and get her platelets that is a direct donor match which should prevent this from happening. Differential: Acute allergic reaction, anaphylaxis Consults: Dr. Quiles, oncology I have personally performed a face to face assessment of the patient and have reviewed the TAY Note. I performed a substantive portion of the visit including all aspects of the following. My gallagher findings include: History is patient is a 76-year-old female with history of prior transfusion reaction and leukemia presenting after an episode of hives and hypotension after receiving platelet transfusion. Patient received IV Benadryl prior to arrival. She started IV fluids and her blood pressure is already improved. She has no signs of anaphylaxis on our evaluation and no oropharyngeal or respiratory compromise. Case was discussed with oncology who did not recommend any further intervention based on this. Patient was also due to receive transfusion of packed red blood cells. After discussion with the lab, who spoke with pathology, and oncology decision was made to give the patient a transfusion in the ER today. Patient is a discharged home. She has no further reactions. Other additions or changes: [None] Lab Data Labs: Laboratory Results - last 24 hr 04/28/22 09:31 Blood Type A POSITIVE Antibody Screen NEGATIVE Crossmatch See Detail Discharge Plan Triage Chief Complaint: Allergic Reaction Other Complaint: Hypotension ED Midlevel Provider: Maya Britt ED Provider: Ivette Urbina Dx/Rx/DC Orders Clinical Impression: Transfusion reaction Instructions: ED ADVERSE DRUG REACTION Allergic Prescriptions: No Action cholecalciferol (vitamin D3) 2,000 UNIT capsule 2,000 unit PO DAILY acetaminophen 500 MG tablet 1,000 mg PO Q8 PRN (Reason: Pain) Rx Instructions: Do not take more than 3000 mg Tylenol in a 24-hour period. alendronate [Fosamax] 70 mg Tablet 70 mg PO QWEEK amlodipine 5 mg Tablet 5 mg PO DAILY pantoprazole 20 mg Tablet,Delayed Release (Dr/Ec) 20 mg PO DAILY potassium chloride 20 mEq Tablet Extended Release 20 meq PO BID biotin 1,000 mcg Tablet,Chewable 2,000 mcg PO DAILY acyclovir 400 mg tablet 400 mg PO BID Label Comments: TAKE ONE TABLET BY MOUTH TWICE DAILY cefdinir 300 mg Capsule 300 mg PO BID allopurinol 300 mg tablet 300 mg PO DAILY Label Comments: TAKE ONE TABLET BY MOUTH ONCE DAILY nitrofurantoin macrocrystal [Macrodantin] 100 mg Capsule 100 mg PO BID Rx Instructions: must administer with a meal/food cefdinir 300 mg Capsule 300 mg PO BID prednisone 20 mg tablet 40 mg PO DAILY 4 Days Qty: 8 0RF cyanocobalamin (vitamin B-12) 1,000 mcg/mL solution 1,000 mcg subcut QMONTH Label Comments: INJECT 1ML SUBCUTANEOUSLY ONCE EVERY MONTH Primary Care Provider: Maegan Benavides NP Referrals: Maegan Benavides NP, [facility] [Primary Care Provider] - Activity Restrictions/Additional Instructions: Continue Benadryl every 6 hours as needed. Follow-up with Dr. Quiles. He said to avoid this in the future he may have to arrange getting directed donor platelets from the [place]. He can talk with you about this more. Disposition Disposition: Home, Self Care Discharge Date/Time: 04/29/22 18:52
[2022-04-29] MEDS: 0.9% Normal Saline 1,000 ML 999 ML IV (12:58)
--- NOTE | 2022-04-29 16:12 | ED.RN ---
pt continues to deny any reaction to the transfusion at this time.
== END 2022-04-29 18:52 | disposition home or self-care (01) ==
PROVIDERS: Emergency Provider Emergency Medicine; PCP Nurse Practitioner Family; Visit Provider Emergency Medicine
DX: T80.51XA Anaphylactic reaction due to administration of blood and blood products, initial encounter (principal); C92.00 Acute myeloblastic leukemia, not having achieved remission; D61.818 Other pancytopenia; X58.XXXA Exposure to other specified factors, initial encounter
CPT/HCPCS: 36430; 86850; 86900; 86901; 86920; 86922; 86965; 96360; 99282; J7030; J7040; J7120; P9035; P9040; A4216

== ENCOUNTER → 2022-04-29 | Outpatient (CLI) | payer MEDICARE, BC, SELFPAY ==
[2022-04-29] MEDS: DiphenhydrAMINE 25 MG Capsule PO (08:10)
[2022-04-29] MEDS: 0.9% NaCl VAD Flush IV (08:10)
[2022-04-29] MEDS: Hydrocortisone Sod Succinate 100 MG/2 ML Vial IV (08:10)
[2022-04-29 08:17] VITALS: BP 153/75; PULSE 85; RESP 16; TEMP 35.9; O2SAT 100; BMI 31.8
[2022-04-29 09:13] VITALS: BP 125/73; PULSE 85; RESP 16; TEMP 35.9; O2SAT 99
[2022-04-29 09:25] VITALS: BP 124/64; PULSE 82; RESP 16; TEMP 36.1; O2SAT 98
[2022-04-29 10:07] VITALS: BP 117/62; PULSE 80; RESP 16; TEMP 35.8; O2SAT 96
[2022-04-29 10:20] VITALS: BP 124/54; PULSE 105; RESP 16; TEMP 36.5; O2SAT 95
[2022-04-29] MEDS: DiphenhydrAMINE 50 MG/ML Syringe 25 MG IV (10:40)
[2022-04-29 11:03] VITALS: BP 49/21; BP 64/31
== END | disposition home or self-care (01) ==
LOC: MEDOUTP 07:50
PROVIDERS: PCP Nurse Practitioner Family; Referring Provider Internal Medicine Hematology & Oncology; Visit Provider Internal Medicine Hematology & Oncology
DX: D61.818 Other pancytopenia (principal)
CPT/HCPCS: 36430; 86850; 86900; 86901; 86920; 86922; 86965; J7040; P9035; A4216

== ENCOUNTER → 2022-05-06 | Outpatient (CLI) | payer MEDICARE, BC, SELFPAY ==
[2022-05-06 10:29] VITALS: BP 138/82; PULSE 98; RESP 16; TEMP 36.1; O2SAT 98; BMI 31.3
[2022-05-06 11:17] VITALS: BP 136/79; PULSE 85; RESP 16; TEMP 36.1; O2SAT 97
[2022-05-06 11:40] VITALS: BP 131/63; PULSE 91; RESP 16; TEMP 36.6
[2022-05-06 12:21] VITALS: BP 121/65; PULSE 91; RESP 16; TEMP 36; O2SAT 96
== END | disposition home or self-care (01) ==
LOC: MEDOUTP 10:08
PROVIDERS: PCP Nurse Practitioner Family; Referring Provider Internal Medicine Hematology & Oncology; Visit Provider Internal Medicine Hematology & Oncology
DX: Z51.89 Encounter for other specified aftercare (principal); D61.818 Other pancytopenia
CPT/HCPCS: 36430; 86900; 86901; 86965; J7040; P9035; A4216

== ENCOUNTER → 2022-05-10 | Outpatient (CLI) | payer MEDICARE, BC, SELFPAY ==
[2022-05-10 08:34] VITALS: BP 150/79; PULSE 99; RESP 16; TEMP 36.1; O2SAT 99
[2022-05-10 09:15] VITALS: BP 122/65; PULSE 81; RESP 16; TEMP 36.1; O2SAT 96
[2022-05-10 09:35] VITALS: BP 125/67; PULSE 80; RESP 16; TEMP 35.9
[2022-05-10 10:06] VITALS: BP 125/64; PULSE 79; RESP 16; TEMP 35.9; O2SAT 98
[2022-05-10 11:06] VITALS: BP 138/69; PULSE 81; RESP 16; TEMP 36.1; O2SAT 98
[2022-05-10 11:43] VITALS: BP 134/69; PULSE 79; RESP 16; TEMP 35.7; O2SAT 100
== END | disposition home or self-care (01) ==
LOC: MEDOUTP 08:20
PROVIDERS: PCP Nurse Practitioner Family; Referring Provider Internal Medicine Hematology & Oncology; Visit Provider Internal Medicine Hematology & Oncology
DX: D61.818 Other pancytopenia (principal)
CPT/HCPCS: 36430; 86850; 86900; 86901; 86920; 86922; 86965; J7040; P9016; P9035; A4216

== ENCOUNTER → 2022-05-12 | Outpatient (CLI) | payer MEDICARE, BC, SELFPAY ==
[2022-05-12 09:06] VITALS: BP 153/74; PULSE 91; RESP 16; TEMP 36.4; O2SAT 100; BMI 31.8
[2022-05-12] MEDS: 0.9% NaCl VAD Flush IV (09:09)
[2022-05-12 09:53] VITALS: BP 122/62; PULSE 77; RESP 16; TEMP 36.4; O2SAT 96
[2022-05-12 10:25] VITALS: BP 123/63; PULSE 78; RESP 16; TEMP 36.3
[2022-05-12 10:53] VITALS: BP 133/67; PULSE 75; RESP 16; TEMP 36.4
[2022-05-12 11:08] VITALS: BP 136/66; PULSE 85; RESP 16; TEMP 36.1; O2SAT 100
== END | disposition home or self-care (01) ==
LOC: MEDOUTP 08:56
PROVIDERS: PCP Nurse Practitioner Family; Referring Provider Internal Medicine Hematology & Oncology; Visit Provider Internal Medicine Hematology & Oncology
DX: Z51.89 Encounter for other specified aftercare (principal); D61.818 Other pancytopenia
CPT/HCPCS: 36430; 86900; 86901; 86965; J7040; P9035; A4216

== ENCOUNTER 2022-05-20 08:52 | Outpatient (CLI) | payer MEDICARE, BC, SELFPAY ==
[2022-05-20] VITALS (8 sets, daily range): BP systolic 113–165; BP diastolic 61–77; PULSE 81–99; RESP 16; TEMP 35.9–36.3; O2SAT 95–99; BMI 32.1
[2022-05-20] MEDS: 0.9% NaCl VAD Flush IV (09:20)
== END 2022-05-20 23:59 | disposition home or self-care (01) ==
LOC: MEDOUTP 08:53
PROVIDERS: PCP Nurse Practitioner Family; Referring Provider Internal Medicine Hematology & Oncology; Visit Provider Internal Medicine Hematology & Oncology
DX: Z51.89 Encounter for other specified aftercare (principal); D61.818 Other pancytopenia
CPT/HCPCS: 36430; 86850; 86900; 86901; 86920; 86922; 86965; J7040; P9035; P9040; A4216

== ENCOUNTER 2022-05-27 08:29 | Outpatient (CLI) | payer MEDICARE, BC, SELFPAY ==
[2022-05-27] VITALS (7 sets, daily range): BP systolic 117–138; BP diastolic 64–75; PULSE 82–96; RESP 16; TEMP 36.1–36.3; O2SAT 97–100; BMI 31.8
[2022-05-27] MEDS: 0.9% NaCl VAD Flush IV ×2 (08:57→10:29)
== END 2022-05-27 23:59 | disposition home or self-care (01) ==
LOC: MEDOUTP 08:29
PROVIDERS: PCP Nurse Practitioner Family; Referring Provider Internal Medicine Hematology & Oncology; Visit Provider Internal Medicine Hematology & Oncology
DX: D61.818 Other pancytopenia (principal)
CPT/HCPCS: 36430; 86850; 86900; 86901; 86920; 86922; 86965; J7040; P9035; P9040; A4216

== ENCOUNTER 2022-06-01 07:50 | Outpatient (CLI) | payer MEDICARE, BC, SELFPAY ==
[2022-06-01 08:10] VITALS: BP 142/74; PULSE 99; RESP 16; TEMP 36.2; O2SAT 100; BMI 31.5
[2022-06-01] MEDS: 0.9% NaCl VAD Flush IV (08:17)
[2022-06-01 08:54] VITALS: BP 130/67; PULSE 91; RESP 16; TEMP 36.3; O2SAT 94
[2022-06-01 09:06] VITALS: BP 131/66; PULSE 87; RESP 16; TEMP 36.2; O2SAT 95
[2022-06-01 09:41] VITALS: BP 112/54; PULSE 87; RESP 16; TEMP 36.3; O2SAT 100
[2022-06-01 10:37] VITALS: BP 129/68; PULSE 80; RESP 16; TEMP 36.4; O2SAT 95
[2022-06-01 11:37] VITALS: BP 133/64; PULSE 86; RESP 16; TEMP 36.9; O2SAT 98
== END 2022-06-01 07:51 | disposition home or self-care (01) ==
LOC: MEDOUTP 07:50
PROVIDERS: PCP Nurse Practitioner Family; Referring Provider Internal Medicine Hematology & Oncology; Visit Provider Internal Medicine Hematology & Oncology
DX: D61.818 Other pancytopenia (principal)
CPT/HCPCS: 36430; 86850; 86900; 86901; 86920; 86922; 86965; J7040; P9016; P9035; A4216

== ENCOUNTER 2022-06-07 10:31 | Outpatient (CLI) | payer MEDICARE, BC, SELFPAY ==
[2022-06-07 10:40] VITALS: BP 137/71; PULSE 91; RESP 16; TEMP 36.4; O2SAT 97; BMI 31.5
--- NOTE | 2022-06-07 10:51 | NURSING ---
Pt reports she took premeds at home (0930 prednisone and 0935 atarax, benadryl, and tyenol).
[2022-06-07 11:30] VITALS: BP 125/71; PULSE 81; RESP 16; O2SAT 97
[2022-06-07 11:46] VITALS: BP 130/67; PULSE 79; RESP 16; TEMP 36.3
[2022-06-07 12:20] VITALS: BP 132/71; BP 134/69; PULSE 80; PULSE 81; RESP 16; TEMP 36.1; TEMP 36.2; O2SAT 95
== END 2022-06-07 10:32 | disposition home or self-care (01) ==
LOC: MEDOUTP 10:31
PROVIDERS: PCP Nurse Practitioner Family; Referring Provider Internal Medicine Hematology & Oncology; Visit Provider Internal Medicine Hematology & Oncology
DX: Z51.89 Encounter for other specified aftercare (principal); D61.818 Other pancytopenia
CPT/HCPCS: 36430; 86900; 86901; 86965; J7040; P9035; A4216

== ENCOUNTER 2022-06-10 12:27 | Outpatient (CLI) | payer MEDICARE, BC, SELFPAY ==
[2022-06-10 12:35] VITALS: BP 130/62; PULSE 89; RESP 16; TEMP 36.2; O2SAT 97
[2022-06-10 13:15] VITALS: BP 112/61; PULSE 84; RESP 16; TEMP 35.7; O2SAT 96
[2022-06-10 13:35] VITALS: BP 114/61; PULSE 79; RESP 16; TEMP 35.9; O2SAT 94
== END 2022-06-10 12:28 | disposition home or self-care (01) ==
LOC: MEDOUTP 12:27
PROVIDERS: PCP Nurse Practitioner Family; Referring Provider Internal Medicine Hematology & Oncology; Visit Provider Internal Medicine Hematology & Oncology
DX: D61.818 Other pancytopenia (principal)
CPT/HCPCS: 36430; 86900; 86901; 86965; J7040; P9035; A4216

== ENCOUNTER → 2022-06-13 | Outpatient (CLI) | payer MEDICARE, BC, SELFPAY | END | disposition home or self-care (01) | LOC: LAB 12:28 | PROVIDERS: PCP Nurse Practitioner Family; Referring Provider Internal Medicine Hematology & Oncology; Visit Provider Internal Medicine Hematology & Oncology | DX: D61.818 Other pancytopenia (principal) | CPT/HCPCS: 86900; 86901 ==

== ENCOUNTER 2022-06-14 08:23 | Outpatient (CLI) | payer MEDICARE, BC, SELFPAY ==
[2022-06-14 08:34] VITALS: BP 139/82; PULSE 101; RESP 16; TEMP 36.2; O2SAT 98
[2022-06-14 09:17] VITALS: BP 112/66; PULSE 85; RESP 16; TEMP 36.2
[2022-06-14 09:31] VITALS: BP 118/69; PULSE 82; RESP 16; TEMP 36.2; O2SAT 96
[2022-06-14 10:09] VITALS: BP 124/72; PULSE 80; RESP 16; TEMP 36; O2SAT 96
== END 2022-06-14 08:24 | disposition home or self-care (01) ==
LOC: MEDOUTP 08:23
PROVIDERS: PCP Nurse Practitioner Family; Referring Provider Internal Medicine Hematology & Oncology; Visit Provider Internal Medicine Hematology & Oncology
DX: Z51.89 Encounter for other specified aftercare (principal); D61.818 Other pancytopenia
CPT/HCPCS: 36430; 86900; 86901; 86965; J7040; P9035; A4216

== ENCOUNTER → 2022-06-16 | Outpatient (CLI) | payer MEDICARE, BC, SELFPAY | END | disposition home or self-care (01) | LOC: LABSPEC 12:54 | PROVIDERS: PCP Nurse Practitioner Family; Referring Provider Internal Medicine Hematology & Oncology; Visit Provider Internal Medicine Hematology & Oncology | DX: R69 Illness, unspecified (principal) | CPT/HCPCS: 86850; 86900; 86901; 86920; 86922 ==

== ENCOUNTER 2022-06-17 07:52 | Outpatient (CLI) | payer MEDICARE, BC, SELFPAY ==
[2022-06-17] VITALS (9 sets, daily range): BP systolic 119–142; BP diastolic 67–84; PULSE 78–100; RESP 16; TEMP 35.7–36.3; O2SAT 94–99; BMI 31.5
[2022-06-17] MEDS: 0.9% NaCl VAD Flush IV (08:27)
== END 2022-06-17 07:53 | disposition home or self-care (01) ==
LOC: MEDOUTP 07:53
PROVIDERS: PCP Nurse Practitioner Family; Referring Provider Internal Medicine Hematology & Oncology; Visit Provider Internal Medicine Hematology & Oncology
DX: Z51.89 Encounter for other specified aftercare (principal); D61.818 Other pancytopenia
CPT/HCPCS: 36430; 86850; 86900; 86901; 86920; 86922; 86965; J7040; P9016; P9035; A4216

== ENCOUNTER 2022-06-21 12:20 | Outpatient (CLI) | payer MEDICARE, BC, SELFPAY ==
[2022-06-21] MEDS: 0.9% NaCl VAD Flush IV (13:27)
[2022-06-21 13:28] VITALS: BP 145/81; PULSE 105; RESP 16; TEMP 37.1; O2SAT 97; BMI 31.5
[2022-06-21 14:18] VITALS: BP 116/63; PULSE 91; RESP 16; O2SAT 95
[2022-06-21 14:57] VITALS: BP 110/63; PULSE 85; TEMP 36.9
== END 2022-06-21 12:21 | disposition home or self-care (01) ==
LOC: MEDOUTP 12:21
PROVIDERS: PCP Nurse Practitioner Family; Referring Provider Internal Medicine Hematology & Oncology; Visit Provider Internal Medicine Hematology & Oncology
DX: Z51.89 Encounter for other specified aftercare (principal); D61.818 Other pancytopenia
CPT/HCPCS: 36430; 86900; 86901; 86965; J7040; P9035; A4216

== ENCOUNTER 2022-06-24 10:26 | Outpatient (CLI) | payer MEDICARE, BC, SELFPAY ==
[2022-06-24] MEDS: 0.9% NaCl VAD Flush IV (10:40)
[2022-06-24 10:48] VITALS: BP 155/86; PULSE 107; RESP 16; TEMP 36.3; O2SAT 97
[2022-06-24 11:22] VITALS: BP 132/76; PULSE 95; RESP 16; TEMP 36.6
[2022-06-24 11:44] VITALS: BP 156/83; PULSE 97; RESP 16; TEMP 35.9; O2SAT 98
== END 2022-06-24 10:27 | disposition home or self-care (01) ==
LOC: MEDOUTP 10:26
PROVIDERS: PCP Nurse Practitioner Family; Referring Provider Internal Medicine Hematology & Oncology; Visit Provider Internal Medicine Hematology & Oncology
DX: D61.818 Other pancytopenia (principal)
CPT/HCPCS: 36430; 86900; 86901; 86965; J7040; P9035; A4216

== ENCOUNTER 2022-07-01 07:58 | Outpatient (CLI) | payer MEDICARE, BC, SELFPAY ==
[2022-07-01] VITALS (11 sets, daily range): BP systolic 108–132; BP diastolic 60–78; PULSE 82–95; RESP 16; TEMP 35.9–36.2; O2SAT 93–100
[2022-07-01] MEDS: 0.9% NaCl VAD Flush IV (08:16)
== END 2022-07-01 07:59 | disposition home or self-care (01) ==
LOC: MEDOUTP 07:58
PROVIDERS: PCP Nurse Practitioner Family; Referring Provider Internal Medicine Hematology & Oncology; Visit Provider Internal Medicine Hematology & Oncology
DX: D61.818 Other pancytopenia (principal)
CPT/HCPCS: 36430; 86850; 86900; 86901; 86920; 86922; 86965; J7040; P9016; P9035; A4216

== ENCOUNTER 2022-07-08 07:53 | Outpatient (CLI) | payer MEDICARE, BC, SELFPAY ==
[2022-07-08 08:13] VITALS: BP 142/78; PULSE 94; RESP 16; TEMP 35.9; O2SAT 96; BMI 31.6
[2022-07-08 08:49] VITALS: BP 121/68; PULSE 78; RESP 16; TEMP 35.9; O2SAT 92
[2022-07-08 09:07] VITALS: BP 120/69; PULSE 77; RESP 16; TEMP 35.8; O2SAT 93
[2022-07-08 09:37] VITALS: BP 113/65; PULSE 75; RESP 16; TEMP 35.8; O2SAT 95
[2022-07-08 10:13] VITALS: BP 119/70; PULSE 80; RESP 16; TEMP 35.8; O2SAT 94
== END 2022-07-08 07:54 | disposition home or self-care (01) ==
LOC: MEDOUTP 07:53
PROVIDERS: PCP Nurse Practitioner Family; Referring Provider Internal Medicine Hematology & Oncology; Visit Provider Internal Medicine Hematology & Oncology
DX: Z51.89 Encounter for other specified aftercare (principal); D61.818 Other pancytopenia
CPT/HCPCS: 36430; 86900; 86901; 86965; J7040; P9035; A4216

== ENCOUNTER 2022-07-15 10:16 | Outpatient (CLI) | payer MEDICARE, BC, SELFPAY ==
[2022-07-15] MEDS: 0.9% NaCl VAD Flush IV (10:29)
[2022-07-15 10:42] VITALS: BP 135/75; PULSE 96; RESP 16; TEMP 36.7; O2SAT 96
[2022-07-15 11:20] VITALS: BP 107/66; PULSE 87; RESP 16; TEMP 35.5; O2SAT 97
[2022-07-15 11:52] VITALS: BP 101/71; PULSE 80; RESP 16; TEMP 35.7; O2SAT 95
[2022-07-15 12:08] VITALS: BP 152/73; PULSE 86; RESP 14; TEMP 35.8; O2SAT 93
[2022-07-15 13:00] VITALS: BP 116/63; PULSE 87; RESP 16; TEMP 35.7; O2SAT 93
[2022-07-15 13:59] VITALS: BP 125/70; PULSE 89; RESP 16; TEMP 35.5; O2SAT 94
== END 2022-07-15 10:17 | disposition home or self-care (01) ==
LOC: MEDOUTP 10:16
PROVIDERS: PCP Nurse Practitioner Family; Referring Provider Internal Medicine Hematology & Oncology; Visit Provider Internal Medicine Hematology & Oncology
DX: D61.818 Other pancytopenia (principal)
CPT/HCPCS: 36430; 86900; 86901; 86965; J7040; P9035; A4216

== ENCOUNTER 2022-07-22 10:14 | Outpatient (CLI) | payer MEDICARE, BC, SELFPAY ==
[2022-07-22] VITALS (8 sets, daily range): BP systolic 117–145; BP diastolic 60–82; PULSE 69–109; RESP 16; TEMP 35.8–36.6; O2SAT 93–100; BMI 31.3
[2022-07-22] MEDS: 0.9% NaCl VAD Flush IV (10:55)
== END 2022-07-22 10:15 | disposition home or self-care (01) ==
LOC: MEDOUTP 10:14
PROVIDERS: PCP Nurse Practitioner Family; Referring Provider Internal Medicine Hematology & Oncology; Visit Provider Internal Medicine Hematology & Oncology
DX: D61.818 Other pancytopenia (principal)
CPT/HCPCS: 36430; 86850; 86900; 86901; 86920; 86922; 86965; J7040; P9016; P9035; A4216

== ENCOUNTER 2022-07-29 07:56 | Outpatient (CLI) | payer MEDICARE, BC, SELFPAY ==
[2022-07-29] VITALS (8 sets, daily range): BP systolic 111–128; BP diastolic 63–74; PULSE 94–100; RESP 14–16; TEMP 35.7–36.2; O2SAT 92–97; BMI 28.3
[2022-07-29] MEDS: 0.9% NaCl VAD Flush IV (08:19)
== END 2022-07-29 07:57 | disposition home or self-care (01) ==
LOC: MEDOUTP 07:56
PROVIDERS: PCP Nurse Practitioner Family; Referring Provider Internal Medicine Hematology & Oncology; Visit Provider Internal Medicine Hematology & Oncology
DX: D61.818 Other pancytopenia (principal)
CPT/HCPCS: 36430; 86644; 86850; 86900; 86901; 86920; 86922; 86965; P9035; P9040; A4216

== ENCOUNTER 2022-08-05 10:20 | Outpatient (CLI) | payer MEDICARE, BC, SELFPAY ==
[2022-08-05 10:50] VITALS: BP 113/67; PULSE 88; RESP 16; TEMP 35.9; O2SAT 100; BMI 31.3
[2022-08-05] MEDS: 0.9% NaCl VAD Flush IV (11:06)
[2022-08-05 11:33] VITALS: BP 118/63; PULSE 88; RESP 16; TEMP 36.1
[2022-08-05 11:54] VITALS: BP 117/59; PULSE 89; RESP 16; TEMP 36.1
[2022-08-05 12:22] VITALS: BP 114/61; PULSE 88; RESP 16; TEMP 35.9; O2SAT 94
[2022-08-05 13:23] VITALS: BP 116/64; PULSE 78
== END 2022-08-05 10:21 | disposition home or self-care (01) ==
LOC: MEDOUTP 10:20
PROVIDERS: PCP Nurse Practitioner Family; Referring Provider Internal Medicine Hematology & Oncology; Visit Provider Internal Medicine Hematology & Oncology
DX: D61.818 Other pancytopenia (principal)
CPT/HCPCS: 36430; 86900; 86901; 86965; J7040; P9035; A4216

== ENCOUNTER 2022-08-10 09:26 | Outpatient (CLI) | payer MEDICARE, BC, SELFPAY ==
[2022-08-10 09:39] VITALS: BP 126/72; PULSE 94; RESP 16; TEMP 36.1; O2SAT 97; BMI 31.8
[2022-08-10 10:15] VITALS: BP 107/61; PULSE 84; RESP 16; TEMP 36.4
[2022-08-10 11:19] VITALS: BP 136/75; PULSE 71; RESP 16; TEMP 35.8; O2SAT 100
[2022-08-10 12:00] VITALS: BP 129/75; PULSE 74; RESP 16; TEMP 36.1; O2SAT 100
== END 2022-08-10 09:27 | disposition home or self-care (01) ==
LOC: MEDOUTP 09:26
PROVIDERS: PCP Nurse Practitioner Family; Referring Provider Internal Medicine Hematology & Oncology; Visit Provider Internal Medicine Hematology & Oncology
DX: D61.818 Other pancytopenia (principal)
CPT/HCPCS: 36430; 86850; 86900; 86901; 86920; 86922; J7040; P9016; A4216

== ENCOUNTER 2022-08-12 08:27 | Outpatient (CLI) | payer MEDICARE, BC, SELFPAY ==
[2022-08-12] MEDS: 0.9% NaCl VAD Flush IV (08:37)
[2022-08-12 08:44] VITALS: BP 137/79; PULSE 96; RESP 16; TEMP 35.6; O2SAT 97; BMI 31.8
[2022-08-12] MEDS: predniSONE 20 MG Tablet PO (09:36)
[2022-08-12 10:25] VITALS: BP 120/64; PULSE 91; RESP 16; TEMP 35.7; O2SAT 96
[2022-08-12 11:15] VITALS: BP 127/68; PULSE 84; RESP 16; TEMP 35.7; O2SAT 95
[2022-08-12 12:10] VITALS: BP 140/74; PULSE 91; RESP 16; TEMP 35.5; O2SAT 95
[2022-08-12 12:52] VITALS: BP 126/66; PULSE 95; RESP 16; TEMP 36.1; O2SAT 94
== END 2022-08-12 08:28 | disposition home or self-care (01) ==
LOC: MEDOUTP 08:28
PROVIDERS: PCP Nurse Practitioner Family; Referring Provider Internal Medicine Hematology & Oncology; Visit Provider Internal Medicine Hematology & Oncology
DX: D61.818 Other pancytopenia (principal)
CPT/HCPCS: 36430; 86900; 86901; 86965; J7040; P9035; A4216

== ENCOUNTER 2022-08-16 10:27 | Outpatient (CLI) | payer MEDICARE, BC, SELFPAY ==
[2022-08-16] MEDS: 0.9% NaCl VAD Flush IV (10:48)
[2022-08-16 10:51] VITALS: BP 107/69; PULSE 98; RESP 16; TEMP 36; O2SAT 92; BMI 31.8
[2022-08-16 11:27] VITALS: BP 121/71; PULSE 85; RESP 16; TEMP 36.6
[2022-08-16 12:27] VITALS: BP 132/81; PULSE 83; RESP 16; TEMP 36.6
[2022-08-16 13:21] VITALS: BP 136/77; PULSE 85; RESP 16; TEMP 36.1; O2SAT 99
== END 2022-08-16 10:28 | disposition home or self-care (01) ==
LOC: MEDOUTP 10:28
PROVIDERS: PCP Nurse Practitioner Family; Referring Provider Internal Medicine Hematology & Oncology; Visit Provider Internal Medicine Hematology & Oncology
DX: D61.818 Other pancytopenia (principal)
CPT/HCPCS: 36430; 86850; 86900; 86901; 86920; 86922; J7040; P9016; A4216

== ENCOUNTER 2022-08-19 12:07 | Outpatient (CLI) | payer MEDICARE, BC, SELFPAY ==
[2022-08-19 12:30] VITALS: BP 142/75; PULSE 98; RESP 16; TEMP 35.8; O2SAT 99; BMI 31.8
[2022-08-19 13:27] VITALS: BP 126/68; PULSE 93; RESP 16; TEMP 35.9
[2022-08-19 13:46] VITALS: BP 130/65; PULSE 95; RESP 16; TEMP 35.9; O2SAT 100
== END 2022-08-19 12:08 | disposition home or self-care (01) ==
LOC: MEDOUTP 12:07
PROVIDERS: PCP Nurse Practitioner Family; Referring Provider Internal Medicine Hematology & Oncology; Visit Provider Internal Medicine Hematology & Oncology
DX: D61.818 Other pancytopenia (principal)
CPT/HCPCS: 36430; 86900; 86901; 86965; J7040; P9035; A4216

== ENCOUNTER 2022-08-30 12:35 | Outpatient (CLI) | payer MEDICARE, BC, SELFPAY ==
[2022-08-30] MEDS: 0.9% NaCl VAD Flush IV ×2 (13:13→14:37)
[2022-08-30 13:14] VITALS: BP 140/84; PULSE 107; RESP 16; TEMP 35.9; O2SAT 99; BMI 31.5
[2022-08-30 13:52] VITALS: BP 130/81; PULSE 96; RESP 16; TEMP 35.9; O2SAT 96
== END 2022-08-30 12:36 | disposition home or self-care (01) ==
LOC: MEDOUTP 12:35
PROVIDERS: PCP Nurse Practitioner Family; Visit Provider Internal Medicine Hematology & Oncology
DX: D61.818 Other pancytopenia (principal)
CPT/HCPCS: 36430; 86900; 86901; 86965; J7040; P9035; A4216

== ENCOUNTER 2022-09-02 11:18 | Outpatient (CLI) | payer MEDICARE, BC, SELFPAY ==
[2022-09-02 11:28] VITALS: PULSE 96; RESP 16; TEMP 36.2; O2SAT 98; BMI 31.3
[2022-09-02 12:06] VITALS: BP 127/66; PULSE 87; RESP 16; TEMP 36.2
[2022-09-02 12:37] VITALS: BP 123/70; PULSE 84; RESP 16; TEMP 36.2
[2022-09-02 13:06] VITALS: BP 126/76; PULSE 90; RESP 14; TEMP 35.9; O2SAT 96
[2022-09-02 13:40] VITALS: BP 116/65; PULSE 92; RESP 16; TEMP 36.1; O2SAT 95
[2022-09-02 14:08] VITALS: BP 121/67; PULSE 97; RESP 16; TEMP 36.1; O2SAT 93
== END 2022-09-02 11:19 | disposition home or self-care (01) ==
LOC: MEDOUTP 11:20
PROVIDERS: PCP Nurse Practitioner Family; Referring Provider Internal Medicine Hematology & Oncology; Visit Provider Internal Medicine Hematology & Oncology
DX: D61.818 Other pancytopenia (principal)
CPT/HCPCS: 36430; 86900; 86901; 86965; J7040; P9035; A4216

== ENCOUNTER 2022-09-06 10:18 | Outpatient (CLI) | payer MEDICARE, BC, SELFPAY ==
[2022-09-06] MEDS: 0.9% NaCl VAD Flush IV (10:30)
[2022-09-06 10:32] VITALS: BP 155/81; PULSE 109; RESP 16; TEMP 36.4; O2SAT 98; BMI 31.3
[2022-09-06 11:00] VITALS: BP 124/73; PULSE 72; RESP 16; TEMP 36.4; O2SAT 96
[2022-09-06 12:00] VITALS: BP 124/70; PULSE 90; RESP 16; TEMP 36.2; O2SAT 98
[2022-09-06 13:18] VITALS: BP 123/75; PULSE 93; RESP 16; TEMP 36.2; O2SAT 97
[2022-09-06 14:18] VITALS: BP 125/70; PULSE 88; RESP 16; TEMP 36.2; O2SAT 97
[2022-09-06 14:28] VITALS: BP 126/76; PULSE 94; RESP 16; TEMP 35.9; O2SAT 94
== END 2022-09-06 10:19 | disposition home or self-care (01) ==
LOC: MEDOUTP 10:18
PROVIDERS: PCP Nurse Practitioner Family; Referring Provider Internal Medicine Hematology & Oncology; Visit Provider Internal Medicine Hematology & Oncology
DX: D61.818 Other pancytopenia (principal)
CPT/HCPCS: 36430; 86850; 86900; 86901; 86920; 86922; J7040; P9016; A4216

== ENCOUNTER 2022-09-09 09:25 | Outpatient (CLI) | payer MEDICARE, BC, SELFPAY ==
[2022-09-09] MEDS: 0.9% NaCl VAD Flush IV ×2 (09:43→12:29)
[2022-09-09 09:48] VITALS: BP 144/83; PULSE 104; RESP 16; TEMP 36.2; O2SAT 96
[2022-09-09 10:37] VITALS: BP 129/76; PULSE 93; RESP 16; TEMP 36.1; O2SAT 99
[2022-09-09 10:57] VITALS: BP 128/72; PULSE 88; RESP 16; TEMP 36.1; O2SAT 93
[2022-09-09 11:26] VITALS: BP 133/78; PULSE 86; RESP 16; TEMP 35.8; O2SAT 95
[2022-09-09 11:51] VITALS: BP 137/79; PULSE 91; RESP 16; TEMP 35.8; O2SAT 96
[2022-09-09 12:32] VITALS: BP 144/83; PULSE 94; TEMP 35.7
== END 2022-09-09 09:26 | disposition home or self-care (01) ==
LOC: MEDOUTP 09:25
PROVIDERS: PCP Nurse Practitioner Family; Referring Provider Internal Medicine Hematology & Oncology; Visit Provider Internal Medicine Hematology & Oncology
DX: D61.818 Other pancytopenia (principal)
CPT/HCPCS: 36430; 86900; 86901; 86965; J7040; P9035; A4216

== ENCOUNTER 2022-09-16 09:30 | Outpatient (CLI) | payer MEDICARE, BC, SELFPAY ==
[2022-09-16] MEDS: 0.9% NaCl VAD Flush IV ×2 (09:33→11:34)
[2022-09-16 09:38] VITALS: BP 127/71; PULSE 104; RESP 16; TEMP 36; O2SAT 95
[2022-09-16 10:04] VITALS: BP 122/67; PULSE 102; RESP 16; TEMP 35.9
[2022-09-16 10:32] VITALS: BP 121/70; PULSE 91; RESP 16; TEMP 36
[2022-09-16 11:00] VITALS: BP 136/71; PULSE 95; RESP 16; TEMP 35.8
[2022-09-16 11:33] VITALS: BP 121/71; PULSE 94; RESP 16; TEMP 35.8; O2SAT 97
== END 2022-09-16 09:31 | disposition home or self-care (01) ==
LOC: MEDOUTP 09:30
PROVIDERS: PCP Nurse Practitioner Family; Referring Provider Internal Medicine Hematology & Oncology; Visit Provider Internal Medicine Hematology & Oncology
DX: D61.818 Other pancytopenia (principal)
CPT/HCPCS: 36430; 86900; 86901; 86965; J7040; P9035; A4216

== ENCOUNTER 2022-09-20 08:16 | Outpatient (CLI) | payer MEDICARE, BC, SELFPAY ==
[2022-09-20] VITALS (7 sets, daily range): BP systolic 136–154; BP diastolic 73–80; PULSE 76–87; RESP 16; TEMP 36.1–36.4; O2SAT 95–99
[2022-09-20] MEDS: 0.9% NaCl VAD Flush IV ×2 (08:25→13:01)
== END 2022-09-20 08:17 | disposition home or self-care (01) ==
LOC: MEDOUTP 08:16
PROVIDERS: PCP Nurse Practitioner Family; Referring Provider Internal Medicine Hematology & Oncology; Visit Provider Internal Medicine Hematology & Oncology
DX: D61.818 Other pancytopenia (principal)
CPT/HCPCS: 36430; 86850; 86900; 86901; 86920; 86922; J7040; P9016; A4216

== ENCOUNTER 2022-09-23 09:24 | Outpatient (CLI) | payer MEDICARE, BC, SELFPAY ==
[2022-09-23 09:34] VITALS: BP 141/76; PULSE 80; RESP 16; TEMP 36.1; O2SAT 99; BMI 31.7
[2022-09-23] MEDS: 0.9% NaCl VAD Flush IV ×2 (09:43→11:41)
[2022-09-23 10:24] VITALS: BP 152/78; PULSE 76; RESP 16; TEMP 35.8; O2SAT 96
[2022-09-23 11:14] VITALS: BP 158/76; PULSE 78; RESP 16; TEMP 36.3; O2SAT 99
== END 2022-09-23 09:25 | disposition home or self-care (01) ==
LOC: MEDOUTP 09:24
PROVIDERS: PCP Nurse Practitioner Family; Referring Provider Internal Medicine Hematology & Oncology; Visit Provider Internal Medicine Hematology & Oncology
DX: D61.818 Other pancytopenia (principal)
CPT/HCPCS: 36430; 86900; 86901; 86965; J7040; P9035; A4216

== ENCOUNTER 2022-09-27 12:33 | Outpatient (CLI) | payer MEDICARE, BC, SELFPAY ==
[2022-09-27] MEDS: 0.9% NaCl VAD Flush IV ×2 (12:54→15:06)
[2022-09-27 12:55] VITALS: BP 155/89; PULSE 86; RESP 16; TEMP 35.9; O2SAT 100; BMI 31.7
[2022-09-27 13:22] VITALS: BP 138/82; PULSE 84; RESP 16; TEMP 35.8
[2022-09-27 13:56] VITALS: BP 156/89; PULSE 93; RESP 16; TEMP 35.6; O2SAT 96
[2022-09-27] MEDS: Hydrocortisone Sod Succinate 100 MG/2 ML Vial IV (14:42)
== END 2022-09-27 12:34 | disposition home or self-care (01) ==
LOC: MEDOUTP 12:33
PROVIDERS: PCP Nurse Practitioner Family; Referring Provider Internal Medicine Hematology & Oncology; Visit Provider Internal Medicine Hematology & Oncology
DX: D61.818 Other pancytopenia (principal)
CPT/HCPCS: 36430; 86900; 86901; 86965; J7040; P9035; A4216

== ENCOUNTER 2022-10-04 12:26 | Outpatient (CLI) | payer MEDICARE, BC, SELFPAY ==
[2022-10-04] MEDS: 0.9% NaCl VAD Flush IV ×2 (12:57→14:23)
[2022-10-04 12:59] VITALS: BP 152/75; PULSE 106; RESP 16; TEMP 36.1; O2SAT 95; BMI 31.7
[2022-10-04 13:20] VITALS: BP 132/69; PULSE 78; RESP 16; TEMP 35.7; O2SAT 97
[2022-10-04 13:51] VITALS: BP 130/71; PULSE 79; RESP 16; TEMP 36.1
[2022-10-04 14:21] VITALS: BP 125/72; PULSE 81; RESP 16; TEMP 35.7; O2SAT 98
== END 2022-10-04 12:27 | disposition home or self-care (01) ==
LOC: MEDOUTP 12:26
PROVIDERS: PCP Nurse Practitioner Family; Referring Provider Internal Medicine Hematology & Oncology; Visit Provider Internal Medicine Hematology & Oncology
DX: D61.818 Other pancytopenia (principal)
CPT/HCPCS: 36430; 86900; 86901; 86965; J7040; P9035; A4216

== ENCOUNTER 2022-10-07 08:58 | Outpatient (CLI) | payer MEDICARE, BC, SELFPAY ==
[2022-10-07] VITALS (8 sets, daily range): BP systolic 133–152; BP diastolic 67–80; PULSE 68–80; RESP 16; TEMP 35.8–36.2; O2SAT 96–98; BMI 31.7
[2022-10-07] MEDS: 0.9% NaCl VAD Flush IV (09:24)
== END 2022-10-07 08:59 | disposition home or self-care (01) ==
PROVIDERS: PCP Nurse Practitioner Family; Visit Provider Internal Medicine Hematology & Oncology
DX: D61.818 Other pancytopenia (principal)
CPT/HCPCS: 36430; 86850; 86900; 86901; 86920; 86922; 86965; J7040; P9016; P9035; A4216

== ENCOUNTER 2022-10-12 11:39 | Outpatient (CLI) | payer MEDICARE, BC, SELFPAY ==
[2022-10-12] MEDS: 0.9% NaCl VAD Flush IV (11:46)
[2022-10-12 11:52] VITALS: BP 161/88; PULSE 87; RESP 16; TEMP 35.7; O2SAT 99; BMI 31.7
[2022-10-12 12:21] VITALS: BP 137/79; PULSE 86; RESP 16; TEMP 35.9; O2SAT 99
[2022-10-12 12:41] VITALS: BP 128/72; PULSE 82; RESP 16; TEMP 35.9; O2SAT 99
[2022-10-12 13:14] VITALS: BP 139/59; PULSE 84; RESP 16; TEMP 35.9; O2SAT 97
[2022-10-12 13:24] VITALS: BP 123/77; PULSE 82; RESP 16; TEMP 36.1; O2SAT 99
[2022-10-12 14:18] VITALS: BP 125/65; PULSE 80
== END 2022-10-12 11:40 | disposition home or self-care (01) ==
LOC: MEDOUTP 11:40
PROVIDERS: PCP Nurse Practitioner Family; Referring Provider Internal Medicine Hematology & Oncology; Visit Provider Internal Medicine Hematology & Oncology
DX: D61.818 Other pancytopenia (principal)
CPT/HCPCS: 36430; 86900; 86901; 86965; J7040; P9035; A4216